=== PATIENT | male | born 1980 ===

== ENCOUNTER 2018-01-16 19:56 | Inpatient (IN) | payer MEDICARE, MEDICAID ==
[2018-01-16 19:56] VITALS: BMI 47.4
--- NOTE | 2018-01-16 20:25 | C.PDOC ---
History Of Present Illness 37yo male with history of appendectomy, GERD, colitis, diabetes, presents to ED for evaluation of epigastric abdominal pain since 1 pm today. Patient states he "felt the pain coming on" all day so he has not eaten anything. He states the pain has been worsening, is worse with deep inspiration, and is associated with nausea. He reports the pain also worsens with deep inspiration. Patient denies any fever, chills, vomiting, diarrhea, chest pain, shortness of breath. He denies any drug or alcohol use as well. He offers no other medical complaints. Time Seen by Provider: 01/16/18 20:25 Chief Complaint (Nursing): Abdominal Pain History Per: Patient History/Exam Limitations: no limitations Onset/Duration Of Symptoms: Hrs Current Symptoms Are (Timing): Still Present Location Of Pain/Discomfort: Epigastric Quality Of Discomfort: "Pain" Associated Symptoms: Nausea. denies: Fever, Chills, Vomiting, Diarrhea, Chest Pain Additional History Per: Patient Past Medical History Reviewed: Historical Data, Nursing Documentation, Vital Signs Vital Signs: Last Vital Signs Temp 97.4 F L 01/17/18 01:47 Pulse 84 01/17/18 01:47 Resp 20 01/17/18 01:47 BP 100/63 01/17/18 01:47 Pulse Ox 97 01/17/18 01:47 - Medical History PMH: Anxiety, Asthma, Bipolar Disorder, Bronchitis, Depression, Hypercholesterolemia, Schizophrenia, Seizures (PT. NOT SURE ONLY ONCE "I THINK BECAUSE I ABBY'T EATEN") Surgical History: Appendectomy - [facility] Procedures CLOSED ENDOSCOPIC BIOPSY OF LARGE INTESTINE (05/30/14) TETANUS TOXOID ADMINIST (05/26/13) Family History: States: Unknown Family Hx - Social History Hx Tobacco Use: Yes Hx Alcohol Use: Yes Hx Substance Use: Yes (marijuana) - Immunization History Hx Tetanus Toxoid Vaccination: No Hx Influenza Vaccination: No Hx Pneumococcal Vaccination: No Review Of Systems Except As Marked, All Systems Reviewed And Found Negative. Constitutional: Negative for: Fever, Chills Cardiovascular: Negative for: Chest Pain Gastrointestinal: Positive for: Nausea, Abdominal Pain. Negative for: Vomiting Physical Exam - Physical Exam Appears: Non-toxic Skin: Normal Color, Warm Head: Atraumatic, Normacephalic Eye(s): bilateral: Normal Inspection, PERRL, EOMI Oral Mucosa: Moist Neck: Normal ROM, Supple Chest: Symmetrical Cardiovascular: Rhythm Regular Respiratory: Normal Breath Sounds Gastrointestinal/Abdominal: Soft, Tenderness (epigastric and left upper quadrant ), No Mass, No Guarding, No Rebound Back: Normal Inspection, No CVA Tenderness Extremity: Normal ROM, No Pedal Edema Pulses: Left Dorsalis Pedis: Normal, Right Dorsalis Pedis: Normal Neurological/Psych: Oriented x3 ED Course And Treatment - Laboratory Results Result Diagrams: 01/16/18 20:49 01/16/18 20:49 ECG: Interpreted By Me, Viewed By Me ECG Rhythm: Sinus Rhythm ECG Interpretation: Normal Interpretation Of ECG: No ectopy, normal intervals Rate From EC O2 Sat by Pulse Oximetry: 99 (RA) Pulse Ox Interpretation: Normal Medical Decision Making Medical Decision Making: Impression: Epigastric abdominal pain Plan: -- Labs -- CXR -- IV Fluids -- Lidocaine 2% 15ml PO -- Zofran 4mg IVP -- Protonix 40mg IVP Time: 2149 Urinalysis reviewed, no signs of infection noted. Patient reports persistent abdominal pain, CT Abdomen/Pelvis with IV Contrast ordered. Time: 2234 CT Abdomen/Pelvis FINDINGS: Lung bases: No acute findings. Mediastinum: Small hiatal hernia. ABDOMEN: Liver: Few low-attenuation lesions with benign imaging features, up to 1.0 cm, stable. Gallbladder and bile ducts: No calcified stones. No ductal dilation. Pancreas: No ductal dilation. No mass. Spleen: No splenomegaly. Adrenals: No mass. Kidneys and ureters: Small calculus within LEFT kidney. Probable 1.1 cm RIGHT renal cyst. No hydronephrosis. Stomach and bowel: Scattered diverticula within colon. Moderate mural thickening short segment of distal descending colon. Moderate stranding within adjacent fat. No obstruction. Appendix: Appendectomy. PELVIS: Bladder: Borderline bladder wall thickening, 4-5 mm. Incomplete distention, limiting evaluation. Reproductive: Unremarkable as visualized. ABDOMEN and PELVIS: Intraperitoneal space: Small free fluid within pelvis. Few scattered tiny foci of extraluminal air within abdomen. Bones/joints: Degenerative changes of spine. No acute fracture. Soft tissues: Tiny RIGHT inguinal hernia containing fat. Small LEFT inguinal hernia containing fat. Tiny umbilical hernia containing fat. Vasculature: Unremarkable. No aneurysm. Lymph nodes: No pathologically enlarged lymph nodes. IMPRESSION: 1. Findings compatible with acute diverticulitis and perforation of descending colon. Recommend endoscopy following resolution. 2. Mild cystitis vs underdistention. Correlate with urinalysis. 3. Incidental/non-acute findings are described above. Time: [address] Ambrosio, who will admit patient. IV Rocephin and Flagyl ordered. Time: 2339 Case discussed with surgical nurse, consult placed for Dr. Welch. Disposition - Disposition Disposition: HOSPITALIZED Disposition Time: 04:01 Condition: GOOD - Clinical Impression Clinical Impression: Diverticulitis - Scribe Statement The provider has reviewed the documentation as recorded by the Scribe (Chiara Finnegan) Provider Attestation: All medical record entries made by the Scribe were at my direction and personally dictated by me. I have reviewed the chart and agree that the record accurately reflects my personal performance of the history, physical exam, medical decision making, and the department course for this patient. I have also personally directed, reviewed, and agree with the discharge instructions and disposition.
[2018-01-16] MEDS ORDERED: Sodium Chloride 0.9% 1,000 ML IV ONE (20:34)
[2018-01-16] MEDS ORDERED: Aluminum Hydroxide/Magnesium Hydroxide Susp (30 mL) PO STA (20:34)
[2018-01-16] MEDS ORDERED: Sodium Chloride 0.9% 1,000 ML ONE (20:43)
[2018-01-16] MEDS ORDERED: Aluminum Hydroxide/Magnesium Hydroxide Susp (30 mL) ONE (20:43)
[2018-01-16 20:52] LABS: BASO # 0.1 K/uL (0.0-0.2); BASO % 0.4 % (0.0-2.0); EOS % 0.1 % (0.0-4.0); HEMOGLOBIN 16.4 g/dL (12.0-18.0); LYMPH # 0.9 K/uL (1.0-4.3); LYMPH % 6.1 % (20.0-40.0); MEAN CELL VOLUME 89.8 fL (80.0-94.0); MEAN CORPUSCULAR HEMOGLOBIN 31.4 pg (27.0-31.0); MEAN PLATELET VOLUME 8.4 fL (7.2-11.7); MONO # 1.3 K/uL (0.0-0.8); MONO % 9.1 % (0.0-10.0); NEUT % 84.3 % (50.0-75.0); PLATELET COUNT 231 K/uL (130-400); RBC 5.23 Mil/uL (4.40-5.90); RED CELL DISTRIBUTION WIDTH 12.9 % (11.5-14.5); WHITE BLOOD COUNT 14.2 K/uL (4.8-10.8)
[2018-01-16 21:09] LABS: ALB/GLOB RATIO 0.9 (1.0-2.1); ALBUMIN 4.2 g/dL (3.5-5.0); ALT/SGPT 30 U/L (21-72); AST/SGOT 33 U/L (17-59); BLOOD UREA NITROGEN 13 mg/dL (9-20); CALCIUM 9.6 mg/dl (8.6-10.4); GFR AFRICAN-AMERICAN > 60; GFR NON-AFRICAN AMERICAN > 60; LIPASE 63 U/L (23-300)
[2018-01-16 21:42] LABS: BANDS 1 % (0-2); LYMPHOCYTE 5 % (20-40); MONOCYTE 10 % (0-10); NEUTROPHIL 84 % (50-75); PLATELET ESTIMATE NORMAL (NORMAL); TOTAL CELLS COUNTED 100
[2018-01-16 21:49] LABS: URINE BILIRUBIN NEGATIVE (NEGATIVE); URINE BLOOD NEGATIVE (NEGATIVE); URINE CLARITY Clear (Clear); URINE COLOR Yellow (YELLOW); URINE GLUCOSE (UA) NORMAL (Normal); URINE LEUKOCYTE ESTERASE NEG Leu/uL (Negative); URINE PROTEIN NEGATIVE (NEGATIVE)
[2018-01-16] MEDS ORDERED: Morphine 4 MG/ML VIAL IV ONE ×2 (21:54→23:50)
[2018-01-16] MEDS ORDERED: Morphine 4 MG/ML VIAL ONE (22:02)
[2018-01-16] MEDS ORDERED: Iodixanol 320 MG/ML 100 ML BOTTLE IV ONE (22:24)
--- NOTE | 2018-01-16 23:32 | CT ---
EXAM: CT Abdomen and Pelvis With Intravenous Contrast CLINICAL HISTORY: 37 years old, male; Pain; Abdominal pain; Epigastric; Prior surgery; Surgery date: 6+ months; Surgery type: Appendectomy as a child; Patient HX: Gerd , dm; Additional info: Abd pain since 1 pm today TECHNIQUE: Axial computed tomography images of the abdomen and pelvis with intravenous contrast. All CT scans at this facility use one or more dose reduction techniques, viz.: automated exposure control; ma/kV adjustment per patient size (including targeted exams where dose is matched to indication; i.e. head); or iterative reconstruction technique. Coronal and sagittal reformatted images were created and reviewed. CONTRAST: 100 mL of visipaque administered intravenously. COMPARISON: CT - ABD PELVIS IV CONTRAST ONLY 2015-01-03 12:44 FINDINGS: Lung bases: No acute findings. Mediastinum: Small hiatal hernia. ABDOMEN: Liver: Few low-attenuation lesions with benign imaging features, up to 1.0 cm, stable. Gallbladder and bile ducts: No calcified stones. No ductal dilation. Pancreas: No ductal dilation. No mass. Spleen: No splenomegaly. Adrenals: No mass. Kidneys and ureters: Small calculus within LEFT kidney. Probable 1.1 cm RIGHT renal cyst. No hydronephrosis. Stomach and bowel: Scattered diverticula within colon. Moderate mural thickening short segment of distal descending colon. Moderate stranding within adjacent fat. No obstruction. Appendix: Appendectomy. PELVIS: Bladder: Borderline bladder wall thickening, 4-5 mm. Incomplete distention, limiting evaluation. Reproductive: Unremarkable as visualized. ABDOMEN and PELVIS: Intraperitoneal space: Small free fluid within pelvis. Few scattered tiny foci of extraluminal air within abdomen. Bones/joints: Degenerative changes of spine. No acute fracture. Soft tissues: Tiny RIGHT inguinal hernia containing fat. Small LEFT inguinal hernia containing fat. Tiny umbilical hernia containing fat. Vasculature: Unremarkable. No aneurysm. Lymph nodes: No pathologically enlarged lymph nodes. IMPRESSION: 1. Findings compatible with acute diverticulitis and perforation of descending colon. Recommend endoscopy following resolution. 2. Mild cystitis vs underdistention. Correlate with urinalysis. 3. Incidental/non-acute findings are described above. THIS REPORT CONTAINS FINDINGS THAT MAY BE CRITICAL TO PATIENT CARE. The findings were verbally communicated via telephone conference with Rosa Enrique at 11:31 PM EDT on 01/16/2018. The findings were acknowledged and understood.
[2018-01-16] MEDS ORDERED: cefTRIAXone 1 gm in Water For Injection 2.1 ML IVPB STA (23:47)
[2018-01-16] MEDS ORDERED: metroNIDAZOLE IV 500 mg/100 ml 500 MG/100 ML BAG IVPB STA (23:49)
[2018-01-17] MEDS ORDERED: cefTRIAXone IV 1 gm in Dextros 50 ML IVPB STA
--- NOTE | 2018-01-17 00:08 | CP.PCM.HP ---
<RonelCrescencio bland - Last Filed: 01/17/18 00:42> History of Present Illness - History of Present Illness History of Present Illness: CC: Abdominal pain, diarrhea,nausea for 1d PMD: Dr. Nam in [facility] This patient is a 37yo M w/ a PMhx of depression/anxiety on Modafanil, HTN, and DM (not taking HTn or DM meds) who is coming into the hospital for a 1d history of intense, band like, abdominal pain associated with nausea and diarrhea. He denies blood in the stool. He has had pain like this in the past before, but never this bad and it normally goes away on its own. He admits to fevers/chills , and feeling very thirsty. He denies any chest pain, SOB, dysuria/freq/urg or lower extremity pain/swelling. PMHx: depression/anxiety, HTN, DM Meds: Modafanil, cannot remember HTN or DM meds Allergies: None Surgery: Appendectomy at age 14 Famhx: DM, HTN, Epilepsy, mother at 62 from diabetes and epilepsy Social: previous smoker, 1ppd for 24 years, stopped 2 weeks ago, monthly marijuana use, denies all other illicit drugs or EtOH Present on Admission - Present on Admission Any Indicators Present on Admission: No History of DVT/PE: No History of Uncontrolled Diabetes: Yes Urinary Catheter: No Decubitus Ulcer Present: No Past Patient History - Infectious Disease Hx of Infectious Diseases: None - Past Medical History & Family History Past Medical History?: Yes - Past Social History Smoking Status: Heavy Smoker > 10 Cigarettes Daily - CARDIAC Hx Hypercholesterolemia: Yes - PULMONARY Hx Asthma: Yes Hx Bronchitis: Yes - NEUROLOGICAL Hx Seizures: Yes (PT. NOT SURE ONLY ONCE "I THINK BECAUSE I ABBY'T EATEN") - HEENT Hx HEENT Problems: Yes Hx Cataracts: Yes (BILAT. - NO SURGERY YET) - ENDOCRINE/METABOLIC Hx Endocrine Disorders: Yes Hx Diabetes Mellitus Type 1: Yes - HEMATOLOGICAL/ONCOLOGICAL Hx Cancer: No - INTEGUMENTARY Hx Dermatological Problems: No - MUSCULOSKELETAL/RHEUMATOLOGICAL Hx Musculoskeletal Disorders: No - GASTROINTESTINAL Hx Gastrointestinal Disorders: No - GENITOURINARY/GYNECOLOGICAL Hx Genitourinary Disorders: No - PSYCHIATRIC Hx Anxiety: Yes Hx Bipolar Disorder: Yes Hx Depression: Yes Hx Schizophrenia: Yes Hx Substance Use: Yes (marijuana) - SURGICAL HISTORY Hx Appendectomy: Yes - ANESTHESIA Hx Anesthesia: Yes Hx Anesthesia Reactions: No Hx Malignant Hyperthermia: No Meds Allergies/Adverse Reactions: Allergies Allergy/AdvReac Type Severity Reaction Status Date / Time No Known Allergies Allergy Verified 01/16/18 20:16 Physical Exam - Constitutional Appears: Non-toxic Additional comments: uncomfortable; tired but response to questions in obvious pain - Head Exam Head Exam: ATRAUMATIC - Eye Exam Eye Exam: EOMI, Normal appearance, PERRL Pupil Exam: PERRL - ENT Exam ENT Exam: Mucous Membranes Dry - Neck Exam Neck exam: Positive for: Full Rom. Negative for: Lymphadenopathy, Thyromegaly - Respiratory Exam Respiratory Exam: Clear to Auscultation Bilateral, NORMAL BREATHING PATTERN. absent: Rales, Rhonchi, Wheezes - Cardiovascular Exam Cardiovascular Exam: Tachycardia, +S1, +S2. absent: Diastolic murmur, Systolic Murmur - GI/Abdominal Exam GI & Abdominal Exam: Guarding, Rebound, Soft, Tenderness. absent: Normal Bowel Sounds (hyperactive bowel sounds), Organomegaly, Pulsatile Mass, Rigid - Extremities Exam Extremities exam: Positive for: full ROM. Negative for: calf tenderness, pedal edema - Back Exam Back exam: NORMAL INSPECTION. absent: CVA tenderness (L), CVA tenderness (R) - Neurological Exam Neurological exam: Alert, Oriented x3 - Psychiatric Exam Psychiatric exam: Normal Affect - Skin Skin Exam: Warm Results - Vital Signs Recent Vital Signs: Last Vital Signs Temp 98.5 F 01/16/18 20:09 Pulse 86 01/16/18 23:05 Resp 18 01/16/18 23:05 BP 112/60 01/16/18 23:05 Pulse Ox 99 01/16/18 23:41 - Labs Result Diagrams: 01/16/18 20:49 01/16/18 20:49 Labs: Laboratory Results - last 24 hr 01/16/18 01/16/18 01/16/18 20:49 20:49 21:43 WBC 14.2 H D RBC 5.23 Hgb 16.4 Hct 46.9 MCV 89.8 MCH 31.4 H MCHC 35.0 RDW 12.9 Plt Count 231 MPV 8.4 Neut % (Auto) 84.3 H Lymph % (Auto) 6.1 L Weber % (Auto) 9.1 Eos % (Auto) 0.1 Baso % (Auto) 0.4 Neut # (Auto) 12.0 H Lymph # (Auto) 0.9 L Weber # (Auto) 1.3 H Eos # (Auto) 0.0 Baso # (Auto) 0.1 Neutrophils % (Manual) 84 H Band Neutrophils % 1 Lymphocytes % (Manual) 5 L Monocytes % (Manual) 10 Platelet Estimate Normal Sodium 136 Potassium 4.1 Chloride 95 L Carbon Dioxide 28 Anion Gap 17 BUN 13 Creatinine 1.0 Est GFR ( Amer) > 60 Est GFR (Non-Af Amer) > 60 Random Glucose 130 H Calcium 9.6 Total Bilirubin 1.2 AST 33 ALT 30 Alkaline Phosphatase 58 Troponin I < 0.0120 Total Protein 8.9 H Albumin 4.2 Globulin 4.7 H Albumin/Globulin Ratio 0.9 L Lipase 63 Urine Color Yellow Urine Clarity Clear Urine pH 6.0 Ur Specific [place] 1.024 Urine Protein Negative Urine Glucose (UA) Normal Urine Ketones Negative Urine Blood Negative Urine Nitrate Negative Urine Bilirubin Negative Urine Urobilinogen 4.0 Ur Leukocyte Esterase Neg Urine WBC (Auto) 1 Urine RBC (Auto) 2 Assessment & Plan - Assessment and Plan (Free Text) Assessment: 37yo M admitted for Severe Diverticulitis with Microperforations Severe Recurrent Diverticulitis with Microperforation; 3rd instance -please refer to CAT scan for full results -received cipro and ceftriaxone in ED; will c/w with Zosyn 3.375mg Q6H and metronidazole 500mg Q8H -surgical consult; Dr. Welch; appreciate recs -NPO -1L bolus followed by 150ml/Hr maintenance -WBC 14.2, with tachycardia and source of infection -f/u VBG Lactate and blood cultures -f/u type and screen, EKG, Chest-X-ray for surgical clearance Uncontrolled DM -f/u HBA1C -insulin Low -hypoglycemia protocol -f/u TSH/Lipid Panel Depression/Anxiety -c/w Modafanil Prophylaxis -SCD -GI prophylaxis not indicated Case discussed and seen with Dr. Daily Mart PGY2 Decision To Admit - Pt Status Changed To: Hospital Disposition Of: Inpatient - Admit Certification Admit to Inpatient:: After my assessment, the patient will require hospitalization for at least two midnights. This is because of the severity of symptoms shown, intensity of services needed, and/or the medical risk in this patient being treated as an outpatient. - InPatient: Physician Admission Certification:: Sepsis, Severe recurrent diverticulitis - . Bed Request Type: Telemetry Admitting Physician: Dilip Ambrosio <Dilip Ambrosio - Last Filed: 01/17/18 07:22> Results - Vital Signs Recent Vital Signs: Last Vital Signs Temp 97.4 F L 01/17/18 01:47 Pulse 84 01/17/18 01:47 Resp 20 01/17/18 01:47 BP 100/63 01/17/18 01:47 Pulse Ox 99 01/17/18 04:02 - Labs Result Diagrams: 01/16/18 20:49 01/16/18 20:49 Labs: Laboratory Results - last 24 hr 01/16/18 01/16/18 01/16/18 20:49 20:49 21:43 WBC 14.2 H D RBC 5.23 Hgb 16.4 Hct 46.9 MCV 89.8 MCH 31.4 H MCHC 35.0 RDW 12.9 Plt Count 231 MPV 8.4 Neut % (Auto) 84.3 H Lymph % (Auto) 6.1 L Weber % (Auto) 9.1 Eos % (Auto) 0.1 Baso % (Auto) 0.4 Neut # (Auto) 12.0 H Lymph # (Auto) 0.9 L Weber # (Auto) 1.3 H Eos # (Auto) 0.0 Baso # (Auto) 0.1 Neutrophils % (Manual) 84 H Band Neutrophils % 1 Lymphocytes % (Manual) 5 L Monocytes % (Manual) 10 Platelet Estimate Normal pO2 VBG pH VBG pCO2 VBG HCO3 VBG Total CO2 VBG O2 Sat (Calc) VBG Base Excess VBG Potassium Glucose Lactate Crit Value Called To Crit Value Called By Crit Value Read Back Blood Gas Notified Time Sodium 136 Potassium 4.1 Chloride 95 L Carbon Dioxide 28 Anion Gap 17 BUN 13 Creatinine 1.0 Est GFR ( Amer) > 60 Est GFR (Non-Af Amer) > 60 POC Glucose (mg/dL) Random Glucose 130 H Calcium 9.6 Total Bilirubin 1.2 AST 33 ALT 30 Alkaline Phosphatase 58 Troponin I < 0.0120 Total Protein 8.9 H Albumin 4.2 Globulin 4.7 H Albumin/Globulin Ratio 0.9 L Lipase 63 Venous Blood Potassium Urine Color Yellow Urine Clarity Clear Urine pH 6.0 Ur Specific [place] 1.024 Urine Protein Negative Urine Glucose (UA) Normal Urine Ketones Negative Urine Blood Negative Urine Nitrate Negative Urine Bilirubin Negative Urine Urobilinogen 4.0 Ur Leukocyte Esterase Neg Urine WBC (Auto) 1 Urine RBC (Auto) 2 Urine Opiates Screen Urine Methadone Screen Ur Barbiturates Screen Ur Phencyclidine Scrn Ur Amphetamines Screen U Benzodiazepines Scrn U Oth Cocaine Metabols Blood Type Antibody Screen 01/17/18 01/17/18 01/17/18 00:03 00:28 00:37 WBC RBC Hgb Hct MCV MCH MCHC RDW Plt Count MPV Neut % (Auto) Lymph % (Auto) Weber % (Auto) Eos % (Auto) Baso % (Auto) Neut # (Auto) Lymph # (Auto) Weber # (Auto) Eos # (Auto) Baso # (Auto) Neutrophils % (Manual) Band Neutrophils % Lymphocytes % (Manual) Monocytes % (Manual) Platelet Estimate pO2 43 VBG pH 7.40 VBG pCO2 40 VBG HCO3 24.4 VBG Total CO2 26.0 VBG O2 Sat (Calc) 84.7 H VBG Base Excess 0.0 VBG Potassium 3.8 Glucose 112 H Lactate 1.5 Crit Value Called To Dr ambrosio Crit Value Called By Elizabeth alejandre rt Crit Value Read Back Y Blood Gas Notified Time 122 Sodium 136.0 Potassium Chloride 103.0 Carbon Dioxide Anion Gap BUN Creatinine Est GFR ( Amer) Est GFR (Non-Af Amer) POC Glucose (mg/dL) 135 H Random Glucose Calcium Total Bilirubin AST ALT Alkaline Phosphatase Troponin I Total Protein Albumin Globulin Albumin/Globulin Ratio Lipase Venous Blood Potassium 3.8 Urine Color Urine Clarity Urine pH Ur Specific [place] Urine Protein Urine Glucose (UA) Urine Ketones Urine Blood Urine Nitrate Urine Bilirubin Urine Urobilinogen Ur Leukocyte Esterase Urine WBC (Auto) Urine RBC (Auto) Urine Opiates Screen Negative Urine Methadone Screen Negative Ur Barbiturates Screen Negative Ur Phencyclidine Scrn Negative Ur Amphetamines Screen Negative U Benzodiazepines Scrn Negative U Oth Cocaine Metabols Negative Blood Type Antibody Screen 01/17/18 00:41 WBC RBC Hgb Hct MCV MCH MCHC RDW Plt Count MPV Neut % (Auto) Lymph % (Auto) Weber % (Auto) Eos % (Auto) Baso % (Auto) Neut # (Auto) Lymph # (Auto) Weber # (Auto) Eos # (Auto) Baso # (Auto) Neutrophils % (Manual) Band Neutrophils % Lymphocytes % (Manual) Monocytes % (Manual) Platelet Estimate pO2 VBG pH VBG pCO2 VBG HCO3 VBG Total CO2 VBG O2 Sat (Calc) VBG Base Excess VBG Potassium Glucose Lactate Crit Value Called To Crit Value Called By Crit Value Read Back Blood Gas Notified Time Sodium Potassium Chloride Carbon Dioxide Anion Gap BUN Creatinine Est GFR ( Amer) Est GFR (Non-Af Amer) POC Glucose (mg/dL) Random Glucose Calcium Total Bilirubin AST ALT Alkaline Phosphatase Troponin I Total Protein Albumin Globulin Albumin/Globulin Ratio Lipase Venous Blood Potassium Urine Color Urine Clarity Urine pH Ur Specific [place] Urine Protein Urine Glucose (UA) Urine Ketones Urine Blood Urine Nitrate Urine Bilirubin Urine Urobilinogen Ur Leukocyte Esterase Urine WBC (Auto) Urine RBC (Auto) Urine Opiates Screen Urine Methadone Screen Ur Barbiturates Screen Ur Phencyclidine Scrn Ur Amphetamines Screen U Benzodiazepines Scrn U Oth Cocaine Metabols Blood Type A NEGATIVE Antibody Screen Negative Attending/Attestation - Attestation I have personally seen and examined this patient.: Yes I have fully participated in the care of the patient.: Yes I have reviewed all pertinent clinical information: Yes Notes (Text): 3 episodes of diverticulitis in the same area, seen on CT 2012, this time with microprforation, fever, sepsis. Plan NPO IV abx IVF When recovers from the episode then need removal of portion of the descending colon, to prevent recurrences, High fiber diet for chronic constipation once recovers form the episode.
[2018-01-17] MEDS ORDERED: Morphine 4 MG/ML VIAL ONE (00:10)
[2018-01-17] MEDS ORDERED: Sodium Chloride 0.9% 1,000 ML IV ONE ×2 (00:34→01:19)
[2018-01-17] MEDS ORDERED: Glucagon Recombinant 1 mg Inj IM PRN (00:46)
[2018-01-17] MEDS ORDERED: Dextrose 50% SYRINGE Inj (50 ml) IV PRN (00:46)
[2018-01-17 00:59] LABS: BARBITURATES, UR NEGATIVE (NEGATIVE); BENZODIAZEPINES, UR NEGATIVE (NEGATIVE); OPIATES, UR NEGATIVE (NEGATIVE); PHENCYCLIDINE, UR NEGATIVE (NEGATIVE)
[2018-01-17 01:23] LABS: VENOUS BLOOD GAS PCO2 40 mmHg (40-60); VENOUS BLOOD GAS PO2 43 mm/Hg (30-55)
[2018-01-17] MEDS: Piperacill/Tazo 3.375gm in Dex 3.375 GM/50 ML BAG IVPB SCH ×4 (01:55→18:05)
[2018-01-17] MEDS: Sodium Chloride 0.9% 1,000 ML IV SCH ×4 (02:00→20:15)
[2018-01-17] MEDS: metroNIDAZOLE IV 500 mg/100 ml 500 MG/100 ML BAG IVPB SCH ×3 (05:41→21:31)
--- NOTE | 2018-01-17 06:30 | CP.PCM.CON ---
History of Present Illness - History of Present Illness History of Present Illness: General Surgery - Dr. Welch 37yo w/ hx of Depression presenting with LLQ abdominal pain since yesterday. Pt states the pain began around 1pm, located in the central and LLQ abdomen, radiating up towards the epigastric region, described as a sharp/scratching pain. He had associated nausea, and subjective fevers/chills. He denies any vomiting, diarrhea, dysuria, hematuria, blood in stool. He also admits to constipation. Pt states he's had diverticulitis 1 or 2 times before in the past which was treated conservatively PMH: depression, HTN, DM PSH: Open appy at age 14 Meds as per Chart NKDA Social: previous smoker, 1ppd for 24 years, stopped 2 weeks ago, monthly marijuana use, denies all other illicit drugs or EtOH Review of Systems - Review of Systems All systems: reviewed and no additional remarkable complaints except (as per HPI ) Past Patient History - Infectious Disease Hx of Infectious Diseases: None - Past Medical History & Family History Past Medical History?: Yes - Past Social History Smoking Status: Heavy Smoker > 10 Cigarettes Daily - CARDIAC Hx Hypercholesterolemia: Yes - PULMONARY Hx Asthma: Yes Hx Bronchitis: Yes - NEUROLOGICAL Hx Seizures: Yes (PT. NOT SURE ONLY ONCE "I THINK BECAUSE I ABBY'T EATEN") - HEENT Hx HEENT Problems: Yes Hx Cataracts: Yes (BILAT. - NO SURGERY YET) - ENDOCRINE/METABOLIC Hx Endocrine Disorders: Yes Hx Diabetes Mellitus Type 1: Yes - HEMATOLOGICAL/ONCOLOGICAL Hx Cancer: No - INTEGUMENTARY Hx Dermatological Problems: No - MUSCULOSKELETAL/RHEUMATOLOGICAL Hx Falls: No - GASTROINTESTINAL Hx Gastrointestinal Disorders: No - GENITOURINARY/GYNECOLOGICAL Hx Genitourinary Disorders: No - PSYCHIATRIC Hx Anxiety: Yes Hx Bipolar Disorder: Yes Hx Depression: Yes Hx Schizophrenia: Yes Hx Substance Use: Yes (marijuana) - SURGICAL HISTORY Hx Appendectomy: Yes - ANESTHESIA Hx Anesthesia: Yes Hx Anesthesia Reactions: No Hx Malignant Hyperthermia: No Meds Allergies/Adverse Reactions: Allergies Allergy/AdvReac Type Severity Reaction Status Date / Time No Known Allergies Allergy Verified 01/16/18 20:16 - Medications Medications: Current Medications Dextrose (Dextrose 50% Inj) 0 ml IV STAT PRN; Protocol PRN Reason: Hypoglycemia Protocol Dextrose (Glutose 15) 0 gm PO ONCE PRN; Protocol PRN Reason: Hypoglycemia Protocol Glucagon (Glucagen Diagnostic Kit) 0 mg IM STAT PRN; Protocol PRN Reason: Hypoglycemia Protocol Sodium Chloride (Sodium Chloride 0.9%) 1,000 mls @ 150 mls/hr IV .Q6H40M [facility] Last Admin: 01/17/18 02:00 Dose: 150 mls/hr Metronidazole (Flagyl) 500 mg in 100 mls @ 100 mls/hr IVPB Q8 [facility] PRN Reason: Protocol Last Admin: 01/17/18 05:41 Dose: 100 mls/hr Piperacillin Sod/Tazobactam Sod (Zosyn 3.375 Gm Iv Premix) 3.375 gm in 50 mls @ 100 mls/hr IVPB Q6H [facility] PRN Reason: Protocol Last Admin: 01/17/18 01:55 Dose: 100 mls/hr Dextrose (Dextrose 5% In Water 1000 Ml) 1,000 mls @ 0 mls/hr IV .Q0M PRN; Protocol; Per Protocol PRN Reason: Hypoglycemia Protocol Insulin Aspart (Novolog) 0 unit SC ACHS [facility] PRN Reason: Protocol Ketorolac Tromethamine (Toradol) 30 mg IV Q6 PRN PRN Reason: Pain, moderate (4-7) Last Admin: 01/17/18 01:53 Dose: 30 mg Modafinil (Provigil) 100 mg PO DAILY [facility] Morphine Sulfate (Morphine) 2 mg IVP Q6H PRN PRN Reason: Pain, severe (8-10) Ondansetron HCl (Zofran Inj) 4 mg IVP Q6 PRN PRN Reason: Nausea/Vomiting Pneumococcal Polyvalent Vaccine (Pneumovax 23 Vaccine) 0.5 ml IM .ONCE ONE Stop: 01/20/18 10:01 Physical Exam - Constitutional Appears: No Acute Distress - Head Exam Head Exam: ATRAUMATIC, NORMAL INSPECTION, NORMOCEPHALIC - Eye Exam Eye Exam: Normal appearance - Respiratory Exam Respiratory Exam: NORMAL BREATHING PATTERN. absent: Respiratory Distress - Cardiovascular Exam Cardiovascular Exam: REGULAR RHYTHM - GI/Abdominal Exam GI & Abdominal Exam: Guarding, Soft, Tenderness (LLQ, Periumbilical). absent: Distended, Firm, Hernia, Rebound, Rigid - Neurological Exam Neurological exam: Alert, Oriented x3 - Psychiatric Exam Psychiatric exam: Normal Affect, Normal Mood - Skin Skin Exam: Dry, Intact Results - Vital Signs Recent Vital Signs: Last Vital Signs Temp 97.4 F L 01/17/18 01:47 Pulse 84 01/17/18 01:47 Resp 20 01/17/18 01:47 BP 100/63 01/17/18 01:47 Pulse Ox 99 01/17/18 04:02 - Labs Result Diagrams: 01/16/18 20:49 01/16/18 20:49 Labs: Laboratory Results - last 24 hr 01/16/18 01/16/18 01/16/18 20:49 20:49 21:43 WBC 14.2 H D RBC 5.23 Hgb 16.4 Hct 46.9 MCV 89.8 MCH 31.4 H MCHC 35.0 RDW 12.9 Plt Count 231 MPV 8.4 Neut % (Auto) 84.3 H Lymph % (Auto) 6.1 L [place] % (Auto) 9.1 Eos % (Auto) 0.1 Baso % (Auto) 0.4 Neut # (Auto) 12.0 H Lymph # (Auto) 0.9 L [place] # (Auto) 1.3 H Eos # (Auto) 0.0 Baso # (Auto) 0.1 Neutrophils % (Manual) 84 H Band Neutrophils % 1 Lymphocytes % (Manual) 5 L Monocytes % (Manual) 10 Platelet Estimate Normal pO2 VBG pH VBG pCO2 VBG HCO3 VBG Total CO2 VBG O2 Sat (Calc) VBG Base Excess VBG Potassium Glucose Lactate Crit Value Called To Crit Value Called By Crit Value Read Back Blood Gas Notified Time Sodium 136 Potassium 4.1 Chloride 95 L Carbon Dioxide 28 Anion Gap 17 BUN 13 Creatinine 1.0 Est GFR ( Amer) > 60 Est GFR (Non-Af Amer) > 60 POC Glucose (mg/dL) Random Glucose 130 H Calcium 9.6 Total Bilirubin 1.2 AST 33 ALT 30 Alkaline Phosphatase 58 Troponin I < 0.0120 Total Protein 8.9 H Albumin 4.2 Globulin 4.7 H Albumin/Globulin Ratio 0.9 L Lipase 63 Venous Blood Potassium Urine Color Yellow Urine Clarity Clear Urine pH 6.0 Ur Specific [place] 1.024 Urine Protein Negative Urine Glucose (UA) Normal Urine Ketones Negative Urine Blood Negative Urine Nitrate Negative Urine Bilirubin Negative Urine Urobilinogen 4.0 Ur Leukocyte Esterase Neg Urine WBC (Auto) 1 Urine RBC (Auto) 2 Urine Opiates Screen Urine Methadone Screen Ur Barbiturates Screen Ur Phencyclidine Scrn Ur Amphetamines Screen U Benzodiazepines Scrn U Oth Cocaine Metabols Blood Type Antibody Screen 01/17/18 01/17/18 01/17/18 00:03 00:28 00:37 WBC RBC Hgb Hct MCV MCH MCHC RDW Plt Count MPV Neut % (Auto) Lymph % (Auto) [place] % (Auto) Eos % (Auto) Baso % (Auto) Neut # (Auto) Lymph # (Auto) [place] # (Auto) Eos # (Auto) Baso # (Auto) Neutrophils % (Manual) Band Neutrophils % Lymphocytes % (Manual) Monocytes % (Manual) Platelet Estimate pO2 43 VBG pH 7.40 VBG pCO2 40 VBG HCO3 24.4 VBG Total CO2 26.0 VBG O2 Sat (Calc) 84.7 H VBG Base Excess 0.0 VBG Potassium 3.8 Glucose 112 H Lactate 1.5 Crit Value Called To Dr cruz Crit Value Called By Elizabeth alejandre rt Crit Value Read Back Y Blood Gas Notified Time 122 Sodium 136.0 Potassium Chloride 103.0 Carbon Dioxide Anion Gap BUN Creatinine Est GFR ( Amer) Est GFR (Non-Af Amer) POC Glucose (mg/dL) 135 H Random Glucose Calcium Total Bilirubin AST ALT Alkaline Phosphatase Troponin I Total Protein Albumin Globulin Albumin/Globulin Ratio Lipase Venous Blood Potassium 3.8 Urine Color Urine Clarity Urine pH Ur Specific [place] Urine Protein Urine Glucose (UA) Urine Ketones Urine Blood Urine Nitrate Urine Bilirubin Urine Urobilinogen Ur Leukocyte Esterase Urine WBC (Auto) Urine RBC (Auto) Urine Opiates Screen Negative Urine Methadone Screen Negative Ur Barbiturates Screen Negative Ur Phencyclidine Scrn Negative Ur Amphetamines Screen Negative U Benzodiazepines Scrn Negative U Oth Cocaine Metabols Negative Blood Type Antibody Screen 01/17/18 00:41 WBC RBC Hgb Hct MCV MCH MCHC RDW Plt Count MPV Neut % (Auto) Lymph % (Auto) [place] % (Auto) Eos % (Auto) Baso % (Auto) Neut # (Auto) Lymph # (Auto) [place] # (Auto) Eos # (Auto) Baso # (Auto) Neutrophils % (Manual) Band Neutrophils % Lymphocytes % (Manual) Monocytes % (Manual) Platelet Estimate pO2 VBG pH VBG pCO2 VBG HCO3 VBG Total CO2 VBG O2 Sat (Calc) VBG Base Excess VBG Potassium Glucose Lactate Crit Value Called To Crit Value Called By Crit Value Read Back Blood Gas Notified Time Sodium Potassium Chloride Carbon Dioxide Anion Gap BUN Creatinine Est GFR ( Amer) Est GFR (Non-Af Amer) POC Glucose (mg/dL) Random Glucose Calcium Total Bilirubin AST ALT Alkaline Phosphatase Troponin I Total Protein Albumin Globulin Albumin/Globulin Ratio Lipase Venous Blood Potassium Urine Color Urine Clarity Urine pH Ur Specific [place] Urine Protein Urine Glucose (UA) Urine Ketones Urine Blood Urine Nitrate Urine Bilirubin Urine Urobilinogen Ur Leukocyte Esterase Urine WBC (Auto) Urine RBC (Auto) Urine Opiates Screen Urine Methadone Screen Ur Barbiturates Screen Ur Phencyclidine Scrn Ur Amphetamines Screen U Benzodiazepines Scrn U Oth Cocaine Metabols Blood Type A NEGATIVE Antibody Screen Negative Assessment & Plan - Assessment and Plan (Free Text) Assessment: 37yo M w/ acute diverticulitis with microperforation -Conservative management -NPO, IVF hydration -IV Abx - Zosyn/Flagyl -Toradol and Morphine for pain -No acute surgical intervention, will monitor closely DW Dr Yuri Ma PGy3
--- NOTE | 2018-01-17 07:55 | RAD ---
Chest x-ray single frontal view History: Abdominal pain. Comparison: None available. Findings: Mild venous congestion. Right hilar prominence. Heart size within normal limits. Degenerative changes in the spine and shoulders. Impression: Mild venous congestion. Right hilar prominence.
--- NOTE | 2018-01-17 08:11 | RAD ---
Chest x-ray single frontal view History: Free air. Comparison: None available. Findings: Mild venous congestion. Right hilar prominence. Heart size within normal limits. Degenerative changes in the spine and shoulders. Impression: Mild venous congestion. Right hilar prominence. Heart size within normal limits.
[2018-01-17] MEDS: (Novolog) Insulin Aspart, Recombinant 100 u/ml 10 ml vial SC SCH ×4 (08:13→21:49)
--- NOTE | 2018-01-17 09:04 | CP.PCM.PN ---
<Jordyn Soto - Last Filed: 01/17/18 14:50> Subjective - Date & Time of Evaluation Date of Evaluation: 01/17/18 Time of Evaluation: 07:00 - Subjective Subjective: PGY1- Medicine Note Patient seen and examined and in no acute distress. Patient says he still has a lot of abdominal pain which he rates 7/10, but says it is significantly better today compared to yesterday. Patient says he is having a lot of gas, but has not had a bowel movement. Patient denies any chest pain, shortness of breath, nausea, or vomiting. Objective - Vital Signs/Intake and Output Vital Signs (last 24 hours): Temp Pulse Resp BP Pulse Ox 98.8 F 64 20 127/70 99 01/17/18 08:24 01/17/18 08:24 01/17/18 08:24 01/17/18 08:24 01/17/18 08:24 Intake and Output: 01/17/18 01/17/18 06:59 18:59 Intake Total 1150 Balance 1150 - Medications Medications: Current Medications Dextrose (Dextrose 50% Inj) 0 ml IV STAT PRN; Protocol PRN Reason: Hypoglycemia Protocol Dextrose (Glutose 15) 0 gm PO ONCE PRN; Protocol PRN Reason: Hypoglycemia Protocol Glucagon (Glucagen Diagnostic Kit) 0 mg IM STAT PRN; Protocol PRN Reason: Hypoglycemia Protocol Sodium Chloride (Sodium Chloride 0.9%) 1,000 mls @ 150 mls/hr IV .Q6H40M [facility] Last Admin: 01/17/18 06:55 Dose: Not Given Metronidazole (Flagyl) 500 mg in 100 mls @ 100 mls/hr IVPB Q8 [facility] PRN Reason: Protocol Last Admin: 01/17/18 05:41 Dose: 100 mls/hr Piperacillin Sod/Tazobactam Sod (Zosyn 3.375 Gm Iv Premix) 3.375 gm in 50 mls @ 100 mls/hr IVPB Q6H [facility] PRN Reason: Protocol Last Admin: 01/17/18 06:31 Dose: 100 mls/hr Dextrose (Dextrose 5% In Water 1000 Ml) 1,000 mls @ 0 mls/hr IV .Q0M PRN; Protocol; Per Protocol PRN Reason: Hypoglycemia Protocol Insulin Aspart (Novolog) 0 unit SC ACHS [facility] PRN Reason: Protocol Last Admin: 01/17/18 08:13 Dose: Not Given Ketorolac Tromethamine (Toradol) 30 mg IV Q6 PRN PRN Reason: Pain, moderate (4-7) Last Admin: 01/17/18 01:53 Dose: 30 mg Modafinil (Provigil) 100 mg PO DAILY [facility] Morphine Sulfate (Morphine) 2 mg IVP Q6H PRN PRN Reason: Pain, severe (8-10) Ondansetron HCl (Zofran Inj) 4 mg IVP Q6 PRN PRN Reason: Nausea/Vomiting Pneumococcal Polyvalent Vaccine (Pneumovax 23 Vaccine) 0.5 ml IM .ONCE ONE Stop: 01/20/18 10:01 - Labs Labs: 01/16/18 20:49 01/16/18 20:49 - Constitutional Appears: Non-toxic, No Acute Distress - Head Exam Head Exam: ATRAUMATIC, NORMAL INSPECTION, NORMOCEPHALIC - Eye Exam Eye Exam: EOMI, Normal appearance Pupil Exam: PERRL - ENT Exam ENT Exam: Mucous Membranes Moist - Respiratory Exam Respiratory Exam: Clear to Ausculation Bilateral, NORMAL BREATHING PATTERN. absent: Rales, Rhonchi, Wheezes, Respiratory Distress - Cardiovascular Exam Cardiovascular Exam: REGULAR RHYTHM, RRR, +S1, +S2. absent: Murmur - GI/Abdominal Exam GI & Abdominal Exam: Guarding, Tenderness, Normal Bowel Sounds. absent: Firm - Extremities Exam Extremities Exam: Full ROM, Normal Inspection. absent: Pedal Edema - Neurological Exam Neurological Exam: Alert, Awake, Oriented x3 - Psychiatric Exam Psychiatric exam: Normal Affect, Normal Mood - Skin Skin Exam: Intact, Normal Color, Warm Assessment and Plan - Assessment and Plan (Free Text) Assessment: Severe Recurrent Diverticulitis with Microperforation; 3rd instance -CT: 1. findings compatible with acute diverticulitis and perforation of descending colon. Recommend endoscopy following resolution. 2. Mild cystitis vs underdistention. correlate with urinalysis -received cipro and ceftriaxone in ED; -will c/w with Zosyn 3.375mg Q6H and metronidazole 500mg Q8H -ID consulted, Dr. Viera, help appreciated -Morphine and Toradol for pain -zofran for nausea -surgical consult; Dr. Welch; appreciate recs -NPO -1L bolus followed by 150ml/Hr maintenance -WBC downtrending -VBG Lactate 1.5 -f/u blood cultures -f/u stool culture, fecal leukocytes, c dif, stool occult -cxray: mild venous congestion, right hilar prominence, heart size within normal limits Impaired Glucose Tolerance -HBA1C 6.2 -insulin sliding scale- low -accuchecks achs -hypoglycemia protocol -TSH: 1.19 -Lipid panel: Triglycerides-61, Cholesterol-136, LDL-81, HDL-31 Depression/Anxiety -c/w Modafanil Prophylaxis -SCDs -GI prophylaxis not indicated <Nagi Hernandez - Last Filed: 01/19/18 16:45> Objective - Vital Signs/Intake and Output Vital Signs (last 24 hours): Temp Pulse Resp BP Pulse Ox 99.3 F 79 20 142/78 96 01/19/18 15:00 01/19/18 15:00 01/19/18 15:00 01/19/18 15:00 01/19/18 15:00 Intake and Output: 01/19/18 01/19/18 06:59 18:59 Intake Total 2520 1440 Output Total 0 0 Balance 2520 1440 - Medications Medications: Current Medications Albuterol/Ipratropium (Duoneb 3 Mg/0.5 Mg (3 Ml) Ud) 3 ml INH RQ6 PRN PRN Reason: Shortness of Breath Dextrose (Dextrose 50% Inj) 0 ml IV STAT PRN; Protocol PRN Reason: Hypoglycemia Protocol Dextrose (Glutose 15) 0 gm PO ONCE PRN; Protocol PRN Reason: Hypoglycemia Protocol Glucagon (Glucagen Diagnostic Kit) 0 mg IM STAT PRN; Protocol PRN Reason: Hypoglycemia Protocol Sodium Chloride (Sodium Chloride 0.9%) 1,000 mls @ 150 mls/hr IV .Q6H40M [facility] Last Admin: 01/19/18 05:23 Dose: 150 mls/hr Metronidazole (Flagyl) 500 mg in 100 mls @ 100 mls/hr IVPB Q8 [facility] PRN Reason: Protocol Last Admin: 01/19/18 14:43 Dose: 100 mls/hr Piperacillin Sod/Tazobactam Sod (Zosyn 3.375 Gm Iv Premix) 3.375 gm in 50 mls @ 100 mls/hr IVPB Q6H [facility] PRN Reason: Protocol Last Admin: 01/19/18 12:43 Dose: 100 mls/hr Dextrose (Dextrose 5% In Water 1000 Ml) 1,000 mls @ 0 mls/hr IV .Q0M PRN; Protocol; Per Protocol PRN Reason: Hypoglycemia Protocol Insulin Aspart (Novolog) 0 unit SC ACHS [facility] PRN Reason: Protocol Last Admin: 01/19/18 11:54 Dose: Not Given Ketorolac Tromethamine (Toradol) 30 mg IVP Q6 PRN PRN Reason: Pain, moderate (4-7) Last Admin: 01/19/18 15:46 Dose: 30 mg Modafinil (Provigil) 100 mg PO DAILY [facility] Last Admin: 01/19/18 10:56 Dose: 100 mg Ondansetron HCl (Zofran Inj) 4 mg IVP Q6 PRN PRN Reason: Nausea/Vomiting Oxycodone HCl (Oxycodone Immediate Release Tab) 5 mg PO Q6 PRN PRN Reason: Pain, severe (8-10) Last Admin: 01/18/18 19:56 Dose: 5 mg Pneumococcal Polyvalent Vaccine (Pneumovax 23 Vaccine) 0.5 ml IM .ONCE ONE Stop: 01/20/18 10:01 - Labs Labs: 01/19/18 07:09 01/19/18 07:09 Attending/Attestation - Attestation I have personally seen and examined this patient.: Yes I have fully participated in the care of the patient.: Yes I have reviewed all pertinent clinical information, including history, physical exam and plan: Yes Notes (Text): Patient was 01/19/18 16:42 seen and examined by me His medical condition discussed with the patient Has diverticulitis with microperforation.Recurrent diverticulitis seen by surgery .Recommended Conservative management continue antibiotics as per ID d/w resident. I agree with the documentation of the resident's assessment and the plan
[2018-01-17 09:53] LABS: BASO # 0.1 K/uL (0.0-0.2); BASO % 0.6 % (0.0-2.0); LYMPH # 1.2 K/uL (1.0-4.3); LYMPH % 8.9 % (20.0-40.0); MEAN CELL VOLUME 89.8 fL (80.0-94.0); MEAN CORPUSCULAR HEMOGLOBIN 31.3 pg (27.0-31.0); MEAN CORPUSCULAR HGB CONC 34.9 g/dL (33.0-37.0); MEAN PLATELET VOLUME 8.3 fL (7.2-11.7); MONO # 1.2 K/uL (0.0-0.8); NEUT # 10.9 K/uL (1.8-7.0); NEUT % 81.5 % (50.0-75.0); PLATELET COUNT 172 K/uL (130-400); RBC 4.32 Mil/uL (4.40-5.90); RED CELL DISTRIBUTION WIDTH 12.9 % (11.5-14.5); WHITE BLOOD COUNT 13.3 K/uL (4.8-10.8)
[2018-01-17 10:05] LABS: HEMOGLOBIN 13.5 g/dL (12.0-18.0)
[2018-01-17 10:12] LABS: ALB/GLOB RATIO 0.9 (1.0-2.1); ALBUMIN 3.4 g/dL (3.5-5.0); ALT/SGPT 28 U/L (21-72); AST/SGOT 24 U/L (17-59); BLOOD UREA NITROGEN 14 mg/dL (9-20); CALCIUM 8.3 mg/dl (8.6-10.4); GFR AFRICAN-AMERICAN > 60; GFR NON-AFRICAN AMERICAN > 60
[2018-01-17 10:31] LABS: LYMPHOCYTE 5 % (20-40); MONOCYTE 15 % (0-10); NEUTROPHIL 80 % (50-75); PLATELET ESTIMATE NORMAL (NORMAL); TOTAL CELLS COUNTED 100
--- NOTE | 2018-01-17 14:36 | CP.PCM.CON ---
History of Present Illness - History of Present Illness History of Present Illness: dictated Past Patient History - Infectious Disease Hx of Infectious Diseases: None - Past Medical History & Family History Past Medical History?: Yes - Past Social History Smoking Status: Heavy Smoker > 10 Cigarettes Daily - CARDIAC Hx Hypercholesterolemia: Yes - PULMONARY Hx Asthma: Yes Hx Bronchitis: Yes - NEUROLOGICAL Hx Seizures: Yes (PT. NOT SURE ONLY ONCE "I THINK BECAUSE I ABBY'T EATEN") - HEENT Hx HEENT Problems: Yes Hx Cataracts: Yes (BILAT. - NO SURGERY YET) - ENDOCRINE/METABOLIC Hx Endocrine Disorders: Yes Hx Diabetes Mellitus Type 1: Yes - HEMATOLOGICAL/ONCOLOGICAL Hx Cancer: No - INTEGUMENTARY Hx Dermatological Problems: No - MUSCULOSKELETAL/RHEUMATOLOGICAL Hx Falls: No - GASTROINTESTINAL Hx Gastrointestinal Disorders: No - GENITOURINARY/GYNECOLOGICAL Hx Genitourinary Disorders: No - PSYCHIATRIC Hx Anxiety: Yes Hx Bipolar Disorder: Yes Hx Depression: Yes Hx Schizophrenia: Yes Hx Substance Use: Yes (marijuana) - SURGICAL HISTORY Hx Appendectomy: Yes - ANESTHESIA Hx Anesthesia: Yes Hx Anesthesia Reactions: No Hx Malignant Hyperthermia: No Meds Allergies/Adverse Reactions: Allergies Allergy/AdvReac Type Severity Reaction Status Date / Time No Known Allergies Allergy Verified 01/16/18 20:16 - Medications Medications: Current Medications Dextrose (Dextrose 50% Inj) 0 ml IV STAT PRN; Protocol PRN Reason: Hypoglycemia Protocol Dextrose (Glutose 15) 0 gm PO ONCE PRN; Protocol PRN Reason: Hypoglycemia Protocol Glucagon (Glucagen Diagnostic Kit) 0 mg IM STAT PRN; Protocol PRN Reason: Hypoglycemia Protocol Sodium Chloride (Sodium Chloride 0.9%) 1,000 mls @ 150 mls/hr IV .Q6H40M [facility] Last Admin: 01/17/18 11:43 Dose: 150 mls/hr Metronidazole (Flagyl) 500 mg in 100 mls @ 100 mls/hr IVPB Q8 ONELIA PRN Reason: Protocol Last Admin: 01/17/18 05:41 Dose: 100 mls/hr Piperacillin Sod/Tazobactam Sod (Zosyn 3.375 Gm Iv Premix) 3.375 gm in 50 mls @ 100 mls/hr IVPB Q6H ONELIA PRN Reason: Protocol Last Admin: 01/17/18 13:00 Dose: 100 mls/hr Dextrose (Dextrose 5% In Water 1000 Ml) 1,000 mls @ 0 mls/hr IV .Q0M PRN; Protocol; Per Protocol PRN Reason: Hypoglycemia Protocol Insulin Aspart (Novolog) 0 unit SC ACHS [facility] PRN Reason: Protocol Last Admin: 01/17/18 12:32 Dose: Not Given Ketorolac Tromethamine (Toradol) 30 mg IV Q6 PRN PRN Reason: Pain, moderate (4-7) Last Admin: 01/17/18 01:53 Dose: 30 mg Modafinil (Provigil) 100 mg PO DAILY [facility] Last Admin: 01/17/18 10:26 Dose: 100 mg Morphine Sulfate (Morphine) 2 mg IVP Q6H PRN PRN Reason: Pain, severe (8-10) Ondansetron HCl (Zofran Inj) 4 mg IVP Q6 PRN PRN Reason: Nausea/Vomiting Pneumococcal Polyvalent Vaccine (Pneumovax 23 Vaccine) 0.5 ml IM .ONCE ONE Stop: 01/20/18 10:01 Results - Vital Signs Recent Vital Signs: Last Vital Signs Temp 98.8 F 01/17/18 08:24 Pulse 64 01/17/18 08:24 Resp 20 01/17/18 08:24 BP 127/70 01/17/18 08:24 Pulse Ox 99 01/17/18 08:24 - Labs Result Diagrams: 01/17/18 09:46 01/17/18 09:46 Labs: Laboratory Results - last 24 hr 01/16/18 01/16/18 01/16/18 20:49 20:49 21:43 WBC 14.2 H D RBC 5.23 Hgb 16.4 Hct 46.9 MCV 89.8 MCH 31.4 H MCHC 35.0 RDW 12.9 Plt Count 231 MPV 8.4 Neut % (Auto) 84.3 H Lymph % (Auto) 6.1 L Bollinger % (Auto) 9.1 Eos % (Auto) 0.1 Baso % (Auto) 0.4 Neut # (Auto) 12.0 H Lymph # (Auto) 0.9 L Bollinger # (Auto) 1.3 H Eos # (Auto) 0.0 Baso # (Auto) 0.1 Neutrophils % (Manual) 84 H Band Neutrophils % 1 Lymphocytes % (Manual) 5 L Monocytes % (Manual) 10 Platelet Estimate Normal RBC Morphology pO2 VBG pH VBG pCO2 VBG HCO3 VBG Total CO2 VBG O2 Sat (Calc) VBG Base Excess VBG Potassium Glucose Lactate Crit Value Called To Crit Value Called By Crit Value Read Back Blood Gas Notified Time Sodium 136 Potassium 4.1 Chloride 95 L Carbon Dioxide 28 Anion Gap 17 BUN 13 Creatinine 1.0 Est GFR ( Amer) > 60 Est GFR (Non-Af Amer) > 60 POC Glucose (mg/dL) Random Glucose 130 H Hemoglobin A1c Calcium 9.6 Total Bilirubin 1.2 AST 33 ALT 30 Alkaline Phosphatase 58 Troponin I < 0.0120 Total Protein 8.9 H Albumin 4.2 Globulin 4.7 H Albumin/Globulin Ratio 0.9 L Triglycerides Cholesterol LDL Cholesterol Direct HDL Cholesterol Lipase 63 TSH 3rd Generation Venous Blood Potassium Urine Color Yellow Urine Clarity Clear Urine pH 6.0 Ur Specific Mcallen 1.024 Urine Protein Negative Urine Glucose (UA) Normal Urine Ketones Negative Urine Blood Negative Urine Nitrate Negative Urine Bilirubin Negative Urine Urobilinogen 4.0 Ur Leukocyte Esterase Neg Urine WBC (Auto) 1 Urine RBC (Auto) 2 Urine Opiates Screen Urine Methadone Screen Ur Barbiturates Screen Ur Phencyclidine Scrn Ur Amphetamines Screen U Benzodiazepines Scrn U Oth Cocaine Metabols U Cannabinoids Screen Blood Type Antibody Screen 01/17/18 01/17/18 01/17/18 00:03 00:28 00:37 WBC RBC Hgb Hct MCV MCH MCHC RDW Plt Count MPV Neut % (Auto) Lymph % (Auto) Bollinger % (Auto) Eos % (Auto) Baso % (Auto) Neut # (Auto) Lymph # (Auto) Bollinger # (Auto) Eos # (Auto) Baso # (Auto) Neutrophils % (Manual) Band Neutrophils % Lymphocytes % (Manual) Monocytes % (Manual) Platelet Estimate RBC Morphology pO2 43 VBG pH 7.40 VBG pCO2 40 VBG HCO3 24.4 VBG Total CO2 26.0 VBG O2 Sat (Calc) 84.7 H VBG Base Excess 0.0 VBG Potassium 3.8 Glucose 112 H Lactate 1.5 Crit Value Called To Dr cruz Crit Value Called By Elizabeth aleajndre rt Crit Value Read Back Y Blood Gas Notified Time 122 Sodium 136.0 Potassium Chloride 103.0 Carbon Dioxide Anion Gap BUN Creatinine Est GFR ( Amer) Est GFR (Non-Af Amer) POC Glucose (mg/dL) 135 H Random Glucose Hemoglobin A1c Calcium Total Bilirubin AST ALT Alkaline Phosphatase Troponin I Total Protein Albumin Globulin Albumin/Globulin Ratio Triglycerides Cholesterol LDL Cholesterol Direct HDL Cholesterol Lipase TSH 3rd Generation Venous Blood Potassium 3.8 Urine Color Urine Clarity Urine pH Ur Specific Mcallen Urine Protein Urine Glucose (UA) Urine Ketones Urine Blood Urine Nitrate Urine Bilirubin Urine Urobilinogen Ur Leukocyte Esterase Urine WBC (Auto) Urine RBC (Auto) Urine Opiates Screen Negative Urine Methadone Screen Negative Ur Barbiturates Screen Negative Ur Phencyclidine Scrn Negative Ur Amphetamines Screen Negative U Benzodiazepines Scrn Negative U Oth Cocaine Metabols Negative U Cannabinoids Screen Positive H Blood Type Antibody Screen 01/17/18 01/17/18 01/17/18 00:41 07:20 07:20 WBC RBC Hgb Hct MCV MCH MCHC RDW Plt Count MPV Neut % (Auto) Lymph % (Auto) Bollinger % (Auto) Eos % (Auto) Baso % (Auto) Neut # (Auto) Lymph # (Auto) Bollinger # (Auto) Eos # (Auto) Baso # (Auto) Neutrophils % (Manual) Band Neutrophils % Lymphocytes % (Manual) Monocytes % (Manual) Platelet Estimate RBC Morphology pO2 VBG pH VBG pCO2 VBG HCO3 VBG Total CO2 VBG O2 Sat (Calc) VBG Base Excess VBG Potassium Glucose Lactate Crit Value Called To Crit Value Called By Crit Value Read Back Blood Gas Notified Time Sodium Potassium Chloride Carbon Dioxide Anion Gap BUN Creatinine Est GFR ( Amer) Est GFR (Non-Af Amer) POC Glucose (mg/dL) Random Glucose Hemoglobin A1c 6.2 Calcium Total Bilirubin AST ALT Alkaline Phosphatase Troponin I Total Protein Albumin Globulin Albumin/Globulin Ratio Triglycerides 61 D Cholesterol 136 LDL Cholesterol Direct 81 HDL Cholesterol 31 Lipase TSH 3rd Generation 1.19 Venous Blood Potassium Urine Color Urine Clarity Urine pH Ur Specific Mcallen Urine Protein Urine Glucose (UA) Urine Ketones Urine Blood Urine Nitrate Urine Bilirubin Urine Urobilinogen Ur Leukocyte Esterase Urine WBC (Auto) Urine RBC (Auto) Urine Opiates Screen Urine Methadone Screen Ur Barbiturates Screen Ur Phencyclidine Scrn Ur Amphetamines Screen U Benzodiazepines Scrn U Oth Cocaine Metabols U Cannabinoids Screen Blood Type A NEGATIVE Antibody Screen Negative 01/17/18 01/17/18 01/17/18 07:22 09:46 09:46 WBC 13.3 H RBC 4.32 L Hgb 13.5 D Hct 38.8 MCV 89.8 MCH 31.3 H MCHC 34.9 RDW 12.9 Plt Count 172 MPV 8.3 Neut % (Auto) 81.5 H Lymph % (Auto) 8.9 L Bollinger % (Auto) 9.0 Eos % (Auto) 0.0 Baso % (Auto) 0.6 Neut # (Auto) 10.9 H Lymph # (Auto) 1.2 Bollinger # (Auto) 1.2 H Eos # (Auto) 0.0 Baso # (Auto) 0.1 Neutrophils % (Manual) 80 H Band Neutrophils % Lymphocytes % (Manual) 5 L Monocytes % (Manual) 15 H Platelet Estimate Normal RBC Morphology Normal pO2 VBG pH VBG pCO2 VBG HCO3 VBG Total CO2 VBG O2 Sat (Calc) VBG Base Excess VBG Potassium Glucose Lactate Crit Value Called To Crit Value Called By Crit Value Read Back Blood Gas Notified Time Sodium 137 Potassium 3.8 Chloride 102 Carbon Dioxide 24 Anion Gap 14 BUN 14 Creatinine 1.3 Est GFR ( Amer) > 60 Est GFR (Non-Af Amer) > 60 POC Glucose (mg/dL) 94 Random Glucose 117 H Hemoglobin A1c Calcium 8.3 L Total Bilirubin 1.6 H AST 24 ALT 28 Alkaline Phosphatase 43 Troponin I Total Protein 7.1 Albumin 3.4 L Globulin 3.6 Albumin/Globulin Ratio 0.9 L Triglycerides Cholesterol LDL Cholesterol Direct HDL Cholesterol Lipase TSH 3rd Generation Venous Blood Potassium Urine Color Urine Clarity Urine pH Ur Specific Mcallen Urine Protein Urine Glucose (UA) Urine Ketones Urine Blood Urine Nitrate Urine Bilirubin Urine Urobilinogen Ur Leukocyte Esterase Urine WBC (Auto) Urine RBC (Auto) Urine Opiates Screen Urine Methadone Screen Ur Barbiturates Screen Ur Phencyclidine Scrn Ur Amphetamines Screen U Benzodiazepines Scrn U Oth Cocaine Metabols U Cannabinoids Screen Blood Type Antibody Screen 01/17/18 11:27 WBC RBC Hgb Hct MCV MCH MCHC RDW Plt Count MPV Neut % (Auto) Lymph % (Auto) Bollinger % (Auto) Eos % (Auto) Baso % (Auto) Neut # (Auto) Lymph # (Auto) Bollinger # (Auto) Eos # (Auto) Baso # (Auto) Neutrophils % (Manual) Band Neutrophils % Lymphocytes % (Manual) Monocytes % (Manual) Platelet Estimate RBC Morphology pO2 VBG pH VBG pCO2 VBG HCO3 VBG Total CO2 VBG O2 Sat (Calc) VBG Base Excess VBG Potassium Glucose Lactate Crit Value Called To Crit Value Called By Crit Value Read Back Blood Gas Notified Time Sodium Potassium Chloride Carbon Dioxide Anion Gap BUN Creatinine Est GFR ( Amer) Est GFR (Non-Af Amer) POC Glucose (mg/dL) 113 H Random Glucose Hemoglobin A1c Calcium Total Bilirubin AST ALT Alkaline Phosphatase Troponin I Total Protein Albumin Globulin Albumin/Globulin Ratio Triglycerides Cholesterol LDL Cholesterol Direct HDL Cholesterol Lipase TSH 3rd Generation Venous Blood Potassium Urine Color Urine Clarity Urine pH Ur Specific Mcallen Urine Protein Urine Glucose (UA) Urine Ketones Urine Blood Urine Nitrate Urine Bilirubin Urine Urobilinogen Ur Leukocyte Esterase Urine WBC (Auto) Urine RBC (Auto) Urine Opiates Screen Urine Methadone Screen Ur Barbiturates Screen Ur Phencyclidine Scrn Ur Amphetamines Screen U Benzodiazepines Scrn U Oth Cocaine Metabols U Cannabinoids Screen Blood Type Antibody Screen
--- NOTE | 2018-01-17 18:17 | CARD ---
APPROVED REPORT EKG Measurement Heart [id number] <Conclusion> Normal sinus rhythm Normal ECG
[2018-01-18] MEDS: Piperacill/Tazo 3.375gm in Dex 3.375 GM/50 ML BAG IVPB SCH ×4 (00:20→19:53)
[2018-01-18] MEDS: Sodium Chloride 0.9% 1,000 ML IV SCH ×3 (02:58→18:00)
[2018-01-18] MEDS: metroNIDAZOLE IV 500 mg/100 ml 500 MG/100 ML BAG IVPB SCH ×3 (06:00→21:35)
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
[2018-01-18 06:35] LABS: BASO # 0.1 K/uL (0.0-0.2); BASO % 0.8 % (0.0-2.0); EOS % 0.3 % (0.0-4.0); HEMOGLOBIN 13.2 g/dL (12.0-18.0); LYMPH # 1.6 K/uL (1.0-4.3); LYMPH % 13.9 % (20.0-40.0); MEAN CORPUSCULAR HEMOGLOBIN 31.3 pg (27.0-31.0); MEAN CORPUSCULAR HGB CONC 34.8 g/dL (33.0-37.0); MEAN PLATELET VOLUME 8.3 fL (7.2-11.7); MONO % 9.2 % (0.0-10.0); NEUT # 8.6 K/uL (1.8-7.0); NEUT % 75.8 % (50.0-75.0); RBC 4.2 Mil/uL (4.40-5.90); WHITE BLOOD COUNT 11.4 K/uL (4.8-10.8)
[2018-01-18 06:55] LABS: ALB/GLOB RATIO 0.9 (1.0-2.1); ALBUMIN 3.5 g/dL (3.5-5.0); ALT/SGPT 17 U/L (21-72); AST/SGOT 20 U/L (17-59); BLOOD UREA NITROGEN 13 mg/dL (9-20); CALCIUM 8.6 mg/dl (8.6-10.4); GFR AFRICAN-AMERICAN > 60; GFR NON-AFRICAN AMERICAN > 60
--- NOTE | 2018-01-18 08:13 | CP.PCM.PN ---
Subjective - Date & Time of Evaluation Date of Evaluation: 01/18/18 Time of Evaluation: 08:10 - Subjective Subjective: General Surgery - Dr. Welch Pt S&E. XANDER. Pt continues to have lower abdominal/pelvic pain but states its improved from yesterday. He was able to get OOB and ambulate yesterday. He remains NPO. No N/V, F/C. Objective - Vital Signs/Intake and Output Vital Signs (last 24 hours): Temp Pulse Resp BP Pulse Ox 99.6 F 77 20 107/63 95 01/18/18 00:00 01/18/18 00:00 01/18/18 00:00 01/18/18 00:00 01/18/18 00:00 Intake and Output: 01/18/18 01/18/18 06:59 18:59 Intake Total 1200 1200 Output Total 0 Balance 1200 1200 - Medications Medications: Current Medications Dextrose (Dextrose 50% Inj) 0 ml IV STAT PRN; Protocol PRN Reason: Hypoglycemia Protocol Dextrose (Glutose 15) 0 gm PO ONCE PRN; Protocol PRN Reason: Hypoglycemia Protocol Glucagon (Glucagen Diagnostic Kit) 0 mg IM STAT PRN; Protocol PRN Reason: Hypoglycemia Protocol Sodium Chloride (Sodium Chloride 0.9%) 1,000 mls @ 150 mls/hr IV .Q6H40M [facility] Last Admin: 01/18/18 07:07 Dose: 150 mls/hr Metronidazole (Flagyl) 500 mg in 100 mls @ 100 mls/hr IVPB Q8 ONELIA PRN Reason: Protocol Last Admin: 01/18/18 06:00 Dose: 100 mls/hr Piperacillin Sod/Tazobactam Sod (Zosyn 3.375 Gm Iv Premix) 3.375 gm in 50 mls @ 100 mls/hr IVPB Q6H ONELIA PRN Reason: Protocol Last Admin: 01/18/18 07:10 Dose: 100 mls/hr Dextrose (Dextrose 5% In Water 1000 Ml) 1,000 mls @ 0 mls/hr IV .Q0M PRN; Protocol; Per Protocol PRN Reason: Hypoglycemia Protocol Insulin Aspart (Novolog) 0 unit SC ACHS [facility] PRN Reason: Protocol Last Admin: 01/17/18 21:49 Dose: Not Given Modafinil (Provigil) 100 mg PO DAILY [facility] Last Admin: 01/17/18 10:26 Dose: 100 mg Morphine Sulfate (Morphine) 2 mg IVP Q6H PRN PRN Reason: Pain, severe (8-10) Ondansetron HCl (Zofran Inj) 4 mg IVP Q6 PRN PRN Reason: Nausea/Vomiting Pneumococcal Polyvalent Vaccine (Pneumovax 23 Vaccine) 0.5 ml IM .ONCE ONE Stop: 01/20/18 10:01 - Labs Labs: 01/18/18 06:27 01/18/18 06:27 - Constitutional Appears: No Acute Distress - Head Exam Head Exam: ATRAUMATIC, NORMAL INSPECTION, NORMOCEPHALIC - Eye Exam Eye Exam: Normal appearance - Respiratory Exam Respiratory Exam: NORMAL BREATHING PATTERN. absent: Respiratory Distress - GI/Abdominal Exam GI & Abdominal Exam: Guarding, Soft, Tenderness. absent: Distended, Firm, Rigid - Neurological Exam Neurological Exam: Alert, Oriented x3 - Psychiatric Exam Psychiatric exam: Normal Affect, Normal Mood - Skin Skin Exam: Dry, Intact Assessment and Plan - Assessment and Plan (Free Text) Assessment: 37yo M w/ acute diverticulitis, recurrent -Continue NPO, IVF, IV Abx -Pain control prn -Encourage OOB/Ambulate -Will monitor and possibly start clear liquids tonight or tomorrow GRAYSON Welch
[2018-01-18] MEDS: (Novolog) Insulin Aspart, Recombinant 100 u/ml 10 ml vial SC SCH ×4 (08:18→21:37)
--- NOTE | 2018-01-18 13:47 | CP.PCM.PN ---
<Jordyn Soto - Last Filed: 01/18/18 13:42> Subjective - Date & Time of Evaluation Date of Evaluation: 01/18/18 Time of Evaluation: 07:00 - Subjective Subjective: PGY1- Medicine Note Patient seen and examined and in no acute distress. Patient says he still has a lot of abdominal pain which he rates 7/10, but says it is significantly better today compared to yesterday. Patient is able to walk around today and sit up in the bed. Patient says he is having a lot of gas, and had a small amount of diarrhea last night and this morning. Patient denies any chest pain, shortness of breath, nausea, or vomiting. Objective - Vital Signs/Intake and Output Vital Signs (last 24 hours): Temp Pulse Resp BP Pulse Ox 99.0 F 73 20 124/65 97 01/18/18 08:00 01/18/18 08:00 01/18/18 08:00 01/18/18 08:00 01/18/18 08:00 Intake and Output: 01/18/18 01/18/18 06:59 18:59 Intake Total 1200 1200 Output Total 0 Balance 1200 1200 - Medications Medications: Current Medications Dextrose (Dextrose 50% Inj) 0 ml IV STAT PRN; Protocol PRN Reason: Hypoglycemia Protocol Dextrose (Glutose 15) 0 gm PO ONCE PRN; Protocol PRN Reason: Hypoglycemia Protocol Glucagon (Glucagen Diagnostic Kit) 0 mg IM STAT PRN; Protocol PRN Reason: Hypoglycemia Protocol Sodium Chloride (Sodium Chloride 0.9%) 1,000 mls @ 150 mls/hr IV .Q6H40M [facility] Last Admin: 01/18/18 07:07 Dose: 150 mls/hr Metronidazole (Flagyl) 500 mg in 100 mls @ 100 mls/hr IVPB Q8 [facility] PRN Reason: Protocol Last Admin: 01/18/18 06:00 Dose: 100 mls/hr Piperacillin Sod/Tazobactam Sod (Zosyn 3.375 Gm Iv Premix) 3.375 gm in 50 mls @ 100 mls/hr IVPB Q6H [facility] PRN Reason: Protocol Last Admin: 01/18/18 07:10 Dose: 100 mls/hr Dextrose (Dextrose 5% In Water 1000 Ml) 1,000 mls @ 0 mls/hr IV .Q0M PRN; Protocol; Per Protocol PRN Reason: Hypoglycemia Protocol Insulin Aspart (Novolog) 0 unit SC ACHS [facility] PRN Reason: Protocol Last Admin: 01/18/18 11:56 Dose: Not Given Modafinil (Provigil) 100 mg PO DAILY [facility] Last Admin: 01/18/18 11:16 Dose: 100 mg Morphine Sulfate (Morphine) 2 mg IVP Q6H PRN PRN Reason: Pain, severe (8-10) Ondansetron HCl (Zofran Inj) 4 mg IVP Q6 PRN PRN Reason: Nausea/Vomiting Pneumococcal Polyvalent Vaccine (Pneumovax 23 Vaccine) 0.5 ml IM .ONCE ONE Stop: 01/20/18 10:01 - Labs Labs: 01/18/18 06:27 01/18/18 06:27 - Additional Findings Additional findings: - Constitutional Appears: Non-toxic, No Acute Distress - Head Exam Head Exam: ATRAUMATIC, NORMAL INSPECTION, NORMOCEPHALIC - Eye Exam Eye Exam: EOMI, Normal appearance Pupil Exam: PERRL - ENT Exam ENT Exam: Mucous Membranes Moist - Respiratory Exam Respiratory Exam: Clear to Ausculation Bilateral, NORMAL BREATHING PATTERN. absent: Rales, Rhonchi, Wheezes, Respiratory Distress - Cardiovascular Exam Cardiovascular Exam: REGULAR RHYTHM, RRR, +S1, +S2. absent: Murmur - GI/Abdominal Exam GI & Abdominal Exam: Guarding, Tenderness, Normal Bowel Sounds. absent: Firm - Extremities Exam Extremities Exam: Full ROM, Normal Inspection. absent: Pedal Edema - Neurological Exam Neurological Exam: Alert, Awake, Oriented x3 - Psychiatric Exam Psychiatric exam: Normal Affect, Normal Mood - Skin Skin Exam: Intact, Normal Color, Warm Assessment and Plan - Assessment and Plan (Free Text) Assessment: Severe Recurrent Diverticulitis with Microperforation; 3rd instance -CT: 1. findings compatible with acute diverticulitis and perforation of descending colon. Recommend endoscopy following resolution. 2. Mild cystitis vs underdistention. correlate with urinalysis -received cipro and ceftriaxone in ED; -will c/w with Zosyn 3.375mg Q6H and metronidazole 500mg Q8H -ID consulted, Dr. Viera, help appreciated -Morphine and Toradol for pain -zofran for nausea -surgical consult; Dr. Arago; appreciate recs -NPO -1L bolus followed by 150ml/Hr maintenance -WBC downtrending -VBG Lactate 1.5 -blood cultures negative for 24 hours -f/u stool culture, fecal leukocytes, c dif -stool occult negative -cxray: mild venous congestion, right hilar prominence, heart size within normal limits Impaired Glucose Tolerance -HBA1C 6.2 -insulin sliding scale- low -accuchecks achs -hypoglycemia protocol -TSH: 1.19 -Lipid panel: Triglycerides-61, Cholesterol-136, LDL-81, HDL-31 Depression/Anxiety -c/w Modafanil Prophylaxis -SCDs -GI prophylaxis not indicated -NPO, surgery may start liquids if pain better tolerated tonight <Nagi Hernandez - Last Filed: 01/19/18 16:47> Objective - Vital Signs/Intake and Output Vital Signs (last 24 hours): Temp Pulse Resp BP Pulse Ox 99.3 F 79 20 142/78 96 01/19/18 15:00 01/19/18 15:00 01/19/18 15:00 01/19/18 15:00 01/19/18 15:00 Intake and Output: 01/19/18 01/19/18 06:59 18:59 Intake Total 2520 1440 Output Total 0 0 Balance 2520 1440 - Medications Medications: Current Medications Albuterol/Ipratropium (Duoneb 3 Mg/0.5 Mg (3 Ml) Ud) 3 ml INH RQ6 PRN PRN Reason: Shortness of Breath Dextrose (Dextrose 50% Inj) 0 ml IV STAT PRN; Protocol PRN Reason: Hypoglycemia Protocol Dextrose (Glutose 15) 0 gm PO ONCE PRN; Protocol PRN Reason: Hypoglycemia Protocol Glucagon (Glucagen Diagnostic Kit) 0 mg IM STAT PRN; Protocol PRN Reason: Hypoglycemia Protocol Sodium Chloride (Sodium Chloride 0.9%) 1,000 mls @ 150 mls/hr IV .Q6H40M [facility] Last Admin: 01/19/18 05:23 Dose: 150 mls/hr Metronidazole (Flagyl) 500 mg in 100 mls @ 100 mls/hr IVPB Q8 [facility] PRN Reason: Protocol Last Admin: 01/19/18 14:43 Dose: 100 mls/hr Piperacillin Sod/Tazobactam Sod (Zosyn 3.375 Gm Iv Premix) 3.375 gm in 50 mls @ 100 mls/hr IVPB Q6H [facility] PRN Reason: Protocol Last Admin: 01/19/18 12:43 Dose: 100 mls/hr Dextrose (Dextrose 5% In Water 1000 Ml) 1,000 mls @ 0 mls/hr IV .Q0M PRN; Protocol; Per Protocol PRN Reason: Hypoglycemia Protocol Insulin Aspart (Novolog) 0 unit SC ACHS [facility] PRN Reason: Protocol Last Admin: 01/19/18 11:54 Dose: Not Given Ketorolac Tromethamine (Toradol) 30 mg IVP Q6 PRN PRN Reason: Pain, moderate (4-7) Last Admin: 01/19/18 15:46 Dose: 30 mg Modafinil (Provigil) 100 mg PO DAILY [facility] Last Admin: 01/19/18 10:56 Dose: 100 mg Ondansetron HCl (Zofran Inj) 4 mg IVP Q6 PRN PRN Reason: Nausea/Vomiting Oxycodone HCl (Oxycodone Immediate Release Tab) 5 mg PO Q6 PRN PRN Reason: Pain, severe (8-10) Last Admin: 01/18/18 19:56 Dose: 5 mg Pneumococcal Polyvalent Vaccine (Pneumovax 23 Vaccine) 0.5 ml IM .ONCE ONE Stop: 01/20/18 10:01 - Labs Labs: 01/19/18 07:09 01/19/18 07:09 Attending/Attestation - Attestation I have personally seen and examined this patient.: Yes I have fully participated in the care of the patient.: Yes I have reviewed all pertinent clinical information, including history, physical exam and plan: Yes Notes (Text): seen and examined by me,feeling better,pain is improving we will follow with surgery.patient wants to drink water Has diverticulitis with microperforation.Recurrent diverticulitis seen by surgery .Recommended Conservative management continue antibiotics as per ID d/w resident. I agree with the documentation of the resident's assessment and the plan
[2018-01-18 14:32] LABS: FECAL LEUKOCYTES NEGATIVE (NEGATIVE)
--- NOTE | 2018-01-18 14:56 | CP.PCM.PN ---
Subjective - Date & Time of Evaluation Date of Evaluation: 01/18/18 Time of Evaluation: 02:00 - Subjective Subjective: dictated Objective - Vital Signs/Intake and Output Vital Signs (last 24 hours): Temp Pulse Resp BP Pulse Ox 99.0 F 73 20 124/65 97 01/18/18 08:00 01/18/18 08:00 01/18/18 08:00 01/18/18 08:00 01/18/18 08:00 Intake and Output: 01/18/18 01/18/18 06:59 18:59 Intake Total 1200 2450 Output Total 0 Balance 1200 2450 - Medications Medications: Current Medications Dextrose (Dextrose 50% Inj) 0 ml IV STAT PRN; Protocol PRN Reason: Hypoglycemia Protocol Dextrose (Glutose 15) 0 gm PO ONCE PRN; Protocol PRN Reason: Hypoglycemia Protocol Glucagon (Glucagen Diagnostic Kit) 0 mg IM STAT PRN; Protocol PRN Reason: Hypoglycemia Protocol Sodium Chloride (Sodium Chloride 0.9%) 1,000 mls @ 150 mls/hr IV .Q6H40M [facility] Last Admin: 01/18/18 07:07 Dose: 150 mls/hr Metronidazole (Flagyl) 500 mg in 100 mls @ 100 mls/hr IVPB Q8 [facility] PRN Reason: Protocol Last Admin: 01/18/18 13:51 Dose: 100 mls/hr Piperacillin Sod/Tazobactam Sod (Zosyn 3.375 Gm Iv Premix) 3.375 gm in 50 mls @ 100 mls/hr IVPB Q6H [facility] PRN Reason: Protocol Last Admin: 01/18/18 13:51 Dose: 100 mls/hr Dextrose (Dextrose 5% In Water 1000 Ml) 1,000 mls @ 0 mls/hr IV .Q0M PRN; Protocol; Per Protocol PRN Reason: Hypoglycemia Protocol Insulin Aspart (Novolog) 0 unit SC ACHS [facility] PRN Reason: Protocol Last Admin: 01/18/18 11:56 Dose: Not Given Modafinil (Provigil) 100 mg PO DAILY [facility] Last Admin: 01/18/18 11:16 Dose: 100 mg Morphine Sulfate (Morphine) 2 mg IVP Q6H PRN PRN Reason: Pain, severe (8-10) Ondansetron HCl (Zofran Inj) 4 mg IVP Q6 PRN PRN Reason: Nausea/Vomiting Pneumococcal Polyvalent Vaccine (Pneumovax 23 Vaccine) 0.5 ml IM .ONCE ONE Stop: 01/20/18 10:01 - Labs Labs: 01/18/18 06:27 01/18/18 06:27
[2018-01-18] MEDS ORDERED: oxyCODONE 5 mg Immediate Release Tab PO PRN (18:36)
[2018-01-18 19:01] LABS: C DIFF TOXIN A B NEGATIVE (NEGATIVE)
[2018-01-19] MEDS: Piperacill/Tazo 3.375gm in Dex 3.375 GM/50 ML BAG IVPB SCH ×4 (00:08→19:00)
[2018-01-19] MEDS: metroNIDAZOLE IV 500 mg/100 ml 500 MG/100 ML BAG IVPB SCH ×3 (05:22→22:00)
[2018-01-19] MEDS: Sodium Chloride 0.9% 1,000 ML IV SCH ×2 (05:23→18:55)
[2018-01-19 07:29] LABS: BASO % 0.3 % (0.0-2.0); EOS # 0.1 K/uL (0.0-0.7); EOS % 0.6 % (0.0-4.0); HEMOGLOBIN 12.4 g/dL (12.0-18.0); LYMPH # 0.9 K/uL (1.0-4.3); LYMPH % 8.7 % (20.0-40.0); MEAN CORPUSCULAR HEMOGLOBIN 31.2 pg (27.0-31.0); MEAN CORPUSCULAR HGB CONC 34.6 g/dL (33.0-37.0); MEAN PLATELET VOLUME 8.4 fL (7.2-11.7); MONO # 1.2 K/uL (0.0-0.8); MONO % 10.8 % (0.0-10.0); NEUT # 8.7 K/uL (1.8-7.0); NEUT % 79.6 % (50.0-75.0); PLATELET COUNT 172 K/uL (130-400); RBC 3.97 Mil/uL (4.40-5.90); RED CELL DISTRIBUTION WIDTH 12.2 % (11.5-14.5); WHITE BLOOD COUNT 10.9 K/uL (4.8-10.8)
--- NOTE | 2018-01-19 07:31 | PN ---
DATE: INFECTIOUS DISEASE FOLLOW UP SUBJECTIVE: The patient is awake and alert. He is still n.p.o. He still has lower abdominal pain. He is complaining of pain in the right side and he is putting his hand to the belly, but he has not taken any pain medication. He denies needing anything as he just quit smoking . Denies any nausea and vomiting. Does have abdominal pain, but is mostly on the right side of his abdomen. PHYSICAL EXAMINATION: VITAL SIGNS: T-max is 99.6, pulse of 73, blood pressure 124/65 and respirations are 20. HEENT: Head is atraumatic and normocephalic. GENERAL: He is alert and awake. Pupils are reacting to light. NECK: Supple. JVP is flat. LUNGS: Clear. No cackles or rales present. HEART: S1 and S2 is regular. ABDOMEN: Has tenderness and he has little bit of guarding, but is not rigid. Bowel sounds are present. EXTREMITIES: Have no edema. LABORATORY DATA: Labs are noted. Labs show white count is 11.4, hemoglobin is 13.2, hematocrit 35.8, platelet count is 166. Sodium is 145, potassium is 4, chloride 105, CO2 is 24, BUN is 13, creatinine is 1.1. Micro, the blood cultures have been negative 2 sets. ASSESSMENT AND PLAN: He did come in with acute diverticulitis with perforation, so he is following conservatively and he remains on Zosyn and Flagyl and he is on pain meds. He is on Provigil and IV fluids and will follow with the Surgery whatever their plans are. He does have previous history of and diabetic. Kia Viera MD
--- NOTE | 2018-01-19 07:50 | CP.PCM.PN ---
<Jordyn Soto - Last Filed: 01/19/18 09:45> Subjective - Date & Time of Evaluation Date of Evaluation: 01/19/18 Time of Evaluation: 07:00 - Subjective Subjective: PGY1- Medicine Note Patient seen and examined at bedside and in no acute distress. Patient says he started clear liquids for dinner and felt okay. Patient woke up at 4am with severe right sided abdominal pain and had 1 episode of diarrhea. Patient says he received pain medication which helped resolve the pain. Currently patient rates his pain 6/10. Patient is breathing heavy but says this is typical for him and that he does not feel short of breath. He says he has been diagnosed with asthma in the past, but hasn't used an inhaler since he was 13. Patient says he knows it is due to his smoking which he is now trying to quit. Patient denies any chest pain, nausea, or vomiting. Objective - Vital Signs/Intake and Output Vital Signs (last 24 hours): Temp Pulse Resp BP Pulse Ox 98.1 F 72 20 119/73 98 01/19/18 00:00 01/19/18 00:00 01/19/18 00:00 01/19/18 00:00 01/19/18 00:00 Intake and Output: 01/19/18 01/19/18 06:59 18:59 Intake Total 2520 Output Total 0 Balance 2520 - Medications Medications: Current Medications Dextrose (Dextrose 50% Inj) 0 ml IV STAT PRN; Protocol PRN Reason: Hypoglycemia Protocol Dextrose (Glutose 15) 0 gm PO ONCE PRN; Protocol PRN Reason: Hypoglycemia Protocol Glucagon (Glucagen Diagnostic Kit) 0 mg IM STAT PRN; Protocol PRN Reason: Hypoglycemia Protocol Sodium Chloride (Sodium Chloride 0.9%) 1,000 mls @ 150 mls/hr IV .Q6H40M [facility] Last Admin: 01/19/18 05:23 Dose: 150 mls/hr Metronidazole (Flagyl) 500 mg in 100 mls @ 100 mls/hr IVPB Q8 [facility] PRN Reason: Protocol Last Admin: 01/19/18 05:22 Dose: 100 mls/hr Piperacillin Sod/Tazobactam Sod (Zosyn 3.375 Gm Iv Premix) 3.375 gm in 50 mls @ 100 mls/hr IVPB Q6H [facility] PRN Reason: Protocol Last Admin: 01/19/18 06:30 Dose: 100 mls/hr Dextrose (Dextrose 5% In Water 1000 Ml) 1,000 mls @ 0 mls/hr IV .Q0M PRN; Protocol; Per Protocol PRN Reason: Hypoglycemia Protocol Insulin Aspart (Novolog) 0 unit SC ACHS [facility] PRN Reason: Protocol Last Admin: 01/18/18 21:37 Dose: Not Given Ketorolac Tromethamine (Toradol) 30 mg IVP Q6 PRN PRN Reason: Pain, moderate (4-7) Last Admin: 01/19/18 04:36 Dose: 30 mg Modafinil (Provigil) 100 mg PO DAILY [facility] Last Admin: 01/18/18 11:16 Dose: 100 mg Ondansetron HCl (Zofran Inj) 4 mg IVP Q6 PRN PRN Reason: Nausea/Vomiting Oxycodone HCl (Oxycodone Immediate Release Tab) 5 mg PO Q6 PRN PRN Reason: Pain, severe (8-10) Last Admin: 01/18/18 19:56 Dose: 5 mg Pneumococcal Polyvalent Vaccine (Pneumovax 23 Vaccine) 0.5 ml IM .ONCE ONE Stop: 01/20/18 10:01 - Labs Labs: 01/19/18 07:09 01/18/18 06:27 - Additional Findings Additional findings: - Constitutional Appears: Non-toxic, No Acute Distress - Head Exam Head Exam: ATRAUMATIC, NORMAL INSPECTION, NORMOCEPHALIC - Eye Exam Eye Exam: EOMI, Normal appearance Pupil Exam: PERRL - ENT Exam ENT Exam: Mucous Membranes Moist - Respiratory Exam Respiratory Exam: Right sided wheezing in upper and lower lung lobes, NORMAL BREATHING PATTERN. absent: Rales, Rhonchi, Respiratory Distress - Cardiovascular Exam Cardiovascular Exam: REGULAR RHYTHM, RRR, +S1, +S2. absent: Murmur - GI/Abdominal Exam GI & Abdominal Exam: Guarding, Tenderness, Normal Bowel Sounds. absent: Firm - Extremities Exam Extremities Exam: Full ROM, Normal Inspection. absent: Pedal Edema - Neurological Exam Neurological Exam: Alert, Awake, Oriented x3 - Psychiatric Exam Psychiatric exam: Normal Affect, Normal Mood - Skin Skin Exam: Intact, Normal Color, Warm Assessment and Plan - Assessment and Plan (Free Text) Assessment: Severe Recurrent Diverticulitis with Microperforation; 3rd instance -CT: 1. findings compatible with acute diverticulitis and perforation of descending colon. Recommend endoscopy following resolution. 2. Mild cystitis vs underdistention. correlate with urinalysis -received cipro and ceftriaxone in ED; -will c/w with Zosyn 3.375mg Q6H and metronidazole 500mg Q8H -ID consulted, Dr. Viera, help appreciated -Morphine and Toradol for pain -zofran for nausea -surgical consult; Dr. Welch; appreciate recs -NPO -1L bolus followed by 150ml/Hr maintenance -WBC downtrending -VBG Lactate 1.5 -blood cultures negative for 24 hours -c dif negative -stool occult negative -fecal leukocytes- negative -cxray: mild venous congestion, right hilar prominence, heart size within normal limits Impaired Glucose Tolerance -HBA1C 6.2 -insulin sliding scale- low -accuchecks achs -hypoglycemia protocol -TSH: 1.19 -Lipid panel: Triglycerides-61, Cholesterol-136, LDL-81, HDL-31 Depression/Anxiety -c/w Modafanil Hx of Asthma -duonebs q6h prn Prophylaxis -SCDs -GI prophylaxis not indicated -CLD <Nagi Hernandez - Last Filed: 01/20/18 19:56> Objective - Vital Signs/Intake and Output Vital Signs (last 24 hours): Temp Pulse Resp BP Pulse Ox 99.7 F H 90 20 99/67 L 97 01/20/18 16:04 01/20/18 16:04 01/20/18 16:04 01/20/18 16:04 01/20/18 16:04 Intake and Output: 01/20/18 01/20/18 06:59 18:59 Intake Total 2750 1250 Output Total 957 620 Balance 1793 630 - Medications Medications: Current Medications Albuterol/Ipratropium (Duoneb 3 Mg/0.5 Mg (3 Ml) Ud) 3 ml INH RQ6 PRN PRN Reason: Shortness of Breath Dextrose (Dextrose 50% Inj) 0 ml IV STAT PRN; Protocol PRN Reason: Hypoglycemia Protocol Dextrose (Glutose 15) 0 gm PO ONCE PRN; Protocol PRN Reason: Hypoglycemia Protocol Glucagon (Glucagen Diagnostic Kit) 0 mg IM STAT PRN; Protocol PRN Reason: Hypoglycemia Protocol Hydromorphone HCl (Dilaudid) 0.5 mg IVP Q3H PRN PRN Reason: Pain, severe (8-10) Stop: 01/21/18 10:11 Metronidazole (Flagyl) 500 mg in 100 mls @ 100 mls/hr IVPB Q8 [facility] PRN Reason: Protocol Last Admin: 01/20/18 13:26 Dose: 100 mls/hr Piperacillin Sod/Tazobactam Sod (Zosyn 3.375 Gm Iv Premix) 3.375 gm in 50 mls @ 100 mls/hr IVPB Q6H [facility] PRN Reason: Protocol Last Admin: 01/20/18 12:43 Dose: 100 mls/hr Dextrose (Dextrose 5% In Water 1000 Ml) 1,000 mls @ 0 mls/hr IV .Q0M PRN; Protocol; Per Protocol PRN Reason: Hypoglycemia Protocol Lactated Ringer's (Lactated Ringer's) 1,000 mls @ 150 mls/hr IV .Q6H40M [facility] Stop: 01/22/18 02:01 Last Admin: 01/20/18 13:20 Dose: 150 mls/hr Insulin Aspart (Novolog) 0 unit SC ACHS [facility] PRN Reason: Protocol Last Admin: 01/20/18 16:30 Dose: Not Given Ketorolac Tromethamine (Toradol) 30 mg IVP Q6 [facility] Last Admin: 01/20/18 17:23 Dose: 30 mg Modafinil (Provigil) 100 mg PO DAILY [facility] Last Admin: 01/20/18 11:26 Dose: 100 mg Ondansetron HCl (Zofran Inj) 4 mg IVP Q6 PRN PRN Reason: Nausea/Vomiting Last Admin: 01/20/18 14:54 Dose: 4 mg Oxycodone/Acetaminophen (Percocet 5/325 Mg Tab) 1 tab PO Q4H PRN PRN Reason: Pain, moderate (4-7) Stop: 01/23/18 10:11 Last Admin: 01/20/18 13:14 Dose: 1 tab - Labs Labs: 01/20/18 13:34 01/20/18 07:55 PT 17.8 SECONDS (9.7-12.2) H 01/19/18 20:07 INR 1.6 01/19/18 20:07 APTT 28 SECONDS (21-34) 01/19/18 20:07 Attending/Attestation - Attestation I have personally seen and examined this patient.: Yes I have fully participated in the care of the patient.: Yes I have reviewed all pertinent clinical information, including history, physical exam and plan: Yes Notes (Text): Seen and examined by me .He was lying comfortable.He had abdominal pain last night, Patient had clear liquids for dinner and felt okay. Patient woke up at 4am with severe right sided abdominal pain and had 1 episode of diarrhea. On examination his pain was better Examination he had abdominal tenderness better than yesterday continue liquids as tolerated continue antibiotics surgery and ID follow up d/w the resident. I agree with the resident's documentation of the assessemnta dn the plan
[2018-01-19] MEDS: (Novolog) Insulin Aspart, Recombinant 100 u/ml 10 ml vial SC SCH ×4 (07:59→22:00)
[2018-01-19 08:18] LABS: ALB/GLOB RATIO 0.9 (1.0-2.1); ALBUMIN 3.2 g/dL (3.5-5.0); ALT/SGPT 16 U/L (21-72); AST/SGOT 24 U/L (17-59); BLOOD UREA NITROGEN 12 mg/dL (9-20); CALCIUM 8.4 mg/dl (8.6-10.4); GFR AFRICAN-AMERICAN > 60; GFR NON-AFRICAN AMERICAN > 60
[2018-01-19] MEDS ORDERED: Albuterol-Ipratrop 3 mg / 0.5 (3 ml) UD INH PRN (09:46)
[2018-01-19 09:56] LABS: BANDS 3 % (0-2); EOSINOPHIL 1 % (0-4); LYMPHOCYTE 8 % (20-40); MONOCYTE 10 % (0-10); NEUTROPHIL 78 % (50-75); PLATELET ESTIMATE NORMAL (NORMAL); TOTAL CELLS COUNTED 100
--- NOTE | 2018-01-19 11:26 | CP.PCM.PN ---
Subjective - Date & Time of Evaluation Date of Evaluation: 01/19/18 Time of Evaluation: 11:23 - Subjective Subjective: Surgery: Dr. Welch Pt seen and examined. No acute overnight events. Pt states he is feeling ok but still has pain in b/l lower quadrants of the abdomen that seems to be spreading upwards. He admits to tolerating CLD but continues to have diarrhea. Denies N/V , F/C. Objective - Vital Signs/Intake and Output Vital Signs (last 24 hours): Temp Pulse Resp BP Pulse Ox 98.2 F 71 20 173/81 H 98 01/19/18 07:55 01/19/18 07:55 01/19/18 07:55 01/19/18 07:55 01/19/18 07:55 Intake and Output: 01/19/18 01/19/18 06:59 18:59 Intake Total 2520 Output Total 0 Balance 2520 - Medications Medications: Current Medications Albuterol/Ipratropium (Duoneb 3 Mg/0.5 Mg (3 Ml) Ud) 3 ml INH RQ6 PRN PRN Reason: Shortness of Breath Dextrose (Dextrose 50% Inj) 0 ml IV STAT PRN; Protocol PRN Reason: Hypoglycemia Protocol Dextrose (Glutose 15) 0 gm PO ONCE PRN; Protocol PRN Reason: Hypoglycemia Protocol Glucagon (Glucagen Diagnostic Kit) 0 mg IM STAT PRN; Protocol PRN Reason: Hypoglycemia Protocol Sodium Chloride (Sodium Chloride 0.9%) 1,000 mls @ 150 mls/hr IV .Q6H40M [facility] Last Admin: 01/19/18 05:23 Dose: 150 mls/hr Metronidazole (Flagyl) 500 mg in 100 mls @ 100 mls/hr IVPB Q8 [facility] PRN Reason: Protocol Last Admin: 01/19/18 05:22 Dose: 100 mls/hr Piperacillin Sod/Tazobactam Sod (Zosyn 3.375 Gm Iv Premix) 3.375 gm in 50 mls @ 100 mls/hr IVPB Q6H [facility] PRN Reason: Protocol Last Admin: 01/19/18 06:30 Dose: 100 mls/hr Dextrose (Dextrose 5% In Water 1000 Ml) 1,000 mls @ 0 mls/hr IV .Q0M PRN; Protocol; Per Protocol PRN Reason: Hypoglycemia Protocol Insulin Aspart (Novolog) 0 unit SC ACHS [facility] PRN Reason: Protocol Last Admin: 01/19/18 07:59 Dose: Not Given Ketorolac Tromethamine (Toradol) 30 mg IVP Q6 PRN PRN Reason: Pain, moderate (4-7) Last Admin: 01/19/18 04:36 Dose: 30 mg Modafinil (Provigil) 100 mg PO DAILY [facility] Last Admin: 01/19/18 10:56 Dose: 100 mg Ondansetron HCl (Zofran Inj) 4 mg IVP Q6 PRN PRN Reason: Nausea/Vomiting Oxycodone HCl (Oxycodone Immediate Release Tab) 5 mg PO Q6 PRN PRN Reason: Pain, severe (8-10) Last Admin: 01/18/18 19:56 Dose: 5 mg Pneumococcal Polyvalent Vaccine (Pneumovax 23 Vaccine) 0.5 ml IM .ONCE ONE Stop: 01/20/18 10:01 - Labs Labs: 01/19/18 07:09 01/19/18 07:09 - Constitutional Appears: Well, No Acute Distress - Head Exam Head Exam: ATRAUMATIC, NORMOCEPHALIC - Eye Exam Eye Exam: Normal appearance - ENT Exam ENT Exam: Mucous Membranes Moist - Respiratory Exam Respiratory Exam: NORMAL BREATHING PATTERN - Cardiovascular Exam Cardiovascular Exam: RRR - GI/Abdominal Exam GI & Abdominal Exam: Soft, Tenderness (b/l lower quadrants ). absent: Distended - Neurological Exam Neurological Exam: Alert, Awake, Oriented x3 - Skin Skin Exam: Dry, Warm Assessment and Plan - Assessment and Plan (Free Text) Assessment: 37M with acute diverticulitis; [place] Plan: - repeat CT abdomen today since there hasn't been much improvement in pain to assess if there's a drainable collection - keep on CLD for now - continue IV ABX - d/w Dr. Yuri Dejesus, PGY-3
[2018-01-19] MEDS ORDERED: Iohexol 240 (50 ml) PO ONE (14:00)
[2018-01-19] MEDS ORDERED: Iodixanol 320 MG/ML 100 ML BOTTLE IV ONE (17:35)
--- NOTE | 2018-01-19 19:09 | CT ---
PROCEDURE: CT Abdomen and Pelvis with contrast HISTORY: diverticulitis w/microperf on admission COMPARISON: Comparison is made to the previous study dated 01/16/2015 TECHNIQUE: Contrast dose: 100 mL Visipaque 320 Radiation dose: Total exam DLP = 1355.96 mGy-cm. This CT exam was performed using one or more of the following dose reduction techniques: Automated exposure control, adjustment of the mA and/or kV according to patient size, and/or use of iterative reconstruction technique. FINDINGS: LOWER THORAX: There are trace bilateral pleural effusions new compared to the previous exam. LIVER: No significant interval change in the liver noted since the previous exam. GALLBLADDER AND BILE DUCTS: Distended gallbladder with mild diffuse wall thickening. No evidence of acute cholecystitis. PANCREAS: No evidence of acute pancreatitis or dilated main pancreatic duct. SPLEEN: The spleen is upper normal limit in size measures up to 12.9 centimeter. ADRENALS: Unremarkable. No mass. KIDNEYS AND URETERS: There is nonobstructing 4 millimeter calculus at the lower pole of the left kidney again noted. VASCULATURE: Unremarkable. No aortic aneurysm. BOWEL: There are moderate wall thickening in the distal descending and sigmoid colon. Moderate wall thickening also noted in the adjacent small bowel loops at the mid and lower left abdomen APPENDIX: There is no evidence of acute appendicitis. PERITONEUM: There is interval appearance of small to moderate amount of free air in the abdomen since the previous exam. There is a extraluminal air and fluid seen at the left mid to lower abdomen with possible an early abscess formation noted image 121 series 3. There is diffuse mesenteric fat stranding in the mid and lower left abdomen suggestive of diffuse inflammatory changes and edema. There is also small amount of free fluid in the pelvis. LYMPH NODES: Unremarkable. No enlarged lymph nodes. BLADDER: Mild urinary bladder wall thickening is noted. REPRODUCTIVE: Unremarkable. BONES: No acute fracture. OTHER FINDINGS: None. IMPRESSION: Interval worsening of inflammatory changes at the distal descending colon and proximal sigmoid colon since the previous exam. Interval worsening of free air and free fluid in the abdomen and upper pelvis since the previous study. There is extraluminal fluid and air adjacent to the sigmoid colon suspicious for an early abscess formation. Unremarkable contrast enhanced CT of the abdomen and pelvis. Diffuse inflammatory changes in the left mid and lower abdomen worse compared to the previous exam. Free air and free fluid in the abdomen and pelvis.
--- NOTE | 2018-01-19 19:34 | CP.PCM.PN ---
Subjective - Date & Time of Evaluation Date of Evaluation: 01/19/18 Time of Evaluation: 19:33 - Subjective Subjective: Crescencio Jackson PGY2 Note Paged for abdominal pain, low grade fever 100.[address] this afternoon Increased abdominal pain, looks worse clinically CT scan showed free air in the abdomen, worsening of region with possible abscess formation in descending colon Graphic Specialist made aware and examined at bedside with me Dr. Welch made aware as well patient will be going to OR tonight at 8:30 for emergent surgery placed NPO was on CLD for lunch; had clear broth had grape juice at 4:30PM no other food since then Crescencio Jackson PGY2 Objective - Vital Signs/Intake and Output Vital Signs (last 24 hours): Temp Pulse Resp BP Pulse Ox 99.3 F 79 20 142/78 96 01/19/18 15:00 01/19/18 15:00 01/19/18 15:00 01/19/18 15:00 01/19/18 15:00 Intake and Output: 01/19/18 01/20/18 18:59 06:59 Intake Total 1440 Output Total 0 Balance 1440 - Medications Medications: Current Medications Albuterol/Ipratropium (Duoneb 3 Mg/0.5 Mg (3 Ml) Ud) 3 ml INH RQ6 PRN PRN Reason: Shortness of Breath Dextrose (Dextrose 50% Inj) 0 ml IV STAT PRN; Protocol PRN Reason: Hypoglycemia Protocol Dextrose (Glutose 15) 0 gm PO ONCE PRN; Protocol PRN Reason: Hypoglycemia Protocol Glucagon (Glucagen Diagnostic Kit) 0 mg IM STAT PRN; Protocol PRN Reason: Hypoglycemia Protocol Sodium Chloride (Sodium Chloride 0.9%) 1,000 mls @ 150 mls/hr IV .Q6H40M [facility] Last Admin: 01/19/18 05:23 Dose: 150 mls/hr Metronidazole (Flagyl) 500 mg in 100 mls @ 100 mls/hr IVPB Q8 [facility] PRN Reason: Protocol Last Admin: 01/19/18 14:43 Dose: 100 mls/hr Piperacillin Sod/Tazobactam Sod (Zosyn 3.375 Gm Iv Premix) 3.375 gm in 50 mls @ 100 mls/hr IVPB Q6H [facility] PRN Reason: Protocol Last Admin: 01/19/18 12:43 Dose: 100 mls/hr Dextrose (Dextrose 5% In Water 1000 Ml) 1,000 mls @ 0 mls/hr IV .Q0M PRN; Protocol; Per Protocol PRN Reason: Hypoglycemia Protocol Insulin Aspart (Novolog) 0 unit SC ACHS [facility] PRN Reason: Protocol Last Admin: 01/19/18 16:45 Dose: Not Given Ketorolac Tromethamine (Toradol) 30 mg IVP Q6 PRN PRN Reason: Pain, moderate (4-7) Last Admin: 01/19/18 15:46 Dose: 30 mg Modafinil (Provigil) 100 mg PO DAILY [facility] Last Admin: 01/19/18 10:56 Dose: 100 mg Ondansetron HCl (Zofran Inj) 4 mg IVP Q6 PRN PRN Reason: Nausea/Vomiting Oxycodone HCl (Oxycodone Immediate Release Tab) 5 mg PO Q6 PRN PRN Reason: Pain, severe (8-10) Last Admin: 01/18/18 19:56 Dose: 5 mg Pneumococcal Polyvalent Vaccine (Pneumovax 23 Vaccine) 0.5 ml IM .ONCE ONE Stop: 01/20/18 10:01 - Labs Labs: 01/19/18 07:09 01/19/18 07:09
[2018-01-19 19:59] LABS: VENOUS BLOOD GAS BASE EXCESS -0.9 mmol/L (0.0-2.0); VENOUS BLOOD GAS PCO2 31 mmHg (40-60); VENOUS BLOOD GAS PO2 47 mm/Hg (30-55); VENOUS BLOOD PH 7.46 (7.32-7.43)
[2018-01-19 20:11] LABS: BASO % 0.2 % (0.0-2.0); EOS % 0.5 % (0.0-4.0); HEMOGLOBIN 12.5 g/dL (12.0-18.0); LYMPH # 0.8 K/uL (1.0-4.3); LYMPH % 8.5 % (20.0-40.0); MEAN CELL VOLUME 88.9 fL (80.0-94.0); MEAN CORPUSCULAR HEMOGLOBIN 31.6 pg (27.0-31.0); MEAN CORPUSCULAR HGB CONC 35.5 g/dL (33.0-37.0); MONO # 1.1 K/uL (0.0-0.8); MONO % 12.5 % (0.0-10.0); NEUT % 78.3 % (50.0-75.0); PLATELET COUNT 174 K/uL (130-400); RBC 3.95 Mil/uL (4.40-5.90); RED CELL DISTRIBUTION WIDTH 12.4 % (11.5-14.5)
[2018-01-19 20:24] LABS: INR 1.6; PROTHROMBIN TIME 17.8 SECONDS (9.7-12.2)
[2018-01-19 20:31] LABS: ALB/GLOB RATIO 0.9 (1.0-2.1); ALBUMIN 3.1 g/dL (3.5-5.0); ALT/SGPT 16 U/L (21-72); AST/SGOT 15 U/L (17-59); BLOOD UREA NITROGEN 10 mg/dL (9-20); CALCIUM 8.2 mg/dl (8.6-10.4); GFR AFRICAN-AMERICAN > 60; GFR NON-AFRICAN AMERICAN > 60
[2018-01-19] MEDS ORDERED: Propofol 10 mg/ml Inj (20 ML) ONE ×2 (20:41→22:30)
[2018-01-19] MEDS ORDERED: Midazolam 2 MG/2 ML VIAL ONE (20:41)
[2018-01-19] MEDS ORDERED: Rocuronium 10 mg/ml (5 ml) ONE (20:42)
[2018-01-19 21:20] LABS: LYMPHOCYTE 12 % (20-40); MONOCYTE 4 % (0-10); NEUTROPHIL 84 % (50-75); TOTAL CELLS COUNTED 100
[2018-01-19 21:21] LABS: PLATELET ESTIMATE NORMAL (NORMAL)
[2018-01-19] MEDS ORDERED: Morphine 4 MG/ML VIAL ONE ×2 (22:15→23:04)
[2018-01-19] MEDS ORDERED: HYDROmorphone 0.5 mg/0.5 ml ISec IVP PRN (23:21)
[2018-01-19] MEDS ORDERED: Morphine Monoject Barrel PCA 1mg/ml IV PRN (23:25)
--- NOTE | 2018-01-19 23:36 | PCM.SURG1 ---
Surgeon's Initial Post Op Note - Surgeon's Notes Surgeon: Dr. Welch Gang Drill Press Operator: Ronit Fair PGY2 Type of Anesthesia: General Endo Pre-Operative Diagnosis: Severe Diverticulitis with perforation Operative Findings: Thick edematous descending distal colon to proximal sigmoid colon with thick exudate surrounding it. see full operative report Post-Operative Diagnosis: same Operation Performed: exploratory laparotomy with descending colon partial colectomy with primary anastamosis and diverting transverse loop colostomy Specimen/Specimens Removed: distal descending colon Estimated Blood Loss: EBL {In ML}: 300 Blood Products Given: N/A Drains Used: Ramses Date of Surgery/Procedure: 01/19/18 Time of Surgery/Procedure: 21:00
[2018-01-20] MEDS ORDERED: Sodium Chloride 0.9% 1,000 ML IV ONE (00:15)
[2018-01-20] MEDS: Piperacill/Tazo 3.375gm in Dex 3.375 GM/50 ML BAG IVPB SCH ×4 (01:15→19:09)
[2018-01-20] MEDS: Sodium Chloride 0.9% 1,000 ML IV SCH (01:35)
[2018-01-20] MEDS: Lactated Ringer's 1,000 ML IV SCH ×5 (02:10→21:59)
[2018-01-20] MEDS: metroNIDAZOLE IV 500 mg/100 ml 500 MG/100 ML BAG IVPB SCH ×3 (05:50→21:54)
[2018-01-20 08:04] LABS: BASO % 0.3 % (0.0-2.0); EOS % 0.4 % (0.0-4.0); HEMOGLOBIN 12.2 g/dL (12.0-18.0); LYMPH # 0.7 K/uL (1.0-4.3); LYMPH % 7.1 % (20.0-40.0); MEAN CELL VOLUME 89.7 fL (80.0-94.0); MEAN CORPUSCULAR HEMOGLOBIN 31.7 pg (27.0-31.0); MEAN CORPUSCULAR HGB CONC 35.3 g/dL (33.0-37.0); MEAN PLATELET VOLUME 8.4 fL (7.2-11.7); MONO # 1.2 K/uL (0.0-0.8); MONO % 12.8 % (0.0-10.0); NEUT # 7.6 K/uL (1.8-7.0); NEUT % 79.4 % (50.0-75.0); PLATELET COUNT 177 K/uL (130-400); RBC 3.84 Mil/uL (4.40-5.90); RED CELL DISTRIBUTION WIDTH 12.6 % (11.5-14.5); WHITE BLOOD COUNT 9.6 K/uL (4.8-10.8)
[2018-01-20] MEDS: (Novolog) Insulin Aspart, Recombinant 100 u/ml 10 ml vial SC SCH ×4 (08:17→21:49)
[2018-01-20 08:18] LABS: ALB/GLOB RATIO 0.8 (1.0-2.1); ALBUMIN 2.7 g/dL (3.5-5.0); ALT/SGPT 15 U/L (21-72); AST/SGOT 17 U/L (17-59); BLOOD UREA NITROGEN 8 mg/dL (9-20); CALCIUM 7.8 mg/dl (8.6-10.4); GFR AFRICAN-AMERICAN > 60; GFR NON-AFRICAN AMERICAN > 60
[2018-01-20] MEDS ORDERED: Pneumococcal 23-Valent Vaccine IM ONE (10:00)
--- NOTE | 2018-01-20 10:02 | OP ---
PROCEDURE DATE: 01/19/2018. PREOPERATIVE DIAGNOSIS: Colon perforation from acute diverticulitis. POSTOPERATIVE DIAGNOSIS: Colon perforation from acute diverticulitis. PROCEDURE PERFORMED: Left partial colectomy and transverse colostomy. SURGEON: Bharathi Welch MD FINDINGS OF SURGERY: There is a tremendous amount of fibrinopurulent exudate surrounding a large inflammatory mass located in the mid descending colon. Tremendous amount of edema noted in the area. Most of the small bowel is distended. No other pathology noted except for the large amount of fluid in the peritoneal cavity. There is a large inflammatory mass in this portion of the colon. DESCRIPTION OF PROCEDURE: Under general anesthesia, the patient was prepared and draped in a sterile fashion. The patient was placed in a partial lithotomy position. A Macdonald catheter was inserted and the abdomen prepped and draped. A midline incision extending from the symphysis pubis going towards the left side of umbilicus and in the midline, this was accomplished by the electrocautery machine. The peritoneal cavity was entered after controlling all the subcutaneous bleeders and the above finding was demonstrated. It was at this point that we noticed that the lesion was way up high just below the splenic flexure. Therefore the incision was extended all the way up to almost the xiphoid process. The left colon was then mobilized by incising through white line of Toldt. The colon was partially mobilized and deflected medially. The proximal colon was then transected with the aid of the AutoSuture model TA 60. The corresponding mesentery was then controlled with the Endoseal, Surgicel and then was transected distal to the inflammatory mass. Bleeders controlled with the ligatures of 0 Vicryl and then anastomosis was performed after mobilizing the colon both distally and proximally. One way anastomosis utilizing 3-0 silk sutures was done. This was accomplished without any problems and without any tension in the anastomosis following which it was irrigated with a large amount of saline solution. A loop colostomy and transverse colostomy was then performed. The colon was sutured to the skin with multiple interrupted sutures of 3-0 silk and then it was opened after closure of the abdominal incision. The estimated blood loss for the procedure approximately about 300 mL. A drain was left in the pelvis and was brought out through a separate stab wound on the left side of the incision. The procedure was tolerated by the patient and left the operating room in fair condition. Bharathi Welch MD
[2018-01-20] MEDS ORDERED: HYDROmorphone 0.5 mg/0.5 ml ISec IVP PRN ×2 (10:10→14:48)
[2018-01-20 11:23] LABS: BANDS 11 % (0-2); LYMPHOCYTE 4 % (20-40); MONOCYTE 13 % (0-10); NEUTROPHIL 72 % (50-75); PLATELET ESTIMATE NORMAL (NORMAL); TOTAL CELLS COUNTED 100
[2018-01-20] MEDS ORDERED: Magnesium Oxide 400 mg Tab UD PO ONE (12:45)
--- NOTE | 2018-01-20 12:49 | CP.PCM.PN ---
Subjective - Date & Time of Evaluation Date of Evaluation: 01/20/18 Time of Evaluation: 08:00 - Subjective Subjective: Surgery; Dr. Welch Pt seen and examined. s/p Ex-lap with descending colon resection/anastomosis & transverse ostomy. States pain is well controlled at this time. Denies N/V, F/ C. Objective - Vital Signs/Intake and Output Vital Signs (last 24 hours): Temp Pulse Resp BP Pulse Ox 99.1 F 79 20 101/69 98 01/20/18 07:00 01/20/18 07:00 01/20/18 07:00 01/20/18 07:00 01/20/18 07:00 Intake and Output: 01/20/18 01/20/18 06:59 18:59 Intake Total 2750 Output Total 957 Balance 1793 - Medications Medications: Current Medications Albuterol/Ipratropium (Duoneb 3 Mg/0.5 Mg (3 Ml) Ud) 3 ml INH RQ6 PRN PRN Reason: Shortness of Breath Dextrose (Dextrose 50% Inj) 0 ml IV STAT PRN; Protocol PRN Reason: Hypoglycemia Protocol Dextrose (Glutose 15) 0 gm PO ONCE PRN; Protocol PRN Reason: Hypoglycemia Protocol Glucagon (Glucagen Diagnostic Kit) 0 mg IM STAT PRN; Protocol PRN Reason: Hypoglycemia Protocol Hydromorphone HCl (Dilaudid) 0.5 mg IVP Q6H PRN PRN Reason: Pain, severe (8-10) Stop: 01/21/18 10:11 Last Admin: 01/20/18 10:51 Dose: 0.5 mg Sodium Chloride (Sodium Chloride 0.9%) 1,000 mls @ 150 mls/hr IV .Q6H40M [facility] Last Admin: 01/20/18 01:35 Dose: Not Given Metronidazole (Flagyl) 500 mg in 100 mls @ 100 mls/hr IVPB Q8 [facility] PRN Reason: Protocol Last Admin: 01/20/18 05:50 Dose: 100 mls/hr Piperacillin Sod/Tazobactam Sod (Zosyn 3.375 Gm Iv Premix) 3.375 gm in 50 mls @ 100 mls/hr IVPB Q6H [facility] PRN Reason: Protocol Last Admin: 01/20/18 12:43 Dose: 100 mls/hr Dextrose (Dextrose 5% In Water 1000 Ml) 1,000 mls @ 0 mls/hr IV .Q0M PRN; Protocol; Per Protocol PRN Reason: Hypoglycemia Protocol Lactated Ringer's (Lactated Ringer's) 1,000 mls @ 150 mls/hr IV .Q6H40M [facility] Stop: 01/22/18 02:01 Last Admin: 01/20/18 02:10 Dose: 150 mls/hr Insulin Aspart (Novolog) 0 unit SC ACHS [facility] PRN Reason: Protocol Last Admin: 01/20/18 12:24 Dose: Not Given Ketorolac Tromethamine (Toradol) 15 mg IVP Q6 PRN PRN Reason: Pain, moderate (4-7) Modafinil (Provigil) 100 mg PO DAILY [facility] Last Admin: 01/20/18 11:26 Dose: 100 mg Ondansetron HCl (Zofran Inj) 4 mg IVP Q6 PRN PRN Reason: Nausea/Vomiting Oxycodone/Acetaminophen (Percocet 5/325 Mg Tab) 1 tab PO Q4H PRN PRN Reason: Pain, moderate (4-7) Stop: 01/23/18 10:11 - Labs Labs: 01/20/18 07:55 01/20/18 07:55 PT 17.8 SECONDS (9.7-12.2) H 01/19/18 20:07 INR 1.6 01/19/18 20:07 APTT 28 SECONDS (21-34) 01/19/18 20:07 - Constitutional Appears: Well, No Acute Distress - Head Exam Head Exam: ATRAUMATIC, NORMOCEPHALIC - Eye Exam Eye Exam: Normal appearance - ENT Exam ENT Exam: Mucous Membranes Moist - Respiratory Exam Respiratory Exam: NORMAL BREATHING PATTERN - Cardiovascular Exam Cardiovascular Exam: RRR - GI/Abdominal Exam GI & Abdominal Exam: Soft, Tenderness (around midline incision; C/D/I. Ramses drain with serosang output ) - Neurological Exam Neurological Exam: Alert, Awake - Skin Skin Exam: Dry, Warm Assessment and Plan - Assessment and Plan (Free Text) Assessment: 37M s/p Ex-lap with colon resection/anastomosis & transverse ostomy for perforated diverticulitis; POD#1 Plan: - DC NGT, DC castaneda - Ok to start sips/chips - Monitor ostomy output - Encourage ambulation/IS - d/w Dr. Yuri Dejesus, PGY-3
[2018-01-20] MEDS: Oxycodone/Acetaminophen 5/325 mg Tab PO PRN (13:14)
[2018-01-20 13:44] LABS: BASO % 0.3 % (0.0-2.0); EOS # 0.1 K/uL (0.0-0.7); EOS % 0.8 % (0.0-4.0); HEMOGLOBIN 12.7 g/dL (12.0-18.0); LYMPH # 1.1 K/uL (1.0-4.3); LYMPH % 9.9 % (20.0-40.0); MEAN CELL VOLUME 89.7 fL (80.0-94.0); MEAN CORPUSCULAR HEMOGLOBIN 32.2 pg (27.0-31.0); MEAN CORPUSCULAR HGB CONC 35.9 g/dL (33.0-37.0); MEAN PLATELET VOLUME 8.1 fL (7.2-11.7); MONO # 1.5 K/uL (0.0-0.8); MONO % 14.1 % (0.0-10.0); NEUT % 74.9 % (50.0-75.0); PLATELET COUNT 192 K/uL (130-400); RBC 3.96 Mil/uL (4.40-5.90); WHITE BLOOD COUNT 10.7 K/uL (4.8-10.8)
--- NOTE | 2018-01-20 14:07 | CP.PCM.PN ---
<Jordyn Soto - Last Filed: 01/20/18 17:08> Subjective - Date & Time of Evaluation Date of Evaluation: 01/20/18 Time of Evaluation: 07:00 - Subjective Subjective: PGY1- Medicine progress note Patient seen and examined at bedside. Patient is s/p Ex-lap with colon resection /anastomosis & transverse ostomy for perforated diverticulitis; POD#1. Patient says his abdominal pain is 6/10. Patient has no other complaints. Patient denies any chest pain, shortness of breath, nausea, vomiting. Early afternoon patient admits to having a "mental breakdown." He was crying and very upset/ depressed about his current health situation and his family situation. Patient seen again after this episode and in better spirits. Patient admits to having bipolar disorder and following up with a therapist once a month. Objective - Vital Signs/Intake and Output Vital Signs (last 24 hours): Temp Pulse Resp BP Pulse Ox 99.1 F 79 20 101/69 98 01/20/18 07:00 01/20/18 07:00 01/20/18 07:00 01/20/18 07:00 01/20/18 07:00 Intake and Output: 01/20/18 01/20/18 06:59 18:59 Intake Total 2750 Output Total 957 Balance 1793 - Medications Medications: Current Medications Albuterol/Ipratropium (Duoneb 3 Mg/0.5 Mg (3 Ml) Ud) 3 ml INH RQ6 PRN PRN Reason: Shortness of Breath Dextrose (Dextrose 50% Inj) 0 ml IV STAT PRN; Protocol PRN Reason: Hypoglycemia Protocol Dextrose (Glutose 15) 0 gm PO ONCE PRN; Protocol PRN Reason: Hypoglycemia Protocol Glucagon (Glucagen Diagnostic Kit) 0 mg IM STAT PRN; Protocol PRN Reason: Hypoglycemia Protocol Hydromorphone HCl (Dilaudid) 0.5 mg IVP Q6H PRN PRN Reason: Pain, severe (8-10) Stop: 01/21/18 10:11 Last Admin: 01/20/18 10:51 Dose: 0.5 mg Metronidazole (Flagyl) 500 mg in 100 mls @ 100 mls/hr IVPB Q8 [facility] PRN Reason: Protocol Last Admin: 01/20/18 13:26 Dose: 100 mls/hr Piperacillin Sod/Tazobactam Sod (Zosyn 3.375 Gm Iv Premix) 3.375 gm in 50 mls @ 100 mls/hr IVPB Q6H [facility] PRN Reason: Protocol Last Admin: 01/20/18 12:43 Dose: 100 mls/hr Dextrose (Dextrose 5% In Water 1000 Ml) 1,000 mls @ 0 mls/hr IV .Q0M PRN; Protocol; Per Protocol PRN Reason: Hypoglycemia Protocol Lactated Ringer's (Lactated Ringer's) 1,000 mls @ 150 mls/hr IV .Q6H40M [facility] Stop: 01/22/18 02:01 Last Admin: 01/20/18 13:20 Dose: 150 mls/hr Insulin Aspart (Novolog) 0 unit SC ACHS [facility] PRN Reason: Protocol Last Admin: 01/20/18 12:24 Dose: Not Given Ketorolac Tromethamine (Toradol) 15 mg IVP Q6 PRN PRN Reason: Pain, moderate (4-7) Modafinil (Provigil) 100 mg PO DAILY [facility] Last Admin: 01/20/18 11:26 Dose: 100 mg Ondansetron HCl (Zofran Inj) 4 mg IVP Q6 PRN PRN Reason: Nausea/Vomiting Oxycodone/Acetaminophen (Percocet 5/325 Mg Tab) 1 tab PO Q4H PRN PRN Reason: Pain, moderate (4-7) Stop: 01/23/18 10:11 Last Admin: 01/20/18 13:14 Dose: 1 tab - Labs Labs: 01/20/18 13:34 01/20/18 07:55 PT 17.8 SECONDS (9.7-12.2) H 01/19/18 20:07 INR 1.6 01/19/18 20:07 APTT 28 SECONDS (21-34) 01/19/18 20:07 Assessment and Plan - Assessment and Plan (Free Text) Assessment: Ex-lap with colon resection/anastomosis & transverse ostomy for perforated diverticulitis POD#1 Surgeon- Dr. Welch CT prior to surgical intervention (01/19): interval worsening of inflammatory changes at the distal descending colon and proximal sigmoid colon since the previous exam. interval worsening of free air and free fluid in the abdomen and upper pelvis since the previous study. Extraluminal fluid and air adjacent to sigmoid colon suspicious for early abscess formation. pain control with percocet and dilaudid IVF NPO ok for small sips and ice chips Flagyl 500mg ivpb q8h Zosyn 3.375gm q6h ID on consult, Dr. Viera, help appreciated stool studied negative blood culture- neg after 3 days Impaired Glucose Tolerance -HBA1C 6.2 -insulin sliding scale- low -accuchecks achs -hypoglycemia protocol -TSH: 1.19 -Lipid panel: Triglycerides-61, Cholesterol-136, LDL-81, HDL-31 Depression/Bipolar Disorder -c/w Modafanil -Psych consulted, Dr. Almeida, help appreciated Hx of Asthma -duonebs q6h prn Prophylaxis -SCDs -GI prophylaxis not indicated -NPO <Nagi Hernandez - Last Filed: 01/20/18 20:02> Objective - Vital Signs/Intake and Output Vital Signs (last 24 hours): Temp Pulse Resp BP Pulse Ox 99.7 F H 90 20 99/67 L 97 01/20/18 16:04 01/20/18 16:04 01/20/18 16:04 01/20/18 16:04 01/20/18 16:04 Intake and Output: 01/20/18 01/21/18 18:59 06:59 Intake Total 1250 Output Total 620 Balance 630 - Medications Medications: Current Medications Albuterol/Ipratropium (Duoneb 3 Mg/0.5 Mg (3 Ml) Ud) 3 ml INH RQ6 PRN PRN Reason: Shortness of Breath Dextrose (Dextrose 50% Inj) 0 ml IV STAT PRN; Protocol PRN Reason: Hypoglycemia Protocol Dextrose (Glutose 15) 0 gm PO ONCE PRN; Protocol PRN Reason: Hypoglycemia Protocol Glucagon (Glucagen Diagnostic Kit) 0 mg IM STAT PRN; Protocol PRN Reason: Hypoglycemia Protocol Hydromorphone HCl (Dilaudid) 0.5 mg IVP Q3H PRN PRN Reason: Pain, severe (8-10) Stop: 01/21/18 10:11 Metronidazole (Flagyl) 500 mg in 100 mls @ 100 mls/hr IVPB Q8 [facility] PRN Reason: Protocol Last Admin: 01/20/18 13:26 Dose: 100 mls/hr Dextrose (Dextrose 5% In Water 1000 Ml) 1,000 mls @ 0 mls/hr IV .Q0M PRN; Protocol; Per Protocol PRN Reason: Hypoglycemia Protocol Lactated Ringer's (Lactated Ringer's) 1,000 mls @ 150 mls/hr IV .Q6H40M [facility] Stop: 01/22/18 02:01 Last Admin: 01/20/18 13:20 Dose: 150 mls/hr Meropenem 1 gm/ Sodium (Chloride) 100 mls @ 100 mls/hr IVPB Q8 [facility] PRN Reason: Protocol Insulin Aspart (Novolog) 0 unit SC ACHS [facility] PRN Reason: Protocol Last Admin: 01/20/18 16:30 Dose: Not Given Ketorolac Tromethamine (Toradol) 30 mg IVP Q6 [facility] Last Admin: 01/20/18 17:23 Dose: 30 mg Modafinil (Provigil) 100 mg PO DAILY [facility] Last Admin: 01/20/18 11:26 Dose: 100 mg Ondansetron HCl (Zofran Inj) 4 mg IVP Q6 PRN PRN Reason: Nausea/Vomiting Last Admin: 01/20/18 14:54 Dose: 4 mg Oxycodone/Acetaminophen (Percocet 5/325 Mg Tab) 1 tab PO Q4H PRN PRN Reason: Pain, moderate (4-7) Stop: 01/23/18 10:11 Last Admin: 01/20/18 13:14 Dose: 1 tab - Labs Labs: 01/20/18 13:34 01/20/18 07:55 PT 17.8 SECONDS (9.7-12.2) H 01/19/18 20:07 INR 1.6 01/19/18 20:07 APTT 28 SECONDS (21-34) 01/19/18 20:07 Attending/Attestation - Attestation I have personally seen and examined this patient.: Yes I have fully participated in the care of the patient.: Yes I have reviewed all pertinent clinical information, including history, physical exam and plan: Yes Notes (Text): Patient was seen and examined by me. Patient is s/p Ex-lap with colon resection/anastomosis & transverse ostomy for perforated diverticulitis, Patient says his abdominal pain is 6/10 Last night he was in abdominal pain and low grade fever 100.[address] scan showed free air in the abdomen. Patient has bands ,s/p Expl Lap and s/p fever discussed with Dr Viera about antibiotics.continue zosyn and vanco. we will repeat cbc NPO and follow surgery. d/w the resident and I agree with the documentation of the assessment and the plan
[2018-01-20 14:24] LABS: BANDS 3 % (0-2); EOSINOPHIL 1 % (0-4); LYMPHOCYTE 11 % (20-40); MONOCYTE 12 % (0-10); NEUTROPHIL 72 % (50-75); PLATELET ESTIMATE NORMAL (NORMAL); REACTIVE LYMPHOCYTES 1 % (0-0); TOTAL CELLS COUNTED 100
--- NOTE | 2018-01-20 19:21 | CP.PCM.PN ---
Subjective - Date & Time of Evaluation Date of Evaluation: 01/20/18 Time of Evaluation: 02:30 - Subjective Subjective: dictated Objective - Vital Signs/Intake and Output Vital Signs (last 24 hours): Temp Pulse Resp BP Pulse Ox 99.7 F H 90 20 99/67 L 97 01/20/18 16:04 01/20/18 16:04 01/20/18 16:04 01/20/18 16:04 01/20/18 16:04 Intake and Output: 01/20/18 01/21/18 18:59 06:59 Intake Total 1250 Output Total 620 Balance 630 - Medications Medications: Current Medications Albuterol/Ipratropium (Duoneb 3 Mg/0.5 Mg (3 Ml) Ud) 3 ml INH RQ6 PRN PRN Reason: Shortness of Breath Dextrose (Dextrose 50% Inj) 0 ml IV STAT PRN; Protocol PRN Reason: Hypoglycemia Protocol Dextrose (Glutose 15) 0 gm PO ONCE PRN; Protocol PRN Reason: Hypoglycemia Protocol Glucagon (Glucagen Diagnostic Kit) 0 mg IM STAT PRN; Protocol PRN Reason: Hypoglycemia Protocol Hydromorphone HCl (Dilaudid) 0.5 mg IVP Q3H PRN PRN Reason: Pain, severe (8-10) Stop: 01/21/18 10:11 Metronidazole (Flagyl) 500 mg in 100 mls @ 100 mls/hr IVPB Q8 [facility] PRN Reason: Protocol Last Admin: 01/20/18 13:26 Dose: 100 mls/hr Piperacillin Sod/Tazobactam Sod (Zosyn 3.375 Gm Iv Premix) 3.375 gm in 50 mls @ 100 mls/hr IVPB Q6H [facility] PRN Reason: Protocol Last Admin: 01/20/18 19:09 Dose: 100 mls/hr Dextrose (Dextrose 5% In Water 1000 Ml) 1,000 mls @ 0 mls/hr IV .Q0M PRN; Protocol; Per Protocol PRN Reason: Hypoglycemia Protocol Lactated Ringer's (Lactated Ringer's) 1,000 mls @ 150 mls/hr IV .Q6H40M [facility] Stop: 01/22/18 02:01 Last Admin: 01/20/18 13:20 Dose: 150 mls/hr Insulin Aspart (Novolog) 0 unit SC ACHS [facility] PRN Reason: Protocol Last Admin: 01/20/18 16:30 Dose: Not Given Ketorolac Tromethamine (Toradol) 30 mg IVP Q6 [facility] Last Admin: 01/20/18 17:23 Dose: 30 mg Modafinil (Provigil) 100 mg PO DAILY [facility] Last Admin: 01/20/18 11:26 Dose: 100 mg Ondansetron HCl (Zofran Inj) 4 mg IVP Q6 PRN PRN Reason: Nausea/Vomiting Last Admin: 01/20/18 14:54 Dose: 4 mg Oxycodone/Acetaminophen (Percocet 5/325 Mg Tab) 1 tab PO Q4H PRN PRN Reason: Pain, moderate (4-7) Stop: 01/23/18 10:11 Last Admin: 01/20/18 13:14 Dose: 1 tab - Labs Labs: 01/20/18 13:34 01/20/18 07:55 PT 17.8 SECONDS (9.7-12.2) H 01/19/18 20:07 INR 1.6 01/19/18 20:07 APTT 28 SECONDS (21-34) 01/19/18 20:07
[2018-01-20] MEDS ORDERED: Meropenem 1 GM in Sodium Chloride 0.9% 100 ML IVPB SCH (19:30)
--- NOTE | 2018-01-20 23:27 | PN ---
DATE: INFECTIOUS DISEASE FOLLOWUP SUBJECTIVE: The patient yesterday came to see but patient was in the bathroom for a very long time and then I saw on the computer note by the surgical nurse that he may be going for an emergency procedure, laparotomy, as he was deteriorating and he got surgery done last night. He has been here with a diverticulitis with perforation and his repeat CAT scan showed worsening and he had an exploratory lap with descending colon, partial colectomy with primary anastomosis and diverting transverse loop colostomy. They removed the distal descending colon and patient today has a binder on, he says the drain has been removed and the catheter has been removed, but he complains of tremendous pain. He was on now only Dilaudid 0.5 mg and Percocet, which is not helping him and he also has history of bipolar but at that time, he was complaining of too much pain and the nurse was called and the resident was paged and I left it on the resident to deal with the pain medication; however, he was also having some nausea. T-max is 99.7 right now, pulse is 90, blood pressure is 99/67, respirations are 20 at the time when I am dictating. He did have bandemia this morning and we repeated the CBC which showed the bands were decreasing, but at this time when I am dictating I see his blood pressure is low and he still febrile, so I am going to change the medication to meropenem. OBJECTIVE: When he was seen, HEENT: Head was atraumatic, normocephalic. NECK: Supple. LUNGS: Clear. HEART: S1 and S2 is regular. ABDOMEN: He had a binder on. EXTREMITIES: Had no edema. ASSESSMENT AND PLAN: So, at this time, I hope he is getting IV. We will call the floor and find out what is happening with him and we will see this patient as he came in with perforated diverticulum and acute abdomen and went for surgery yesterday. He is also going to be having a psych eval and he is on IV fluids and we will change the antibiotic to Merrem at this time and repeat the labs tomorrow. Kia Viera MD
[2018-01-21] MEDS: Meropenem 1 GM in Sodium Chloride 0.9% 100 ML IVPB SCH ×3 (00:01→14:00)
[2018-01-21] MEDS: Lactated Ringer's 1,000 ML IV SCH ×5 (04:55→21:31)
[2018-01-21] MEDS: metroNIDAZOLE IV 500 mg/100 ml 500 MG/100 ML BAG IVPB SCH ×3 (05:22→21:29)
[2018-01-21 06:52] LABS: BASO % 0.3 % (0.0-2.0); EOS # 0.4 K/uL (0.0-0.7); EOS % 3.4 % (0.0-4.0); HEMOGLOBIN 11.4 g/dL (12.0-18.0); LYMPH # 0.9 K/uL (1.0-4.3); MEAN CORPUSCULAR HEMOGLOBIN 32.1 pg (27.0-31.0); MEAN CORPUSCULAR HGB CONC 35.7 g/dL (33.0-37.0); MONO # 1.2 K/uL (0.0-0.8); MONO % 11.8 % (0.0-10.0); NEUT # 7.8 K/uL (1.8-7.0); NEUT % 75.5 % (50.0-75.0); PLATELET COUNT 192 K/uL (130-400); RBC 3.56 Mil/uL (4.40-5.90); RED CELL DISTRIBUTION WIDTH 12.6 % (11.5-14.5); WHITE BLOOD COUNT 10.3 K/uL (4.8-10.8)
[2018-01-21 07:08] LABS: ALB/GLOB RATIO 0.8 (1.0-2.1); ALBUMIN 2.9 g/dL (3.5-5.0); ALT/SGPT 15 U/L (21-72); AST/SGOT 27 U/L (17-59); BLOOD UREA NITROGEN 13 mg/dL (9-20); CALCIUM 8.2 mg/dl (8.6-10.4); GFR AFRICAN-AMERICAN > 60; GFR NON-AFRICAN AMERICAN > 60
[2018-01-21] MEDS: (Novolog) Insulin Aspart, Recombinant 100 u/ml 10 ml vial SC SCH ×4 (08:00→21:36)
[2018-01-21 08:05] VITALS: RESP 20
[2018-01-21] MEDS: Oxycodone/Acetaminophen 5/325 mg Tab PO PRN (08:08)
--- NOTE | 2018-01-21 08:51 | CP.PCM.PN ---
Subjective - Date & Time of Evaluation Date of Evaluation: 01/21/18 Time of Evaluation: 07:10 - Subjective Subjective: Patient seen and examined at bedside this AM. patient had difficulty sleeping, but states pain is under good control, no nausea or vomiting. Objective - Vital Signs/Intake and Output Vital Signs (last 24 hours): Temp Pulse Resp BP Pulse Ox 97.6 F 76 20 111/72 96 01/21/18 08:04 01/21/18 08:04 01/21/18 08:04 01/21/18 08:04 01/21/18 08:04 Intake and Output: 01/21/18 01/21/18 06:59 18:59 Intake Total 1200 1150 Output Total 415 630 Balance 785 520 - Medications Medications: Current Medications Albuterol/Ipratropium (Duoneb 3 Mg/0.5 Mg (3 Ml) Ud) 3 ml INH RQ6 PRN PRN Reason: Shortness of Breath Dextrose (Dextrose 50% Inj) 0 ml IV STAT PRN; Protocol PRN Reason: Hypoglycemia Protocol Dextrose (Glutose 15) 0 gm PO ONCE PRN; Protocol PRN Reason: Hypoglycemia Protocol Glucagon (Glucagen Diagnostic Kit) 0 mg IM STAT PRN; Protocol PRN Reason: Hypoglycemia Protocol Hydromorphone HCl (Dilaudid) 0.5 mg IVP Q3H PRN PRN Reason: Pain, severe (8-10) Stop: 01/21/18 10:11 Metronidazole (Flagyl) 500 mg in 100 mls @ 100 mls/hr IVPB Q8 [facility] PRN Reason: Protocol Last Admin: 01/21/18 05:22 Dose: 100 mls/hr Dextrose (Dextrose 5% In Water 1000 Ml) 1,000 mls @ 0 mls/hr IV .Q0M PRN; Protocol; Per Protocol PRN Reason: Hypoglycemia Protocol Lactated Ringer's (Lactated Ringer's) 1,000 mls @ 150 mls/hr IV .Q6H40M [facility] Stop: 01/22/18 02:01 Last Admin: 01/21/18 04:55 Dose: Not Given Meropenem 1 gm/ Sodium (Chloride) 100 mls @ 100 mls/hr IVPB Q8 [facility] PRN Reason: Protocol Last Admin: 01/21/18 06:52 Dose: 100 mls/hr Insulin Aspart (Novolog) 0 unit SC ACHS [facility] PRN Reason: Protocol Last Admin: 01/21/18 08:00 Dose: Not Given Ketorolac Tromethamine (Toradol) 30 mg IVP Q6 [facility] Last Admin: 01/21/18 05:26 Dose: 30 mg Modafinil (Provigil) 100 mg PO DAILY [facility] Last Admin: 01/20/18 11:26 Dose: 100 mg Ondansetron HCl (Zofran Inj) 4 mg IVP Q6 PRN PRN Reason: Nausea/Vomiting Last Admin: 01/20/18 14:54 Dose: 4 mg Oxycodone/Acetaminophen (Percocet 5/325 Mg Tab) 1 tab PO Q4H PRN PRN Reason: Pain, moderate (4-7) Stop: 01/23/18 10:11 Last Admin: 01/21/18 08:08 Dose: 1 tab - Labs Labs: 01/21/18 06:40 01/21/18 06:40 PT 17.8 SECONDS (9.7-12.2) H 01/19/18 20:07 INR 1.6 01/19/18 20:07 APTT 28 SECONDS (21-34) 01/19/18 20:07 - Constitutional Appears: Well, Non-toxic, No Acute Distress - Head Exam Head Exam: ATRAUMATIC, NORMOCEPHALIC - Eye Exam Eye Exam: Normal appearance. absent: Conjunctival injection, Scleral icterus - ENT Exam ENT Exam: Mucous Membranes Moist, Normal Oropharynx - Respiratory Exam Respiratory Exam: NORMAL BREATHING PATTERN. absent: Accessory Muscle Use, Respiratory Distress - Cardiovascular Exam Cardiovascular Exam: RRR - GI/Abdominal Exam GI & Abdominal Exam: Soft, Tenderness (hermelinda-incisional and RLQ). absent: Distended Additional comments: Well approximated incision with rogers, minimal amount of sero-sangiuinous output in liban drain, colostomy pink, patent, and productive of gas and minimal amoutn of serosanguinous liquid - Extremities Exam Extremities Exam: absent: Calf Tenderness, Pedal Edema, Tenderness - Neurological Exam Neurological Exam: Alert, Awake, Oriented x3. absent: Abnormal Gait - Psychiatric Exam Psychiatric exam: Normal Affect, Normal Mood - Skin Skin Exam: Dry, Normal Color, Warm Assessment and Plan - Assessment and Plan (Free Text) Assessment: 37m POD#2 s/p partial colectomy with primary anastomosis and transverse colostomy Plan: continue daily labs monitor urine, drain, and ostomy output start on clear liquids and advance diet as tolerated PRN pain medication continue antibiotics encourage ambulation and incentive spirometer DVT prophylaxis Discussed with Dr. Yuri Fair, PGY2
[2018-01-21 09:30] LABS: BANDS 2 % (0-2); EOSINOPHIL 4 % (0-4); LYMPHOCYTE 8 % (20-40); MONOCYTE 10 % (0-10); NEUTROPHIL 76 % (50-75); TOTAL CELLS COUNTED 100
[2018-01-21 09:31] LABS: PLATELET ESTIMATE NORMAL (NORMAL)
[2018-01-21] MEDS ORDERED: Potassium Phosphate 15 MMOLE in Sodium Chloride 0.9% 250 ML IVPB ONE (10:20)
--- NOTE | 2018-01-21 12:56 | PCM.PSYCH ---
Initial Psychiatric Evaluation - Initial Psychiatric Evaluation Type of Admission: Voluntary Legal Status: Capacity Chief Complaint (in patient's own words): CC: "I have bipolar disorder" History of Present Illness and Precipitating Events: HPI: 37 year old male with PMHx of bipolar disorder, DM, HTN admitted for diverticulitis with perforation. He had surgery yesterday. Psychiatry was consulted for evaluation of patient's bipolar disorder and mental status. Patient states he has a long history of trying medications for bipolar disorder and that Modafinil has worked the best for him, he has been taking it for the past 2 years. He has been more depressed over the last 7 months since his mother . He has recently lost the house he and his mother lived in, and has been moving around living with friends. Patient appeared to have racing thoughts, poor concentration and flight of ideas. However he denies any auditory or visual hallucinations, or any paranoia. He denies any suicidal ideation or homicidal ideation. PsychHx: last psychiatric hospitalization 2 yrs ago; has a psychiatrist. He has a history of homicidal and suicidal ideation in the past SocialHx: recently homeless as per HPI; former smoker, denies alcohol/drug use ; unemployed PMHx: DM, HTN Current Medications: Active Medications Generic Name Dose Route Start Last Admin Trade Name Freq PRN Reason Stop Dose Admin Albuterol/Ipratropium 3 ml 01/19/18 09:46 Duoneb 3 Mg/0.5 Mg (3 Ml) Ud INH RQ6 PRN Shortness of Breath Dextrose 0 ml 01/17/18 00:46 Dextrose 50% Inj IV STAT PRN Hypoglycemia Protocol Protocol Dextrose 0 gm 01/17/18 00:46 Glutose 15 PO ONCE PRN Hypoglycemia Protocol Protocol Enoxaparin Sodium 40 mg 01/21/18 13:00 Lovenox SC DAILY [facility] Glucagon 0 mg 01/17/18 00:46 Glucagen Diagnostic Kit IM STAT PRN Hypoglycemia Protocol Protocol Metronidazole 500 mg in 100 mls @ 100 mls/hr 01/17/18 06:00 01/21/18 05:22 Flagyl IVPB 100 mls/hr Q8 [facility] Administration Protocol Dextrose 1,000 mls @ 0 mls/hr 01/17/18 00:46 Dextrose 5% In Water 1000 Ml IV .Q0M PRN Hypoglycemia Protocol Protocol Per Protocol Lactated Ringer's 1,000 mls @ 150 mls/hr 01/20/18 02:00 01/21/18 11:47 Lactated Ringer's IV 01/22/18 02:01 Not Given .Q6H40M [facility] Meropenem 1 gm/ Sodium 100 mls @ 100 mls/hr 01/21/18 00:00 01/21/18 06:52 Chloride IVPB 100 mls/hr Q8 [facility] Administration Protocol Potassium Chloride 10 meq in 100 mls @ 100 mls/hr 01/21/18 09:15 01/21/18 11: 44 Potassium Chloride 10 Meq/100 Ml IVPB 01/21/18 13:14 100 mls/hr Q3H [facility] Administration Potassium Phosphate 15 mmole/ 255 mls @ 42.5 mls/hr 01/21/18 10:20 01/21/18 12:42 Sodium Chloride IVPB 01/21/18 16:19 42.5 mls/hr ONCE ONE Administration Insulin Aspart 0 unit 01/17/18 07:30 01/21/18 11:48 Novolog SC Not Given ACHS [facility] Protocol Ketorolac Tromethamine 30 mg 01/20/18 15:00 01/21/18 12:46 Toradol IVP Not Given Q6 [facility] Modafinil 100 mg 01/17/18 10:00 01/21/18 09:39 Provigil PO 100 mg DAILY [facility] Administration Ondansetron HCl 4 mg 01/17/18 00:01 01/20/18 14:54 Zofran Inj IVP 4 mg Q6 PRN Administration Nausea/Vomiting Oxycodone/Acetaminophen 1 tab 01/20/18 10:10 01/21/18 08:08 Percocet 5/325 Mg Tab PO 01/23/18 10:11 1 tab Q4H PRN Administration Pain, moderate (4-7) Past Psychiatric History - Past Psychiatric History Previous Treatment History: Inpatient Pertinent Medical Hx (Current Medical&Sleep Prob, Allergies): Allergies Allergy/AdvReac Type Severity Reaction Status Date / Time No Known Allergies Allergy Verified 01/16/18 20:16 Modafinil [Provigil] 100 mg PO DAILY 01/01/16 Review of Systems - Review of Systems All systems: reviewed and no additional remarkable complaints except - Psychiatric Psychiatric: Anxiety, Depression. absent: Hallucinations, Suicidal Ideation Mental Status Examination - Personal Presentation Personal Presentation: Looks stated age - Affect Affect: Broad - Motor Activity Motor Activity: Calm - Reliability in Providing Information Reliability in Providing Information: Good - Speech Speech: Organized, Tangential - Mood Mood: Anxious - Formal Thought Process Formal Thought Process: Loosening of associations - Cognitive Functions Orientation: Person, Place, Situation, Time Sensorium: Alert Attention/Concentration: Attentive Abstract Thinking: [place] Estimate of Intelligence: Below average Judgement: Imparied, as evidence by: Poor judgement, Imparied, as evidence by: Lack of insight into illness - Risk Risk: Diminished functioning DSM 5 DX - DSM 5 DSM 5 Diagnosis: Bipolar disorder manic moderate - Recommended/Plan of Treatment Treatment Recommendations and Plan of Treatment: Bipolar disorder manic moderate Psychoeducation Modafinil 100 mg PO daily Continue medical management as per medicine and surgery teams - Smoking Cessation Smoking Cessation Initiated: No
--- NOTE | 2018-01-21 13:11 | CP.PCM.PN ---
<Jordyn Soto - Last Filed: 01/21/18 17:02> Subjective - Date & Time of Evaluation Date of Evaluation: 01/21/18 Time of Evaluation: 07:00 - Subjective Subjective: PGY1- Medicine progress note Patient seen and examined at bedside. Patient is s/p Ex-lap with colon resection /anastomosis & transverse ostomy for perforated diverticulitis; POD#2. Patient' s pain is well controlled and he rates it about 5/10. Patient has no nausea or vomiting. Patient says he has passed a lot of gas into the colostomy bag. Patient is very tearful and upset things going on at home with his family. Objective - Vital Signs/Intake and Output Vital Signs (last 24 hours): Temp Pulse Resp BP Pulse Ox 97.6 F 76 20 111/72 96 01/21/18 08:04 01/21/18 08:04 01/21/18 08:04 01/21/18 08:04 01/21/18 08:04 Intake and Output: 01/21/18 01/21/18 06:59 18:59 Intake Total 1200 1150 Output Total 415 630 Balance 785 520 - Medications Medications: Current Medications Albuterol/Ipratropium (Duoneb 3 Mg/0.5 Mg (3 Ml) Ud) 3 ml INH RQ6 PRN PRN Reason: Shortness of Breath Dextrose (Dextrose 50% Inj) 0 ml IV STAT PRN; Protocol PRN Reason: Hypoglycemia Protocol Dextrose (Glutose 15) 0 gm PO ONCE PRN; Protocol PRN Reason: Hypoglycemia Protocol Enoxaparin Sodium (Lovenox) 40 mg SC DAILY [facility] Glucagon (Glucagen Diagnostic Kit) 0 mg IM STAT PRN; Protocol PRN Reason: Hypoglycemia Protocol Metronidazole (Flagyl) 500 mg in 100 mls @ 100 mls/hr IVPB Q8 [facility] PRN Reason: Protocol Last Admin: 01/21/18 05:22 Dose: 100 mls/hr Dextrose (Dextrose 5% In Water 1000 Ml) 1,000 mls @ 0 mls/hr IV .Q0M PRN; Protocol; Per Protocol PRN Reason: Hypoglycemia Protocol Lactated Ringer's (Lactated Ringer's) 1,000 mls @ 150 mls/hr IV .Q6H40M [facility] Stop: 01/22/18 02:01 Last Admin: 01/21/18 11:47 Dose: Not Given Meropenem 1 gm/ Sodium (Chloride) 100 mls @ 100 mls/hr IVPB Q8 [facility] PRN Reason: Protocol Last Admin: 01/21/18 06:52 Dose: 100 mls/hr Potassium Chloride (Potassium Chloride 10 Meq/100 Ml) 10 meq in 100 mls @ 100 mls/hr IVPB Q3H [facility] Stop: 01/21/18 13:14 Last Admin: 01/21/18 11:44 Dose: 100 mls/hr Potassium Phosphate 15 mmole/ (Sodium Chloride) 255 mls @ 42.5 mls/hr IVPB ONCE ONE Stop: 01/21/18 16:19 Last Admin: 01/21/18 12:42 Dose: 42.5 mls/hr Insulin Aspart (Novolog) 0 unit SC ACHS [facility] PRN Reason: Protocol Last Admin: 01/21/18 11:48 Dose: Not Given Ketorolac Tromethamine (Toradol) 30 mg IVP Q6 [facility] Last Admin: 01/21/18 12:46 Dose: Not Given Modafinil (Provigil) 100 mg PO DAILY [facility] Last Admin: 01/21/18 09:39 Dose: 100 mg Ondansetron HCl (Zofran Inj) 4 mg IVP Q6 PRN PRN Reason: Nausea/Vomiting Last Admin: 01/20/18 14:54 Dose: 4 mg Oxycodone/Acetaminophen (Percocet 5/325 Mg Tab) 1 tab PO Q4H PRN PRN Reason: Pain, moderate (4-7) Stop: 01/23/18 10:11 Last Admin: 01/21/18 08:08 Dose: 1 tab - Labs Labs: 01/21/18 06:40 01/21/18 06:40 PT 17.8 SECONDS (9.7-12.2) H 01/19/18 20:07 INR 1.6 01/19/18 20:07 APTT 28 SECONDS (21-34) 01/19/18 20:07 - Constitutional Appears: Non-toxic, No Acute Distress - Head Exam Head Exam: ATRAUMATIC, NORMAL INSPECTION, NORMOCEPHALIC - Eye Exam Eye Exam: EOMI, Normal appearance, PERRL - ENT Exam ENT Exam: Mucous Membranes Moist - Respiratory Exam Respiratory Exam: Clear to Ausculation Bilateral, NORMAL BREATHING PATTERN. absent: Rales, Rhonchi, Wheezes, Respiratory Distress, Stridor - Cardiovascular Exam Cardiovascular Exam: REGULAR RHYTHM, RRR, +S1, +S2 - GI/Abdominal Exam GI & Abdominal Exam: Soft, Tenderness Additional comments: midline incision with rogers c/d/i colostomy bag clean with new stoma drain in place abdominal binder in place - Extremities Exam Extremities Exam: Normal Inspection. absent: Pedal Edema - Back Exam Back Exam: NORMAL INSPECTION - Neurological Exam Neurological Exam: Alert, Awake, Oriented x3 - Psychiatric Exam Psychiatric exam: Anxious, Depressed, Normal Affect - Skin Skin Exam: Intact, Normal Color, Warm Assessment and Plan - Assessment and Plan (Free Text) Assessment: Ex-lap with colon resection/anastomosis & transverse ostomy for perforated diverticulitis POD#2 Surgeon- Dr. Welch CT prior to surgical intervention (01/19): interval worsening of inflammatory changes at the distal descending colon and proximal sigmoid colon since the previous exam. interval worsening of free air and free fluid in the abdomen and upper pelvis since the previous study. Extraluminal fluid and air adjacent to sigmoid colon suspicious for early abscess formation. pain control with percocet and dilaudid IVF CLD Flagyl 500mg ivpb q8h Meropenem 1 gm q8h ID on consult, Dr. Viera, help appreciated stool studied negative blood culture- neg after 3 days Impaired Glucose Tolerance -HBA1C 6.2 -insulin sliding scale- low -accuchecks achs -hypoglycemia protocol -TSH: 1.19 -Lipid panel: Triglycerides-61, Cholesterol-136, LDL-81, HDL-31 Depression/Bipolar Disorder -c/w Modafanil -Psych consulted, Dr. Almeida, help appreciated Hypokalemia K+: 3.5 repleted continue to monitor Hx of Asthma -duonebs q6h prn Prophylaxis -SCDs -GI prophylaxis not indicated -CLD started by surgery <Nagi Hernandez - Last Filed: 01/22/18 16:29> Objective - Vital Signs/Intake and Output Vital Signs (last 24 hours): Temp Pulse Resp BP Pulse Ox 99.1 F 92 H 20 150/91 H 96 01/22/18 07:44 01/22/18 07:44 01/22/18 07:44 01/22/18 07:44 01/22/18 07:44 Intake and Output: 01/22/18 01/22/18 06:59 18:59 Intake Total 651 1340 Output Total 1210 Balance 651 130 - Medications Medications: Current Medications Albuterol/Ipratropium (Duoneb 3 Mg/0.5 Mg (3 Ml) Ud) 3 ml INH RQ6 [facility] Dextrose (Dextrose 50% Inj) 0 ml IV STAT PRN; Protocol PRN Reason: Hypoglycemia Protocol Dextrose (Glutose 15) 0 gm PO ONCE PRN; Protocol PRN Reason: Hypoglycemia Protocol Enoxaparin Sodium (Lovenox) 40 mg SC DAILY [facility] Last Admin: 01/22/18 10:36 Dose: 40 mg Glucagon (Glucagen Diagnostic Kit) 0 mg IM STAT PRN; Protocol PRN Reason: Hypoglycemia Protocol Metronidazole (Flagyl) 500 mg in 100 mls @ 100 mls/hr IVPB Q8 [facility] PRN Reason: Protocol Last Admin: 01/22/18 15:07 Dose: 100 mls/hr Dextrose (Dextrose 5% In Water 1000 Ml) 1,000 mls @ 0 mls/hr IV .Q0M PRN; Protocol; Per Protocol PRN Reason: Hypoglycemia Protocol Meropenem 1 gm/ Sodium (Chloride) 100 mls @ 100 mls/hr IVPB Q8 [facility] PRN Reason: Protocol Last Admin: 01/22/18 15:07 Dose: 100 mls/hr Insulin Aspart (Novolog) 0 unit SC ACHS [facility] PRN Reason: Protocol Last Admin: 01/22/18 12:07 Dose: Not Given Modafinil (Provigil) 100 mg PO DAILY [facility] Last Admin: 01/22/18 10:43 Dose: Not Given Ondansetron HCl (Zofran Inj) 4 mg IVP Q6 PRN PRN Reason: Nausea/Vomiting Last Admin: 01/20/18 14:54 Dose: 4 mg Oxycodone/Acetaminophen (Percocet 5/325 Mg Tab) 1 tab PO Q4H PRN PRN Reason: Pain, moderate (4-7) Stop: 01/23/18 10:11 Last Admin: 01/21/18 08:08 Dose: 1 tab - Labs Labs: 01/22/18 08:36 01/22/18 08:36 PT 17.8 SECONDS (9.7-12.2) H 01/19/18 20:07 INR 1.6 01/19/18 20:07 APTT 28 SECONDS (21-34) 01/19/18 20:07 Attending/Attestation - Attestation I have personally seen and examined this patient.: Yes I have fully participated in the care of the patient.: Yes I have reviewed all pertinent clinical information, including history, physical exam and plan: Yes Notes (Text): Seen and examined this morning.He is ambulating,taking liquid diet,feeling good, d/w RN he was able to change colostomy bag,no fever,no abdominal pain Patient is s/p Ex-lap with colon resection/anastomosis & transverse ostomy for perforated diverticulitis, continue meropenem and flagyl clear liquids,advance diet as per surgery d/w the resident and I agree with the documentation of the assessment and the plan
[2018-01-21] MEDS: Enoxaparin 40 mg Syringe SC SCH (14:00)
--- NOTE | 2018-01-21 20:00 | CP.PCM.PN ---
Subjective - Date & Time of Evaluation Date of Evaluation: 01/21/18 Time of Evaluation: 02:00 - Subjective Subjective: dictated Objective - Vital Signs/Intake and Output Vital Signs (last 24 hours): Temp Pulse Resp BP Pulse Ox 99.2 F 104 H 20 158/62 H 99 01/21/18 16:01 01/21/18 16:01 01/21/18 16:01 01/21/18 16:01 01/21/18 16:01 Intake and Output: 01/21/18 01/22/18 18:59 06:59 Intake Total 2250 Output Total 1450 Balance 800 - Medications Medications: Current Medications Albuterol/Ipratropium (Duoneb 3 Mg/0.5 Mg (3 Ml) Ud) 3 ml INH RQ6 PRN PRN Reason: Shortness of Breath Dextrose (Dextrose 50% Inj) 0 ml IV STAT PRN; Protocol PRN Reason: Hypoglycemia Protocol Dextrose (Glutose 15) 0 gm PO ONCE PRN; Protocol PRN Reason: Hypoglycemia Protocol Enoxaparin Sodium (Lovenox) 40 mg SC DAILY [facility] Last Admin: 01/21/18 14:00 Dose: 40 mg Glucagon (Glucagen Diagnostic Kit) 0 mg IM STAT PRN; Protocol PRN Reason: Hypoglycemia Protocol Metronidazole (Flagyl) 500 mg in 100 mls @ 100 mls/hr IVPB Q8 [facility] PRN Reason: Protocol Last Admin: 01/21/18 14:01 Dose: 100 mls/hr Dextrose (Dextrose 5% In Water 1000 Ml) 1,000 mls @ 0 mls/hr IV .Q0M PRN; Protocol; Per Protocol PRN Reason: Hypoglycemia Protocol Lactated Ringer's (Lactated Ringer's) 1,000 mls @ 150 mls/hr IV .Q6H40M [facility] Stop: 01/22/18 02:01 Last Admin: 01/21/18 11:47 Dose: Not Given Meropenem 1 gm/ Sodium (Chloride) 100 mls @ 100 mls/hr IVPB Q8 [facility] PRN Reason: Protocol Last Admin: 01/21/18 14:00 Dose: 100 mls/hr Insulin Aspart (Novolog) 0 unit SC ACHS [facility] PRN Reason: Protocol Last Admin: 01/21/18 17:03 Dose: Not Given Ketorolac Tromethamine (Toradol) 30 mg IVP Q6 [facility] Last Admin: 01/21/18 17:42 Dose: Not Given Modafinil (Provigil) 100 mg PO DAILY [facility] Last Admin: 01/21/18 09:39 Dose: 100 mg Ondansetron HCl (Zofran Inj) 4 mg IVP Q6 PRN PRN Reason: Nausea/Vomiting Last Admin: 01/20/18 14:54 Dose: 4 mg Oxycodone/Acetaminophen (Percocet 5/325 Mg Tab) 1 tab PO Q4H PRN PRN Reason: Pain, moderate (4-7) Stop: 01/23/18 10:11 Last Admin: 01/21/18 08:08 Dose: 1 tab - Labs Labs: 01/21/18 06:40 01/21/18 06:40 PT 17.8 SECONDS (9.7-12.2) H 01/19/18 20:07 INR 1.6 01/19/18 20:07 APTT 28 SECONDS (21-34) 01/19/18 20:07
--- NOTE | 2018-01-22 00:35 | PN ---
DATE: 01/21/2018 SUBJECTIVE: The patient was feeling lot better today. I had changed his antibiotics to Merrem as his blood pressure dropped to 99/67 yesterday, and he was having too much pain. He went into panic and he was seen by psychiatrist today. He was seen for rehab, as he may need IV antibiotics. We will check with Dr. Nolasco as he did have for the initial abscess and perforation, but we will continue antibiotics for now, and he will need a rehab. PHYSICAL EXAMINATION: VITAL SIGNS: T-max is 99.2, pulse 76, blood pressure 111/72, and respirations are 20. GENERAL: He is awake and alert. HEENT: Head is atraumatic. NECK: Supple. CHEST: He has bilateral rhonchi. I told him that we should add a respiratory treatment, but he is refusing for it, and he coughs up and then it is clears up. It is kind of difficult to convince him to get nebulizer treatment. HEART: S1 and S2 regular. ABDOMEN: Soft. There is a FATIMAH drain present. Surgical scar colostomy is present, which is probably going to start functioning, as I see some stool there. EXTREMITIES: Have no edema. He is a very tall [place] with 6 feet and 262 pounds. LABORATORY DATA: White count is 10.3 today, hemoglobin 11.4, hematocrit 32, platelet count is 192, and neutrophils are 76. Potassium is 3.5. ASSESSMENT AND PLAN: On further asking, he was saying that his GI symptoms have been present for 5 years. He has had a colonoscopy before, and he was told about diverticuli and GERD, and he was more vocal today, so it seems to be improving, still has the FATIMAH drain. There is no OR culture, and he had a perforated diverticuli with an abscess formation and is status post left descending colon partial colectomy and colostomy. He will continue antibiotics, meropenem and Flagyl at this time. Kia Viera MD
[2018-01-22] MEDS: Lactated Ringer's 1,000 ML IV SCH ×2 (01:08→06:16)
[2018-01-22] MEDS: Meropenem 1 GM in Sodium Chloride 0.9% 100 ML IVPB SCH ×4 (05:02→21:43)
[2018-01-22] MEDS: metroNIDAZOLE IV 500 mg/100 ml 500 MG/100 ML BAG IVPB SCH ×3 (06:09→21:44)
--- NOTE | 2018-01-22 06:34 | CP.PCM.PN ---
Subjective - Date & Time of Evaluation Date of Evaluation: 01/22/18 Time of Evaluation: 06:32 - Subjective Subjective: General Surgery - DR. Welch Pt S&E. XANDER. Pt states he has no pain. He has been OOB and ambulating in the halls. He is tolerating clear liquid diet. Colostomy with liquid output. No N/V, F/C, SOb/Cp. Objective - Vital Signs/Intake and Output Vital Signs (last 24 hours): Temp Pulse Resp BP Pulse Ox 99.4 F 99 H 20 147/77 98 01/21/18 23:47 01/21/18 23:47 01/21/18 23:47 01/21/18 23:47 01/21/18 23:47 Intake and Output: 01/21/18 01/22/18 18:59 06:59 Intake Total 2250 651 Output Total 1450 Balance 800 651 - Medications Medications: Current Medications Albuterol/Ipratropium (Duoneb 3 Mg/0.5 Mg (3 Ml) Ud) 3 ml INH RQ6 PRN PRN Reason: Shortness of Breath Dextrose (Dextrose 50% Inj) 0 ml IV STAT PRN; Protocol PRN Reason: Hypoglycemia Protocol Dextrose (Glutose 15) 0 gm PO ONCE PRN; Protocol PRN Reason: Hypoglycemia Protocol Enoxaparin Sodium (Lovenox) 40 mg SC DAILY [facility] Last Admin: 01/21/18 14:00 Dose: 40 mg Glucagon (Glucagen Diagnostic Kit) 0 mg IM STAT PRN; Protocol PRN Reason: Hypoglycemia Protocol Metronidazole (Flagyl) 500 mg in 100 mls @ 100 mls/hr IVPB Q8 [facility] PRN Reason: Protocol Last Admin: 01/22/18 06:09 Dose: 100 mls/hr Dextrose (Dextrose 5% In Water 1000 Ml) 1,000 mls @ 0 mls/hr IV .Q0M PRN; Protocol; Per Protocol PRN Reason: Hypoglycemia Protocol Meropenem 1 gm/ Sodium (Chloride) 100 mls @ 100 mls/hr IVPB Q8 [facility] PRN Reason: Protocol Last Admin: 01/22/18 05:02 Dose: 100 mls/hr Insulin Aspart (Novolog) 0 unit SC ACHS [facility] PRN Reason: Protocol Last Admin: 01/21/18 21:36 Dose: Not Given Ketorolac Tromethamine (Toradol) 30 mg IVP Q6 [facility] Last Admin: 01/22/18 00:30 Dose: Not Given Modafinil (Provigil) 100 mg PO DAILY [facility] Last Admin: 01/21/18 09:39 Dose: 100 mg Ondansetron HCl (Zofran Inj) 4 mg IVP Q6 PRN PRN Reason: Nausea/Vomiting Last Admin: 01/20/18 14:54 Dose: 4 mg Oxycodone/Acetaminophen (Percocet 5/325 Mg Tab) 1 tab PO Q4H PRN PRN Reason: Pain, moderate (4-7) Stop: 01/23/18 10:11 Last Admin: 01/21/18 08:08 Dose: 1 tab - Labs Labs: 01/21/18 06:40 01/21/18 06:40 PT 17.8 SECONDS (9.7-12.2) H 01/19/18 20:07 INR 1.6 01/19/18 20:07 APTT 28 SECONDS (21-34) 01/19/18 20:07 - Constitutional Appears: No Acute Distress - Head Exam Head Exam: ATRAUMATIC, NORMAL INSPECTION, NORMOCEPHALIC - ENT Exam ENT Exam: Mucous Membranes Moist - Respiratory Exam Respiratory Exam: NORMAL BREATHING PATTERN. absent: Respiratory Distress - GI/Abdominal Exam GI & Abdominal Exam: Soft, Tenderness (appropriately, incision c/d/i with rogers). absent: Distended, Firm, Guarding, Rebound Additional comments: liban drain with serosanguinous drainage, abdominal binder in place, Colostomy pink and viable with gas and serous output - Neurological Exam Neurological Exam: Alert, Oriented x3 - Psychiatric Exam Psychiatric exam: Normal Affect, Normal Mood - Skin Skin Exam: Dry, Intact Assessment and Plan - Assessment and Plan (Free Text) Assessment: 37m POD#3 s/p partial colectomy with primary anastomosis and transverse loop colostomy Plan: Continue clear liquid diet, poss. advance later today Encourage OOB/Ambulation Pain control prn Electrolyte repletion prn DVT prophylaxis Encourage OOB, Ambulation and IS DW Dr Welch
[2018-01-22] MEDS: (Novolog) Insulin Aspart, Recombinant 100 u/ml 10 ml vial SC SCH ×4 (07:37→21:50)
[2018-01-22 08:55] LABS: BASO # 0.1 K/uL (0.0-0.2); BASO % 0.7 % (0.0-2.0); EOS # 0.3 K/uL (0.0-0.7); EOS % 2.6 % (0.0-4.0); HEMOGLOBIN 11.2 g/dL (12.0-18.0); LYMPH # 0.9 K/uL (1.0-4.3); LYMPH % 8.3 % (20.0-40.0); MEAN CELL VOLUME 89.7 fL (80.0-94.0); MEAN CORPUSCULAR HGB CONC 35.7 g/dL (33.0-37.0); MONO # 1.3 K/uL (0.0-0.8); MONO % 12.1 % (0.0-10.0); NEUT # 8.3 K/uL (1.8-7.0); NEUT % 76.3 % (50.0-75.0); PLATELET COUNT 238 K/uL (130-400); RBC 3.51 Mil/uL (4.40-5.90); RED CELL DISTRIBUTION WIDTH 12.9 % (11.5-14.5); WHITE BLOOD COUNT 10.9 K/uL (4.8-10.8)
[2018-01-22 09:15] LABS: ALB/GLOB RATIO 0.8 (1.0-2.1); ALT/SGPT 14 U/L (21-72); AST/SGOT 26 U/L (17-59); BLOOD UREA NITROGEN 11 mg/dL (9-20); CALCIUM 8.3 mg/dl (8.6-10.4); GFR AFRICAN-AMERICAN > 60; GFR NON-AFRICAN AMERICAN > 60
[2018-01-22] MEDS ORDERED: Potassium Chloride 20 mEq ER Tab PO ONE (09:52)
[2018-01-22 10:24] LABS: EOSINOPHIL 1 % (0-4); LYMPHOCYTE 9 % (20-40); MONOCYTE 11 % (0-10); NEUTROPHIL 79 % (50-75); PLATELET ESTIMATE NORMAL (NORMAL); TOTAL CELLS COUNTED 100
[2018-01-22] MEDS: Enoxaparin 40 mg Syringe SC SCH (10:36)
--- NOTE | 2018-01-22 15:27 | CP.PCM.PN ---
<SatyaShelliana paula E - Last Filed: 01/22/18 15:29> Subjective - Date & Time of Evaluation Date of Evaluation: 01/22/18 Time of Evaluation: 08:40 - Subjective Subjective: Medicine progress note ( Dr. Hernandez's service) Patient was seen and examined at bedside. Patient was resting comfortably in bed in no acute distress. Patient is s/p partial colectomy with primary anastomosis and transverse loop colostomy POD #3. Patient denies any acute issues and denies any pain. Patient denies fever, chills, nausea, vomiting, abdominal pain, chest pain, sob, palpitations. Patient is ambulating and out of bed. Patient is having a great output in the colostomy bag. Objective - Vital Signs/Intake and Output Vital Signs (last 24 hours): Temp Pulse Resp BP Pulse Ox 99.1 F 92 H 20 150/91 H 96 01/22/18 07:44 01/22/18 07:44 01/22/18 07:44 01/22/18 07:44 01/22/18 07:44 Intake and Output: 01/22/18 01/22/18 06:59 18:59 Intake Total 651 1340 Output Total 1210 Balance 651 130 - Medications Medications: Current Medications Albuterol/Ipratropium (Duoneb 3 Mg/0.5 Mg (3 Ml) Ud) 3 ml INH RQ6 PRN PRN Reason: Shortness of Breath Dextrose (Dextrose 50% Inj) 0 ml IV STAT PRN; Protocol PRN Reason: Hypoglycemia Protocol Dextrose (Glutose 15) 0 gm PO ONCE PRN; Protocol PRN Reason: Hypoglycemia Protocol Enoxaparin Sodium (Lovenox) 40 mg SC DAILY [facility] Last Admin: 01/22/18 10:36 Dose: 40 mg Glucagon (Glucagen Diagnostic Kit) 0 mg IM STAT PRN; Protocol PRN Reason: Hypoglycemia Protocol Metronidazole (Flagyl) 500 mg in 100 mls @ 100 mls/hr IVPB Q8 [facility] PRN Reason: Protocol Last Admin: 01/22/18 15:07 Dose: 100 mls/hr Dextrose (Dextrose 5% In Water 1000 Ml) 1,000 mls @ 0 mls/hr IV .Q0M PRN; Protocol; Per Protocol PRN Reason: Hypoglycemia Protocol Meropenem 1 gm/ Sodium (Chloride) 100 mls @ 100 mls/hr IVPB Q8 [facility] PRN Reason: Protocol Last Admin: 01/22/18 15:07 Dose: 100 mls/hr Insulin Aspart (Novolog) 0 unit SC ACHS [facility] PRN Reason: Protocol Last Admin: 01/22/18 12:07 Dose: Not Given Modafinil (Provigil) 100 mg PO DAILY [facility] Last Admin: 01/22/18 10:43 Dose: Not Given Ondansetron HCl (Zofran Inj) 4 mg IVP Q6 PRN PRN Reason: Nausea/Vomiting Last Admin: 01/20/18 14:54 Dose: 4 mg Oxycodone/Acetaminophen (Percocet 5/325 Mg Tab) 1 tab PO Q4H PRN PRN Reason: Pain, moderate (4-7) Stop: 01/23/18 10:11 Last Admin: 01/21/18 08:08 Dose: 1 tab - Labs Labs: 01/22/18 08:36 01/22/18 08:36 PT 17.8 SECONDS (9.7-12.2) H 01/19/18 20:07 INR 1.6 01/19/18 20:07 APTT 28 SECONDS (21-34) 01/19/18 20:07 - Constitutional Appears: Well, No Acute Distress - Head Exam Head Exam: ATRAUMATIC, NORMAL INSPECTION - Eye Exam Eye Exam: EOMI, Normal appearance - ENT Exam ENT Exam: Mucous Membranes Moist - Respiratory Exam Respiratory Exam: Clear to Ausculation Bilateral, Wheezes, NORMAL BREATHING PATTERN. absent: Prolonged Expiratory Phase, Rhonchi, Respiratory Distress - Cardiovascular Exam Cardiovascular Exam: REGULAR RHYTHM, +S1, +S2 - GI/Abdominal Exam Additional comments: midline incision with rogers c/d/i colostomy bag clean with new stoma drain in place abdominal binder in place - Extremities Exam Extremities Exam: Normal Inspection. absent: Calf Tenderness, Pedal Edema - Neurological Exam Neurological Exam: Alert, Awake, Oriented x3 - Psychiatric Exam Psychiatric exam: Normal Affect - Skin Skin Exam: Normal Color Assessment and Plan (1) Diverticulitis of colon with perforation Assessment & Plan: General surgery, Dr. Welch * s/p partial colectomy with primary anastomosis and transverse loop colostomy POD #3. ID, Dr. Viera * Recommendation for PICC line, patient will need a total of 2 weeks of antibiotics post-surgery Imaging/labs: CT prior to surgical intervention (01/19): interval worsening of inflammatory changes at the distal descending colon and proximal sigmoid colon since the previous exam. interval worsening of free air and free fluid in the abdomen and upper pelvis since the previous study. Extraluminal fluid and air adjacent to sigmoid colon suspicious for early abscess formation. Blood culture and stool culture: negative Medications: * Flagyl 500mg ivpb q8h * Meropenem 1 gm q8h * Percocet 1 tab PO Q4H PRN * Zofran 4mg IV Q6H PRN for nausea Status: Acute (2) Glucose intolerance (impaired glucose tolerance) Assessment & Plan: -HBA1C 6.2 -accuchecks achs -insulin sliding scale- low -hypoglycemia protocol -TSH: 1.19 -Lipid panel: Triglycerides-61, Cholesterol-136, LDL-81, HDL-31 Status: Acute (3) Psychiatric disorder Assessment & Plan: Both Depression and bipolar -Psych consulted, Dr. Almeida, help appreciated - Continue Modafinil 100mg PO daily Status: Acute (4) Hypokalemia Assessment & Plan: Repleted appropriately Continue to monitor with labs Status: Acute (5) History of asthma Assessment & Plan: Duonebs 3ml INH RQ6H PRN Status: Acute (6) Prophylactic measure Assessment & Plan: -SCDs, Lovenox 40mg SC daily -GI prophylaxis not indicated - Advance diet as tolerated as per surgery Disposition: Awaiting general surgery clearance All plans and management discussed with Dr. Hernandez Status: Acute <Nagi Hernandez - Last Filed: 01/22/18 17:03> Objective - Vital Signs/Intake and Output Vital Signs (last 24 hours): Temp Pulse Resp BP Pulse Ox 99.1 F 92 H 20 150/91 H 96 01/22/18 07:44 01/22/18 07:44 01/22/18 07:44 01/22/18 07:44 01/22/18 07:44 Intake and Output: 01/22/18 01/22/18 06:59 18:59 Intake Total 651 1340 Output Total 1210 Balance 651 130 - Medications Medications: Current Medications Albuterol/Ipratropium (Duoneb 3 Mg/0.5 Mg (3 Ml) Ud) 3 ml INH RQ6 [facility] Dextrose (Dextrose 50% Inj) 0 ml IV STAT PRN; Protocol PRN Reason: Hypoglycemia Protocol Dextrose (Glutose 15) 0 gm PO ONCE PRN; Protocol PRN Reason: Hypoglycemia Protocol Enoxaparin Sodium (Lovenox) 40 mg SC DAILY [facility] Last Admin: 01/22/18 10:36 Dose: 40 mg Glucagon (Glucagen Diagnostic Kit) 0 mg IM STAT PRN; Protocol PRN Reason: Hypoglycemia Protocol Metronidazole (Flagyl) 500 mg in 100 mls @ 100 mls/hr IVPB Q8 [facility] PRN Reason: Protocol Last Admin: 01/22/18 15:07 Dose: 100 mls/hr Dextrose (Dextrose 5% In Water 1000 Ml) 1,000 mls @ 0 mls/hr IV .Q0M PRN; Protocol; Per Protocol PRN Reason: Hypoglycemia Protocol Meropenem 1 gm/ Sodium (Chloride) 100 mls @ 100 mls/hr IVPB Q8 [facility] PRN Reason: Protocol Last Admin: 01/22/18 15:07 Dose: 100 mls/hr Insulin Aspart (Novolog) 0 unit SC ACHS [facility] PRN Reason: Protocol Last Admin: 01/22/18 12:07 Dose: Not Given Modafinil (Provigil) 100 mg PO DAILY [facility] Last Admin: 01/22/18 10:43 Dose: Not Given Ondansetron HCl (Zofran Inj) 4 mg IVP Q6 PRN PRN Reason: Nausea/Vomiting Last Admin: 01/20/18 14:54 Dose: 4 mg Oxycodone/Acetaminophen (Percocet 5/325 Mg Tab) 1 tab PO Q4H PRN PRN Reason: Pain, moderate (4-7) Stop: 01/23/18 10:11 Last Admin: 01/21/18 08:08 Dose: 1 tab - Labs Labs: 01/22/18 08:36 01/22/18 08:36 PT 17.8 SECONDS (9.7-12.2) H 01/19/18 20:07 INR 1.6 01/19/18 20:07 APTT 28 SECONDS (21-34) 01/19/18 20:07 Attending/Attestation - Attestation I have personally seen and examined this patient.: Yes I have fully participated in the care of the patient.: Yes I have reviewed all pertinent clinical information, including history, physical exam and plan: Yes Notes (Text): Seen and examined by me,No complain,taking liquids,no fever,no abdominal pain He is ambulating, continue meropenem and flagyl. D/W Dr Viera.She will talk to the surgeon about the finding.Planning for atleast two weeks of IV antibiotics we will ask for a pic line . on liquids,advance diet as per surgery d/w the resident and I agree with the documentation of the assessment and the plan
[2018-01-22] MEDS: Oxycodone/Acetaminophen 5/325 mg Tab PO PRN (18:11)
[2018-01-22] MEDS: Albuterol-Ipratrop 3 mg / 0.5 (3 ml) UD INH SCH (19:55)
--- NOTE | 2018-01-22 20:15 | CP.PCM.PN ---
Subjective - Date & Time of Evaluation Date of Evaluation: 01/22/18 Time of Evaluation: 02:00 - Subjective Subjective: dictated Objective - Vital Signs/Intake and Output Vital Signs (last 24 hours): Temp Pulse Resp BP Pulse Ox 100.2 F H 89 20 145/88 96 01/22/18 16:00 01/22/18 16:00 01/22/18 16:00 01/22/18 16:00 01/22/18 16:00 Intake and Output: 01/22/18 01/23/18 18:59 06:59 Intake Total 2020 Output Total 1840 Balance 180 - Medications Medications: Current Medications Albuterol/Ipratropium (Duoneb 3 Mg/0.5 Mg (3 Ml) Ud) 3 ml INH RQ6 [facility] Last Admin: 01/22/18 19:55 Dose: Not Given Dextrose (Dextrose 50% Inj) 0 ml IV STAT PRN; Protocol PRN Reason: Hypoglycemia Protocol Dextrose (Glutose 15) 0 gm PO ONCE PRN; Protocol PRN Reason: Hypoglycemia Protocol Enoxaparin Sodium (Lovenox) 40 mg SC DAILY [facility] Last Admin: 01/22/18 10:36 Dose: 40 mg Glucagon (Glucagen Diagnostic Kit) 0 mg IM STAT PRN; Protocol PRN Reason: Hypoglycemia Protocol Metronidazole (Flagyl) 500 mg in 100 mls @ 100 mls/hr IVPB Q8 [facility] PRN Reason: Protocol Last Admin: 01/22/18 15:07 Dose: 100 mls/hr Dextrose (Dextrose 5% In Water 1000 Ml) 1,000 mls @ 0 mls/hr IV .Q0M PRN; Protocol; Per Protocol PRN Reason: Hypoglycemia Protocol Meropenem 1 gm/ Sodium (Chloride) 100 mls @ 100 mls/hr IVPB Q8 [facility] PRN Reason: Protocol Last Admin: 01/22/18 15:07 Dose: 100 mls/hr Insulin Aspart (Novolog) 0 unit SC ACHS [facility] PRN Reason: Protocol Last Admin: 01/22/18 17:27 Dose: Not Given Modafinil (Provigil) 100 mg PO DAILY [facility] Last Admin: 01/22/18 10:43 Dose: Not Given Ondansetron HCl (Zofran Inj) 4 mg IVP Q6 PRN PRN Reason: Nausea/Vomiting Last Admin: 01/20/18 14:54 Dose: 4 mg Oxycodone/Acetaminophen (Percocet 5/325 Mg Tab) 1 tab PO Q4H PRN PRN Reason: Pain, moderate (4-7) Stop: 01/23/18 10:11 Last Admin: 01/22/18 18:11 Dose: 1 tab - Labs Labs: 01/22/18 08:36 01/22/18 08:36 PT 17.8 SECONDS (9.7-12.2) H 01/19/18 20:07 INR 1.6 01/19/18 20:07 APTT 28 SECONDS (21-34) 01/19/18 20:07
--- NOTE | 2018-01-22 22:14 | PN ---
DATE: 01/22/2018 SUBJECTIVE: The patient was seen and the patient was offering no new complaints. He was feeling better he said. He denied any fevers. No chills. He did had this colostomy, which was functioning, but it had brownish fluid, probably collected blood, it does not have solid as yet. The FATIMAH drain also had serosanguineous fluid. The patient was asking me when that is coming out and I had to tell him that when it does not have much draining. PHYSICAL EXAMINATION: VITAL SIGNS: T-max is 99.1 today, pulse 92, blood pressure 150/91, respirations are 20. HEENT: Head is atraumatic and normocephalic. NECK: Supple. LUNGS: Clear. No crackles or rales present. Decreased breath sounds on both bases, otherwise. HEART: S1 and S2 is regular. ABDOMEN: Soft. Nontender. No guarding. No rigidity present, but he has postop colectomy and left side he has FATIMAH drain. EXTREMITIES: Have no edema. LABORATORY DATA: White count is 10.9, hemoglobin 11.2, hematocrit 31.5, platelet count 238 and the patient is kind of . ASSESSMENT AND PLAN: At this time, we will continue with the meropenem. His potassium was low, they supplemented and he will probably need IV antibiotics later. We will discuss with Dr. Nolasco on Wednesday as he did have a diverticular abscess and status post surgery. I will continue and reorder Merrem and Flagyl. Kia Viera MD
[2018-01-23] MEDS: Oxycodone/Acetaminophen 5/325 mg Tab PO PRN (01:09)
[2018-01-23] MEDS: Albuterol-Ipratrop 3 mg / 0.5 (3 ml) UD INH SCH ×4 (01:11→20:04)
[2018-01-23] MEDS: Meropenem 1 GM in Sodium Chloride 0.9% 100 ML IVPB SCH ×3 (05:18→22:55)
[2018-01-23] MEDS: metroNIDAZOLE IV 500 mg/100 ml 500 MG/100 ML BAG IVPB SCH ×3 (06:52→21:42)
[2018-01-23] MEDS: (Novolog) Insulin Aspart, Recombinant 100 u/ml 10 ml vial SC SCH ×4 (08:21→21:45)
[2018-01-23 09:23] LABS: BASO # 0.1 K/uL (0.0-0.2); BASO % 0.8 % (0.0-2.0); EOS # 0.3 K/uL (0.0-0.7); EOS % 2.9 % (0.0-4.0); HEMOGLOBIN 11.7 g/dL (12.0-18.0); LYMPH % 11.6 % (20.0-40.0); MEAN CELL VOLUME 89.8 fL (80.0-94.0); MEAN CORPUSCULAR HEMOGLOBIN 31.4 pg (27.0-31.0); MEAN CORPUSCULAR HGB CONC 34.9 g/dL (33.0-37.0); MEAN PLATELET VOLUME 7.6 fL (7.2-11.7); MONO % 11.4 % (0.0-10.0); NEUT # 6.5 K/uL (1.8-7.0); NEUT % 73.3 % (50.0-75.0); RBC 3.74 Mil/uL (4.40-5.90); RED CELL DISTRIBUTION WIDTH 12.7 % (11.5-14.5); WHITE BLOOD COUNT 8.8 K/uL (4.8-10.8)
[2018-01-23 09:49] LABS: ALB/GLOB RATIO 0.8 (1.0-2.1); ALBUMIN 3.2 g/dL (3.5-5.0); ALT/SGPT 20 U/L (21-72); AST/SGOT 43 U/L (17-59); BLOOD UREA NITROGEN 9 mg/dL (9-20); CALCIUM 8.7 mg/dl (8.6-10.4); GFR AFRICAN-AMERICAN > 60; GFR NON-AFRICAN AMERICAN > 60
--- NOTE | 2018-01-23 10:40 | CP.PCM.PN ---
Subjective - Date & Time of Evaluation Date of Evaluation: 01/23/18 Time of Evaluation: 07:40 - Subjective Subjective: Patietn seen and examined at bedside this AM. NO adverse events overnight. Patient denies any nausea and vomiting but didn't have much full liquid PO intake because he didn't like the food. some liquid stool output in his ostomy. Pain well controlled Objective - Vital Signs/Intake and Output Vital Signs (last 24 hours): Temp Pulse Resp BP Pulse Ox 99.8 F H 76 20 135/76 98 01/22/18 23:52 01/22/18 23:52 01/22/18 23:52 01/22/18 23:52 01/22/18 23:52 Intake and Output: 01/23/18 01/23/18 06:59 18:59 Intake Total 680 450 Output Total 600 980 Balance 80 -530 - Medications Medications: Current Medications Acetaminophen (Tylenol 325mg Tab) 650 mg PO Q6 PRN PRN Reason: Fever >100.4 F Albuterol/Ipratropium (Duoneb 3 Mg/0.5 Mg (3 Ml) Ud) 3 ml INH RQ6 [facility] Last Admin: 01/23/18 07:45 Dose: 3 ml Dextrose (Dextrose 50% Inj) 0 ml IV STAT PRN; Protocol PRN Reason: Hypoglycemia Protocol Dextrose (Glutose 15) 0 gm PO ONCE PRN; Protocol PRN Reason: Hypoglycemia Protocol Enoxaparin Sodium (Lovenox) 40 mg SC DAILY [facility] Last Admin: 01/22/18 10:36 Dose: 40 mg Glucagon (Glucagen Diagnostic Kit) 0 mg IM STAT PRN; Protocol PRN Reason: Hypoglycemia Protocol Metronidazole (Flagyl) 500 mg in 100 mls @ 100 mls/hr IVPB Q8 [facility] PRN Reason: Protocol Last Admin: 01/23/18 06:52 Dose: 100 mls/hr Dextrose (Dextrose 5% In Water 1000 Ml) 1,000 mls @ 0 mls/hr IV .Q0M PRN; Protocol; Per Protocol PRN Reason: Hypoglycemia Protocol Meropenem 1 gm/ Sodium (Chloride) 100 mls @ 100 mls/hr IVPB Q8 [facility] PRN Reason: Protocol Last Admin: 01/23/18 05:18 Dose: 100 mls/hr Insulin Aspart (Novolog) 0 unit SC ACHS [facility] PRN Reason: Protocol Last Admin: 01/23/18 08:21 Dose: Not Given Modafinil (Provigil) 100 mg PO DAILY [facility] Last Admin: 01/22/18 10:43 Dose: Not Given Ondansetron HCl (Zofran Inj) 4 mg IVP Q6 PRN PRN Reason: Nausea/Vomiting Last Admin: 01/20/18 14:54 Dose: 4 mg - Labs Labs: 01/23/18 09:16 01/23/18 09:16 PT 17.8 SECONDS (9.7-12.2) H 01/19/18 20:07 INR 1.6 01/19/18 20:07 APTT 28 SECONDS (21-34) 01/19/18 20:07 - Constitutional Appears: Well, Non-toxic, No Acute Distress - Head Exam Head Exam: ATRAUMATIC, NORMOCEPHALIC - Eye Exam Eye Exam: Normal appearance. absent: Conjunctival injection, Scleral icterus - ENT Exam ENT Exam: Mucous Membranes Moist, Normal Oropharynx - Respiratory Exam Respiratory Exam: NORMAL BREATHING PATTERN. absent: Accessory Muscle Use, Respiratory Distress - GI/Abdominal Exam GI & Abdominal Exam: Soft, Tenderness (hermelinda-incisional). absent: Distended Additional comments: colostomy pink, patent, and productive of small amount of liquid stool. Ramses drain in place with sero-sanguinous output - Extremities Exam Extremities Exam: absent: Calf Tenderness, Pedal Edema, Tenderness - Neurological Exam Neurological Exam: Alert, Awake, Oriented x3 Assessment and Plan - Assessment and Plan (Free Text) Assessment: 37M POD#4 s/p partial descending colectomy with primary anastamosis and diverting colostomy Plan: Monitor colostomy and ramses drain output Advance diet to soft diet and regular if tolerating Continue to encourage ambulation and incentive spirometer use PRN pain medication discussed with Dr. Yuri Fair, PGY2
[2018-01-23] MEDS: Enoxaparin 40 mg Syringe SC SCH (10:43)
[2018-01-23] MEDS ORDERED: Tramadol 25 mg PO PRN ×2 (10:47→16:59)
--- NOTE | 2018-01-23 15:53 | CP.PCM.PN ---
<SatyaShelliana paula E - Last Filed: 01/23/18 16:43> Subjective - Date & Time of Evaluation Date of Evaluation: 01/23/18 Time of Evaluation: 07:40 - Subjective Subjective: Medicine progress note ( Dr. Hernandez's service) Patient was seen and examined at bedside. Patient was resting comfortably in bed in no acute distress. Patient is s/p partial colectomy with primary anastomosis and transverse loop colostomy POD #4. Patient denies any acute issues and denies any pain. Patient denies fever, chills, nausea, vomiting, abdominal pain, chest pain, sob, palpitations. Patient is ambulating and out of bed. Objective - Vital Signs/Intake and Output Vital Signs (last 24 hours): Temp Pulse Resp BP Pulse Ox 99.9 F H 85 20 156/90 H 97 01/23/18 08:00 01/23/18 08:00 01/23/18 08:00 01/23/18 08:00 01/23/18 08:00 Intake and Output: 01/23/18 01/23/18 06:59 18:59 Intake Total 680 600 Output Total 600 1290 Balance 80 -690 - Medications Medications: Current Medications Acetaminophen (Tylenol 325mg Tab) 650 mg PO Q6 PRN PRN Reason: Fever >100.4 F Albuterol/Ipratropium (Duoneb 3 Mg/0.5 Mg (3 Ml) Ud) 3 ml INH RQ6 [facility] Last Admin: 01/23/18 13:00 Dose: Not Given Dextrose (Dextrose 50% Inj) 0 ml IV STAT PRN; Protocol PRN Reason: Hypoglycemia Protocol Dextrose (Glutose 15) 0 gm PO ONCE PRN; Protocol PRN Reason: Hypoglycemia Protocol Enoxaparin Sodium (Lovenox) 40 mg SC DAILY [facility] Last Admin: 01/23/18 10:43 Dose: 40 mg Glucagon (Glucagen Diagnostic Kit) 0 mg IM STAT PRN; Protocol PRN Reason: Hypoglycemia Protocol Metronidazole (Flagyl) 500 mg in 100 mls @ 100 mls/hr IVPB Q8 [facility] PRN Reason: Protocol Last Admin: 01/23/18 14:29 Dose: 100 mls/hr Dextrose (Dextrose 5% In Water 1000 Ml) 1,000 mls @ 0 mls/hr IV .Q0M PRN; Protocol; Per Protocol PRN Reason: Hypoglycemia Protocol Meropenem 1 gm/ Sodium (Chloride) 100 mls @ 100 mls/hr IVPB Q8 [facility] PRN Reason: Protocol Last Admin: 01/23/18 13:22 Dose: 100 mls/hr Insulin Aspart (Novolog) 0 unit SC ACHS [facility] PRN Reason: Protocol Last Admin: 01/23/18 11:58 Dose: Not Given Modafinil (Provigil) 100 mg PO DAILY [facility] Last Admin: 01/23/18 10:43 Dose: Not Given Ondansetron HCl (Zofran Inj) 4 mg IVP Q6 PRN PRN Reason: Nausea/Vomiting Last Admin: 01/20/18 14:54 Dose: 4 mg Tramadol HCl (Ultram) 25 mg PO TID PRN PRN Reason: Pain, moderate (4-7) Last Admin: 01/23/18 13:20 Dose: 25 mg - Labs Labs: 01/23/18 09:16 01/23/18 09:16 PT 17.8 SECONDS (9.7-12.2) H 01/19/18 20:07 INR 1.6 01/19/18 20:07 APTT 28 SECONDS (21-34) 01/19/18 20:07 - Constitutional Appears: Well, No Acute Distress - Head Exam Head Exam: ATRAUMATIC - Eye Exam Eye Exam: EOMI - ENT Exam ENT Exam: Mucous Membranes Moist - Respiratory Exam Respiratory Exam: Clear to Ausculation Bilateral, NORMAL BREATHING PATTERN. absent: Accessory Muscle Use, Chest Wall Tenderness, Decreased Breath Sounds, Prolonged Expiratory Phase, Rhonchi, Wheezes, Respiratory Distress, Stridor - Cardiovascular Exam Cardiovascular Exam: REGULAR RHYTHM, +S1, +S2. absent: Murmur - GI/Abdominal Exam GI & Abdominal Exam: Soft, Normal Bowel Sounds. absent: Distended, Firm, Guarding, Rigid, Tenderness Additional comments: Midline incision with rogers c/d/i colostomy bag clean with new stoma drain in place Abdominal binder in place - Extremities Exam Extremities Exam: Normal Inspection. absent: Calf Tenderness, Pedal Edema - Neurological Exam Neurological Exam: Alert, Awake, Oriented x3 - Psychiatric Exam Psychiatric exam: Normal Affect - Skin Skin Exam: Normal Color Assessment and Plan (1) Diverticulitis of colon with perforation Assessment & Plan: General surgery, Dr. Welch * s/p partial colectomy with primary anastomosis and transverse loop colostomy POD #3. ID, Dr. Viera * Recommendation for PICC line, patient will need a total of 2 weeks of antibiotics post-surgery Imaging/labs: CT prior to surgical intervention (01/19): interval worsening of inflammatory changes at the distal descending colon and proximal sigmoid colon since the previous exam. interval worsening of free air and free fluid in the abdomen and upper pelvis since the previous study. Extraluminal fluid and air adjacent to sigmoid colon suspicious for early abscess formation. Blood culture and stool culture: negative Medications: * Flagyl 500mg ivpb q8h * Meropenem 1 gm q8h * Percocet 1 tab PO Q4H PRN * Zofran 4mg IV Q6H PRN for nausea Status: Acute (2) Glucose intolerance (impaired glucose tolerance) Assessment & Plan: -HBA1C 6.2 -accuchecks achs -insulin sliding scale- low -hypoglycemia protocol -TSH: 1.19 -Lipid panel: Triglycerides-61, Cholesterol-136, LDL-81, HDL-31 Status: Acute (3) Psychiatric disorder Assessment & Plan: Both Depression and bipolar -Psych consulted, Dr. Almeida, help appreciated - Continue Modafinil 100mg PO daily Status: Acute (4) Hypokalemia Assessment & Plan: Resolved Repleted appropriately Continue to monitor with labs Status: Acute (5) History of asthma Assessment & Plan: Duonebs 3ml INH RQ6H PRN Status: Acute (6) Postoperative fever Assessment & Plan: Tmax: 100.2 No leukocytosis Procalcitonin: 0.44 Blood culture negative for 5 days and stool culture negative Tylenol 650mg PO q6h prn * Flagyl 500mg ivpb q8h * Meropenem 1 gm q8h * Will continue to monitor Status: Acute (7) Prophylactic measure Assessment & Plan: -SCDs, Lovenox 40mg SC daily -GI prophylaxis not indicated - Advance diet as tolerated as per surgery Disposition: Awaiting general surgery clearance All plans and management discussed with Dr. Hernandez Status: Acute <Nagi Hernandez - Last Filed: 01/23/18 20:26> Objective - Vital Signs/Intake and Output Vital Signs (last 24 hours): Temp Pulse Resp BP Pulse Ox 98.9 F 80 20 150/92 H 99 01/23/18 15:25 01/23/18 15:25 01/23/18 15:25 01/23/18 15:25 01/23/18 15:25 Intake and Output: 01/23/18 01/24/18 18:59 06:59 Intake Total 600 Output Total 1290 Balance -690 - Medications Medications: Current Medications Acetaminophen (Tylenol 325mg Tab) 650 mg PO Q6 PRN PRN Reason: Fever >100.4 F Albuterol/Ipratropium (Duoneb 3 Mg/0.5 Mg (3 Ml) Ud) 3 ml INH RQ6 [facility] Last Admin: 01/23/18 20:04 Dose: 3 ml Dextrose (Dextrose 50% Inj) 0 ml IV STAT PRN; Protocol PRN Reason: Hypoglycemia Protocol Dextrose (Glutose 15) 0 gm PO ONCE PRN; Protocol PRN Reason: Hypoglycemia Protocol Enoxaparin Sodium (Lovenox) 40 mg SC DAILY [facility] Last Admin: 01/23/18 10:43 Dose: 40 mg Glucagon (Glucagen Diagnostic Kit) 0 mg IM STAT PRN; Protocol PRN Reason: Hypoglycemia Protocol Metronidazole (Flagyl) 500 mg in 100 mls @ 100 mls/hr IVPB Q8 [facility] PRN Reason: Protocol Last Admin: 01/23/18 14:29 Dose: 100 mls/hr Dextrose (Dextrose 5% In Water 1000 Ml) 1,000 mls @ 0 mls/hr IV .Q0M PRN; Protocol; Per Protocol PRN Reason: Hypoglycemia Protocol Meropenem 1 gm/ Sodium (Chloride) 100 mls @ 100 mls/hr IVPB Q8 [facility] PRN Reason: Protocol Last Admin: 01/23/18 13:22 Dose: 100 mls/hr Dextrose/Lactated Ringer's (Dextrose 5%/Lactated Ringer's) 1,000 mls @ 100 mls/ hr IV .Q10H [facility] Insulin Aspart (Novolog) 0 unit SC ACHS [facility] PRN Reason: Protocol Last Admin: 01/23/18 16:46 Dose: Not Given Modafinil (Provigil) 100 mg PO DAILY [facility] Last Admin: 01/23/18 10:43 Dose: Not Given Ondansetron HCl (Zofran Inj) 4 mg IVP Q6 PRN PRN Reason: Nausea/Vomiting Last Admin: 01/20/18 14:54 Dose: 4 mg Simethicone (Mylicon Chew Tab) 80 mg PO ACHS PRN PRN Reason: GI distress Tramadol HCl (Ultram) 25 mg PO Q6H PRN PRN Reason: Pain, moderate (4-7) - Labs Labs: 01/23/18 09:16 01/23/18 09:16 PT 17.8 SECONDS (9.7-12.2) H 01/19/18 20:07 INR 1.6 01/19/18 20:07 APTT 28 SECONDS (21-34) 01/19/18 20:07 Attending/Attestation - Attestation I have personally seen and examined this patient.: Yes I have fully participated in the care of the patient.: Yes I have reviewed all pertinent clinical information, including history, physical exam and plan: Yes Notes (Text): Seen and examined by me c/o abdominal pain after lunch.diet advanced to soft today I will keep him NPO,seen by surgery resident continue meropenem and flagyl. D/W Dr Viera.She will talk to the surgeon about the finding.Planning for atleast two weeks of IV antibiotics we will ask for a pic line . d/w the resident .I agree with the documentation of the resident's assessment and the plan
[2018-01-23] MEDS ORDERED: Simethicone 80 mg Chewtab PO STA (16:56)
[2018-01-23] MEDS ORDERED: Simethicone 80 mg Chewtab PO PRN (16:57)
[2018-01-23] MEDS: Dextrose 5%/Lactated Ringer's 1,000 ML IV SCH (17:00)
[2018-01-24] MEDS: Albuterol-Ipratrop 3 mg / 0.5 (3 ml) UD INH SCH ×4 (01:45→22:29)
[2018-01-24] MEDS: Dextrose 5%/Lactated Ringer's 1,000 ML IV SCH ×2 (04:02→23:00)
[2018-01-24] MEDS: Meropenem 1 GM in Sodium Chloride 0.9% 100 ML IVPB SCH ×3 (05:24→22:52)
[2018-01-24] MEDS: metroNIDAZOLE IV 500 mg/100 ml 500 MG/100 ML BAG IVPB SCH ×3 (06:27→21:44)
[2018-01-24] MEDS: (Novolog) Insulin Aspart, Recombinant 100 u/ml 10 ml vial SC SCH ×4 (08:00→21:47)
--- NOTE | 2018-01-24 08:04 | CP.PCM.PN ---
Subjective - Date & Time of Evaluation Date of Evaluation: 01/24/18 Time of Evaluation: 08:01 - Subjective Subjective: PGY-1 surgery progress note for Dr Welch. No acute events noted overnight. Patient stated he was not in any pain and that he has been ambulating without difficulty. Patient concerned about colostomy care as he stated that he lives in his car. He did not offer any other complaints. There was some liquid stool output in his ostomy. Patient denied any nausea and vomiting. Objective - Vital Signs/Intake and Output Vital Signs (last 24 hours): Temp Pulse Resp BP Pulse Ox 98.4 F 72 20 149/85 97 01/24/18 00:15 01/24/18 00:15 01/24/18 00:15 01/24/18 00:15 01/24/18 00:15 Intake and Output: 01/24/18 01/24/18 06:59 18:59 Intake Total 800 900 Output Total 50 360 Balance 750 540 - Medications Medications: Current Medications Acetaminophen (Tylenol 325mg Tab) 650 mg PO Q6 PRN PRN Reason: Fever >100.4 F Albuterol/Ipratropium (Duoneb 3 Mg/0.5 Mg (3 Ml) Ud) 3 ml INH RQ6 [facility] Last Admin: 01/24/18 01:45 Dose: Not Given Dextrose (Dextrose 50% Inj) 0 ml IV STAT PRN; Protocol PRN Reason: Hypoglycemia Protocol Dextrose (Glutose 15) 0 gm PO ONCE PRN; Protocol PRN Reason: Hypoglycemia Protocol Enoxaparin Sodium (Lovenox) 40 mg SC DAILY [facility] Last Admin: 01/23/18 10:43 Dose: 40 mg Glucagon (Glucagen Diagnostic Kit) 0 mg IM STAT PRN; Protocol PRN Reason: Hypoglycemia Protocol Metronidazole (Flagyl) 500 mg in 100 mls @ 100 mls/hr IVPB Q8 [facility] PRN Reason: Protocol Last Admin: 01/24/18 06:27 Dose: 100 mls/hr Dextrose (Dextrose 5% In Water 1000 Ml) 1,000 mls @ 0 mls/hr IV .Q0M PRN; Protocol; Per Protocol PRN Reason: Hypoglycemia Protocol Meropenem 1 gm/ Sodium (Chloride) 100 mls @ 100 mls/hr IVPB Q8 [facility] PRN Reason: Protocol Last Admin: 01/24/18 05:24 Dose: 100 mls/hr Dextrose/Lactated Ringer's (Dextrose 5%/Lactated Ringer's) 1,000 mls @ 100 mls/ hr IV .Q10H [facility] Last Admin: 01/24/18 04:02 Dose: Not Given Insulin Aspart (Novolog) 0 unit SC ACHS [facility] PRN Reason: Protocol Last Admin: 01/23/18 21:45 Dose: Not Given Modafinil (Provigil) 100 mg PO DAILY [facility] Last Admin: 01/23/18 10:43 Dose: Not Given Ondansetron HCl (Zofran Inj) 4 mg IVP Q6 PRN PRN Reason: Nausea/Vomiting Last Admin: 01/20/18 14:54 Dose: 4 mg Simethicone (Mylicon Chew Tab) 80 mg PO ACHS PRN PRN Reason: GI distress Tramadol HCl (Ultram) 25 mg PO Q6H PRN PRN Reason: Pain, moderate (4-7) - Labs Labs: 01/23/18 09:16 01/23/18 09:16 PT 17.8 SECONDS (9.7-12.2) H 01/19/18 20:07 INR 1.6 01/19/18 20:07 APTT 28 SECONDS (21-34) 01/19/18 20:07 - Additional Findings Additional findings: - Constitutional Appears: Well, Non-toxic, No Acute Distress - Head Exam Head Exam: ATRAUMATIC, NORMOCEPHALIC - Eye Exam Eye Exam: Normal appearance. absent: Conjunctival injection, Scleral icterus - ENT Exam ENT Exam: Mucous Membranes Moist, Normal Oropharynx - Respiratory Exam Respiratory Exam: NORMAL BREATHING PATTERN. absent: Accessory Muscle Use, Respiratory Distress - GI/Abdominal Exam GI & Abdominal Exam: Soft, Tenderness (hermelinda-incisional). absent: Distended Additional comments: colostomy pink, patent, and productive of small amount of liquid stool. Liban drain in place with sero-sanguinous output - Extremities Exam Extremities Exam: absent: Calf Tenderness, Pedal Edema, Tenderness - Neurological Exam Neurological Exam: Alert, Awake, Oriented x3 Assessment and Plan - Assessment and Plan (Free Text) Assessment: 37M POD#4 s/p partial descending colectomy with primary anastamosis and diverting colostomy Plan: Monitor colostomy and liban drain output * We will reach out to case management about post-hospital colostomy care as patient lives in his car Advance diet to soft diet and regular if tolerating Continue to encourage ambulation and incentive spirometer use PRN pain medication Psych management discussed with Dr. Welch
[2018-01-24 08:23] LABS: BASO # 0.1 K/uL (0.0-0.2); EOS # 0.2 K/uL (0.0-0.7); EOS % 2.4 % (0.0-4.0); HEMOGLOBIN 10.9 g/dL (12.0-18.0); LYMPH # 1.1 K/uL (1.0-4.3); LYMPH % 12.5 % (20.0-40.0); MEAN CELL VOLUME 89.3 fL (80.0-94.0); MEAN CORPUSCULAR HEMOGLOBIN 31.9 pg (27.0-31.0); MEAN CORPUSCULAR HGB CONC 35.7 g/dL (33.0-37.0); MONO % 11.4 % (0.0-10.0); NEUT # 6.6 K/uL (1.8-7.0); NEUT % 72.7 % (50.0-75.0); RBC 3.42 Mil/uL (4.40-5.90); RED CELL DISTRIBUTION WIDTH 12.9 % (11.5-14.5)
[2018-01-24 08:39] LABS: ALB/GLOB RATIO 0.8 (1.0-2.1); ALT/SGPT 17 U/L (21-72); AST/SGOT 44 U/L (17-59); BLOOD UREA NITROGEN 8 mg/dL (9-20); CALCIUM 8.4 mg/dl (8.6-10.4); GFR AFRICAN-AMERICAN > 60; GFR NON-AFRICAN AMERICAN > 60
[2018-01-24] MEDS: Enoxaparin 40 mg Syringe SC SCH (10:09)
--- NOTE | 2018-01-24 10:31 | CP.PCM.PN ---
Subjective - Date & Time of Evaluation Date of Evaluation: 01/24/18 Time of Evaluation: 10:28 - Subjective Subjective: Colostomy functioning well. wound is healed, no evidence of infection. plan- remove drain now, plan on discharge soon. to remove rogers before d/c. will follow up in office, and plan on reversing colostomy in 3 mos. Objective - Vital Signs/Intake and Output Vital Signs (last 24 hours): Temp Pulse Resp BP Pulse Ox 98.4 F 72 20 149/85 97 01/24/18 00:15 01/24/18 00:15 01/24/18 00:15 01/24/18 00:15 01/24/18 00:15 Intake and Output: 01/24/18 01/24/18 06:59 18:59 Intake Total 800 900 Output Total 50 360 Balance 750 540 - Medications Medications: Current Medications Acetaminophen (Tylenol 325mg Tab) 650 mg PO Q6 PRN PRN Reason: Fever >100.4 F Albuterol/Ipratropium (Duoneb 3 Mg/0.5 Mg (3 Ml) Ud) 3 ml INH RQ6 [facility] Last Admin: 01/24/18 01:45 Dose: Not Given Dextrose (Dextrose 50% Inj) 0 ml IV STAT PRN; Protocol PRN Reason: Hypoglycemia Protocol Dextrose (Glutose 15) 0 gm PO ONCE PRN; Protocol PRN Reason: Hypoglycemia Protocol Enoxaparin Sodium (Lovenox) 40 mg SC DAILY [facility] Last Admin: 01/24/18 10:09 Dose: 40 mg Glucagon (Glucagen Diagnostic Kit) 0 mg IM STAT PRN; Protocol PRN Reason: Hypoglycemia Protocol Metronidazole (Flagyl) 500 mg in 100 mls @ 100 mls/hr IVPB Q8 [facility] PRN Reason: Protocol Last Admin: 01/24/18 06:27 Dose: 100 mls/hr Dextrose (Dextrose 5% In Water 1000 Ml) 1,000 mls @ 0 mls/hr IV .Q0M PRN; Protocol; Per Protocol PRN Reason: Hypoglycemia Protocol Meropenem 1 gm/ Sodium (Chloride) 100 mls @ 100 mls/hr IVPB Q8 [facility] PRN Reason: Protocol Last Admin: 01/24/18 05:24 Dose: 100 mls/hr Dextrose/Lactated Ringer's (Dextrose 5%/Lactated Ringer's) 1,000 mls @ 100 mls/ hr IV .Q10H [facility] Last Admin: 01/24/18 04:02 Dose: Not Given Insulin Aspart (Novolog) 0 unit SC ACHS [facility] PRN Reason: Protocol Last Admin: 01/24/18 08:04 Dose: Not Given Modafinil (Provigil) 100 mg PO DAILY [facility] Last Admin: 01/24/18 10:08 Dose: 100 mg Ondansetron HCl (Zofran Inj) 4 mg IVP Q6 PRN PRN Reason: Nausea/Vomiting Last Admin: 01/20/18 14:54 Dose: 4 mg Simethicone (Mylicon Chew Tab) 80 mg PO ACHS PRN PRN Reason: GI distress Tramadol HCl (Ultram) 25 mg PO Q6H PRN PRN Reason: Pain, moderate (4-7) - Labs Labs: 01/24/18 08:12 01/24/18 08:12 PT 17.8 SECONDS (9.7-12.2) H 01/19/18 20:07 INR 1.6 01/19/18 20:07 APTT 28 SECONDS (21-34) 01/19/18 20:07
--- NOTE | 2018-01-24 14:30 | PCM.PYCHPN ---
Psychiatric Progress Note - Psychiatric Progress Note Patient seen today, length of contact: 15 min Patient Chief Complaint: CC: "I have bipolar disorder" Problems Identified/Issues Discussed: Patient seen and evaluated, chart reviewed and discussed with the nurse. The patient reports that he just had a abdominal surgery. He reports racing thoughts, flight of ideas and poor concentration. However he denies any auditory or visual hallucinations and denies any suicidal ideation or homicidal ideation. He is taking medications and denies any side effects. Supportive therapy and psychoeducation were given. Medication Change: Yes (start Depakote, start Seroquel) Medical Record Reviewed: Yes Mental Status Examination - Cognitive Function Orientation: Person, Place, Situation, Time Memory: Intact Attention: WNL Concentration: Poor Association: Loose Fund of Knowledge: Poor - Mood Mood: Anxious - Affect Affect: Broad - Formal Thought Process Formal Thought Process: Loosening of associations - Suicidal Ideation Suicidal Ideation: No - Homicidal Ideation Homicidal Ideation: No Goal/Treatment Plan - Goal/Treatment Plan Need for Continued Stay: Severe depression anxiety, Severe functional impairment Progress Toward Problem(s) and Goals/Treatment Plan: Bipolar disorder I Psychoeducation Modafinil 100 mg PO daily Start Depakote 250 mg PO BID Start Seroquel 100 mg PO QHS Continue medical management as per medicine and surgery teams - Smoking Cessation Smoking Cessation Initiated: No
--- NOTE | 2018-01-24 14:48 | CP.PCM.PN ---
Subjective - Date & Time of Evaluation Date of Evaluation: 01/24/18 Time of Evaluation: 07:00 - Subjective Subjective: PGY1- Medicine Note Patient seen and examined sitting in chair in hallway today. Patient is s/p partial colectomy with primary anastomosis and transverse loop colostomy POD # 5. Patient is very aggravated about his situation and does not think he can handle having a colostomy. Patient is also worried because at this time he is living out of a car. As per overnight resident patient made a comment that he wanted to jump out the window. He says he will sign whatever paper work is necessary to reverse the colostomy now even if it means he may . Patient explained he will have to keep the colostomy and he is very upset. Patient denies abdominal pain, but complains of a lot of discomfort and gas. Patient denies nausea or vomiting. Objective - Vital Signs/Intake and Output Vital Signs (last 24 hours): Temp Pulse Resp BP Pulse Ox 98.4 F 72 20 149/85 97 01/24/18 00:15 01/24/18 00:15 01/24/18 00:15 01/24/18 00:15 01/24/18 00:15 Intake and Output: 01/24/18 01/24/18 06:59 18:59 Intake Total 800 900 Output Total 50 360 Balance 750 540 - Medications Medications: Current Medications Acetaminophen (Tylenol 325mg Tab) 650 mg PO Q6 PRN PRN Reason: Fever >100.4 F Albuterol/Ipratropium (Duoneb 3 Mg/0.5 Mg (3 Ml) Ud) 3 ml INH RQ6 [facility] Last Admin: 01/24/18 12:59 Dose: 3 ml Dextrose (Dextrose 50% Inj) 0 ml IV STAT PRN; Protocol PRN Reason: Hypoglycemia Protocol Dextrose (Glutose 15) 0 gm PO ONCE PRN; Protocol PRN Reason: Hypoglycemia Protocol Enoxaparin Sodium (Lovenox) 40 mg SC DAILY [facility] Last Admin: 01/24/18 10:09 Dose: 40 mg Glucagon (Glucagen Diagnostic Kit) 0 mg IM STAT PRN; Protocol PRN Reason: Hypoglycemia Protocol Metronidazole (Flagyl) 500 mg in 100 mls @ 100 mls/hr IVPB Q8 [facility] PRN Reason: Protocol Last Admin: 01/24/18 06:27 Dose: 100 mls/hr Dextrose (Dextrose 5% In Water 1000 Ml) 1,000 mls @ 0 mls/hr IV .Q0M PRN; Protocol; Per Protocol PRN Reason: Hypoglycemia Protocol Meropenem 1 gm/ Sodium (Chloride) 100 mls @ 100 mls/hr IVPB Q8 [facility] PRN Reason: Protocol Last Admin: 01/24/18 14:06 Dose: 100 mls/hr Dextrose/Lactated Ringer's (Dextrose 5%/Lactated Ringer's) 1,000 mls @ 100 mls/ hr IV .Q10H [facility] Last Admin: 01/24/18 04:02 Dose: Not Given Insulin Aspart (Novolog) 0 unit SC ACHS [facility] PRN Reason: Protocol Last Admin: 01/24/18 08:04 Dose: Not Given Modafinil (Provigil) 100 mg PO DAILY [facility] Last Admin: 01/24/18 10:08 Dose: 100 mg Ondansetron HCl (Zofran Inj) 4 mg IVP Q6 PRN PRN Reason: Nausea/Vomiting Last Admin: 01/20/18 14:54 Dose: 4 mg Saccharomyces Boulardii (Florastor) 250 mg PO DAILY [facility] Simethicone (Mylicon Chew Tab) 80 mg PO ACHS PRN PRN Reason: GI distress Tramadol HCl (Ultram) 25 mg PO Q6H PRN PRN Reason: Pain, moderate (4-7) - Labs Labs: 01/24/18 08:12 01/24/18 08:12 PT 17.8 SECONDS (9.7-12.2) H 01/19/18 20:07 INR 1.6 01/19/18 20:07 APTT 28 SECONDS (21-34) 01/19/18 20:07 - Constitutional Appears: Non-toxic, No Acute Distress, Agitated - Head Exam Head Exam: ATRAUMATIC, NORMAL INSPECTION - Eye Exam Eye Exam: EOMI, Normal appearance - ENT Exam ENT Exam: Mucous Membranes Moist - Neck Exam Neck Exam: Full ROM - Respiratory Exam Respiratory Exam: Clear to Ausculation Bilateral, NORMAL BREATHING PATTERN. absent: Rales, Rhonchi, Wheezes, Respiratory Distress, Stridor - Cardiovascular Exam Cardiovascular Exam: REGULAR RHYTHM, RRR, +S1, +S2 - GI/Abdominal Exam GI & Abdominal Exam: Tenderness, Normal Bowel Sounds Additional comments: colostomy in place midline incision with rogers, dry/clean/ intact - Extremities Exam Extremities Exam: Full ROM, Normal Inspection. absent: Pedal Edema - Back Exam Back Exam: NORMAL INSPECTION - Neurological Exam Neurological Exam: Alert, Awake, Oriented x3 - Psychiatric Exam Psychiatric exam: Agitated, Anxious, Depressed, Normal Affect - Skin Skin Exam: Normal Color, Warm Additional comments: ecchymosis around incision Assessment and Plan - Assessment and Plan (Free Text) Assessment: (1) Diverticulitis of colon with perforation Assessment & Plan: General surgery, Dr. Welch * s/p partial colectomy with primary anastomosis and transverse loop colostomy POD 5. ID, Dr. Viera Imaging/labs: CT prior to surgical intervention (01/19): interval worsening of inflammatory changes at the distal descending colon and proximal sigmoid colon since the previous exam. interval worsening of free air and free fluid in the abdomen and upper pelvis since the previous study. Extraluminal fluid and air adjacent to sigmoid colon suspicious for early abscess formation. Blood culture and stool culture: negative Medications: * Flagyl 500mg ivpb q8h * Meropenem 1 gm q8h * Percocet 1 tab PO Q4H PRN * Zofran 4mg IV Q6H PRN for nausea (2) Glucose intolerance (impaired glucose tolerance) Assessment & Plan: -HBA1C 6.2 -accuchecks achs -insulin sliding scale- low -hypoglycemia protocol -TSH: 1.19 -Lipid panel: Triglycerides-61, Cholesterol-136, LDL-81, HDL-31 (3) Psychiatric disorder Assessment & Plan: Patient said he wanted to jump out of window overnight 1:1 Precautions [place] [facility] [place] Depression and bipolar -Psych consulted, Dr. Almeida, help appreciated - Continue Modafinil 100mg PO daily (4) Hypokalemia Assessment & Plan: Resolved Repleted appropriately Continue to monitor with labs (5) History of asthma Assessment & Plan: Duonebs 3ml INH RQ6H PRN (6) Postoperative fever Assessment & Plan: Tmax: 100.2 No leukocytosis Procalcitonin: 0.44 Blood culture negative for 5 days and stool culture negative Tylenol 650mg PO q6h prn * Flagyl 500mg ivpb q8h * Meropenem 1 gm q8h * Will continue to monitor * will d/c on Levaquin 500mg po daily for 5 days and Bacid po BID as per Dr. Viera (7) Prophylactic measure Assessment & Plan: -SCDs, Lovenox 40mg SC daily -GI prophylaxis not indicated - Advance diet as tolerated as per surgery Disposition: Awaiting general surgery clearance/ psych clearance
[2018-01-24] MEDS: Saccharomyces Boulardi 250 mg Cap PO SCH (15:00)
[2018-01-24] MEDS: Divalproex 250 mg DR Tab PO SCH ×2 (18:00→19:00)
--- NOTE | 2018-01-24 23:59 | PN ---
DATE: SUBJECTIVE: The patient was asking when he would be having his colostomy changed, closed, and what he should do. He had multiple questions and he was worried how he could get better, but he was calm when I saw him, and he had questions how to deal with this, what food to eat, how not to get into trouble with this. He thinks and he was asking if the diverticulitis has gone and I said it did, but he still has diverticulosis in the other part of his intestine and needs to modify his diet, and he was thankful at that time and I told him he would not need a line. He denies any abdominal pain. No fevers. PHYSICAL EXAMINATION: VITAL SIGNS: T-max is 98.6, pulse 65, blood pressure 153/93, respirations are 20. GENERAL: He gets aggravated easily. He is not taking any medications for his bipolar except that he is on and Provigil, which may be making him too excited, but psychiatrist is following at this time. HEENT: Head is atraumatic. NECK: Supple. LUNGS: Clear. No crackles or rales present. HEART: S1 and S2, regular. ABDOMEN: Has a FATIMAH drain and a colostomy present. EXTREMITIES: No edema. NEUROLOGIC: He is 6 feet tall. He is a big [place] and very inquisitive and gets easily irritated, but when I saw he was not that irritated, but when I am writing my note I can see that he was seen by the psychiatrist for aggravation. IMPRESSION: He had perforated diverticula and with abscess formation, underwent surgery and now he is with the colostomy and a FATIMAH drain. FATIMAH drain is serosanguineous and he is having difficult times accepting the fact that he has to live with this colostomy bag for some time. PLAN: Not to give him anymore antibiotic IV, would leave him on Levaquin for 5 days p.o., and then we will follow if needed. He is being on meropenem, which will be discontinued when he leaves here. Kia Viera MD
[2018-01-25] MEDS: Albuterol-Ipratrop 3 mg / 0.5 (3 ml) UD INH SCH ×3 (01:45→12:27)
[2018-01-25] MEDS: Dextrose 5%/Lactated Ringer's 1,000 ML IV SCH (04:19)
[2018-01-25] MEDS: Meropenem 1 GM in Sodium Chloride 0.9% 100 ML IVPB SCH ×2 (05:30→13:58)
[2018-01-25] MEDS: metroNIDAZOLE IV 500 mg/100 ml 500 MG/100 ML BAG IVPB SCH ×2 (06:30→15:08)
[2018-01-25 07:43] LABS: BASO % 0.3 % (0.0-2.0); EOS # 0.2 K/uL (0.0-0.7); EOS % 1.7 % (0.0-4.0); HEMOGLOBIN 11.2 g/dL (12.0-18.0); LYMPH # 1.2 K/uL (1.0-4.3); LYMPH % 11.1 % (20.0-40.0); MEAN CELL VOLUME 88.5 fL (80.0-94.0); MEAN CORPUSCULAR HEMOGLOBIN 31.7 pg (27.0-31.0); MEAN CORPUSCULAR HGB CONC 35.8 g/dL (33.0-37.0); MEAN PLATELET VOLUME 8.4 fL (7.2-11.7); MONO % 9.3 % (0.0-10.0); NEUT # 8.1 K/uL (1.8-7.0); NEUT % 77.6 % (50.0-75.0); RBC 3.53 Mil/uL (4.40-5.90); RED CELL DISTRIBUTION WIDTH 12.6 % (11.5-14.5); WHITE BLOOD COUNT 10.4 K/uL (4.8-10.8)
[2018-01-25] MEDS: (Novolog) Insulin Aspart, Recombinant 100 u/ml 10 ml vial SC SCH ×3 (08:00→16:42)
[2018-01-25 08:01] VITALS: O2SAT 96
[2018-01-25 08:01] LABS: ALB/GLOB RATIO 0.8 (1.0-2.1); ALT/SGPT 15 U/L (21-72); AST/SGOT 33 U/L (17-59); BLOOD UREA NITROGEN 7 mg/dL (9-20); CALCIUM 8.4 mg/dl (8.6-10.4); GFR AFRICAN-AMERICAN > 60; GFR NON-AFRICAN AMERICAN > 60
[2018-01-25] MEDS: Divalproex 250 mg DR Tab PO SCH (09:57)
[2018-01-25] MEDS: Saccharomyces Boulardi 250 mg Cap PO SCH (09:58)
[2018-01-25] MEDS: Enoxaparin 40 mg Syringe SC SCH (09:58)
--- NOTE | 2018-01-25 10:37 | CP.PCM.PN ---
Subjective - Date & Time of Evaluation Date of Evaluation: 01/25/18 Time of Evaluation: 07:00 - Subjective Subjective: PGY1- Medicine Note Patient seen and examined sitting in chair in hallway today. Patient is s/p partial colectomy with primary anastomosis and transverse loop colostomy POD # 6. Patient says he is feeling a little better today. Patient has abdominal discomfort. Patient denies any nausea or vomiting. Patient is very tearful and worried about his colostomy. Objective - Vital Signs/Intake and Output Vital Signs (last 24 hours): Temp Pulse Resp BP Pulse Ox 98.7 F 74 20 145/87 96 01/25/18 07:59 01/25/18 07:59 01/25/18 07:59 01/25/18 07:59 01/25/18 07:59 Intake and Output: 01/25/18 01/25/18 06:59 18:59 Intake Total 1800 Output Total 2160 Balance -360 - Medications Medications: Current Medications Acetaminophen (Tylenol 325mg Tab) 650 mg PO Q6 PRN PRN Reason: Fever >100.4 F Albuterol/Ipratropium (Duoneb 3 Mg/0.5 Mg (3 Ml) Ud) 3 ml INH RQ6 [facility] Last Admin: 01/25/18 07:10 Dose: 3 ml Dextrose (Dextrose 50% Inj) 0 ml IV STAT PRN; Protocol PRN Reason: Hypoglycemia Protocol Dextrose (Glutose 15) 0 gm PO ONCE PRN; Protocol PRN Reason: Hypoglycemia Protocol Divalproex Sodium (Depakote Dr) 250 mg PO BID [facility] Last Admin: 01/25/18 09:57 Dose: 250 mg Enoxaparin Sodium (Lovenox) 40 mg SC DAILY [facility] Last Admin: 01/25/18 09:58 Dose: 40 mg Glucagon (Glucagen Diagnostic Kit) 0 mg IM STAT PRN; Protocol PRN Reason: Hypoglycemia Protocol Metronidazole (Flagyl) 500 mg in 100 mls @ 100 mls/hr IVPB Q8 [facility] PRN Reason: Protocol Last Admin: 01/25/18 06:30 Dose: 100 mls/hr Dextrose (Dextrose 5% In Water 1000 Ml) 1,000 mls @ 0 mls/hr IV .Q0M PRN; Protocol; Per Protocol PRN Reason: Hypoglycemia Protocol Meropenem 1 gm/ Sodium (Chloride) 100 mls @ 100 mls/hr IVPB Q8 [facility] PRN Reason: Protocol Last Admin: 01/25/18 05:30 Dose: 100 mls/hr Dextrose/Lactated Ringer's (Dextrose 5%/Lactated Ringer's) 1,000 mls @ 100 mls/ hr IV .Q10H [facility] Last Admin: 01/25/18 04:19 Dose: 100 mls/hr Insulin Aspart (Novolog) 0 unit SC ACHS [facility] PRN Reason: Protocol Last Admin: 01/25/18 08:00 Dose: Not Given Modafinil (Provigil) 100 mg PO DAILY [facility] Last Admin: 01/25/18 09:58 Dose: 100 mg Ondansetron HCl (Zofran Inj) 4 mg IVP Q6 PRN PRN Reason: Nausea/Vomiting Last Admin: 01/20/18 14:54 Dose: 4 mg Quetiapine Fumarate (Seroquel) 100 mg PO HS [facility] Last Admin: 01/24/18 21:47 Dose: Not Given Saccharomyces Boulardii (Florastor) 250 mg PO DAILY [facility] Last Admin: 01/25/18 09:58 Dose: 250 mg Simethicone (Mylicon Chew Tab) 80 mg PO ACHS PRN PRN Reason: GI distress Tramadol HCl (Ultram) 25 mg PO Q6H PRN PRN Reason: Pain, moderate (4-7) Last Admin: 01/25/18 01:00 Dose: 25 mg - Labs Labs: 01/25/18 07:32 01/25/18 07:32 PT 17.8 SECONDS (9.7-12.2) H 01/19/18 20:07 INR 1.6 01/19/18 20:07 APTT 28 SECONDS (21-34) 01/19/18 20:07 - Additional Findings Additional findings: - Constitutional Appears: Non-toxic, No Acute Distress, Agitated - Head Exam Head Exam: ATRAUMATIC, NORMAL INSPECTION - Eye Exam Eye Exam: EOMI, Normal appearance - ENT Exam ENT Exam: Mucous Membranes Moist - Neck Exam Neck Exam: Full ROM - Respiratory Exam Respiratory Exam: Clear to Ausculation Bilateral, NORMAL BREATHING PATTERN. absent: Rales, Rhonchi, Wheezes, Respiratory Distress, Stridor - Cardiovascular Exam Cardiovascular Exam: REGULAR RHYTHM, RRR, +S1, +S2 - GI/Abdominal Exam GI & Abdominal Exam: Tenderness, Normal Bowel Sounds Additional comments: colostomy in place midline incision with rogers, dry/clean/ intact - Extremities Exam Extremities Exam: Full ROM, Normal Inspection. absent: Pedal Edema - Back Exam Back Exam: NORMAL INSPECTION - Neurological Exam Neurological Exam: Alert, Awake, Oriented x3 - Psychiatric Exam Psychiatric exam: Agitated, Anxious, Depressed, Normal Affect - Skin Skin Exam: Normal Color, Warm Additional comments: ecchymosis around incision
[2018-01-25 16:24] VITALS: BP 163/96; PULSE 76; TEMP 99.9
--- NOTE | 2018-01-25 16:33 | CP.PCM.DIS ---
Provider - Provider Date of Admission: 01/16/18 23:38 Attending physician: Dilip Ambrosio MD Consults: Surgery (Dr. Welch) ID (Dr. Viera) Psych (Dr. Almeida) Time Spent in preparation of Discharge (in minutes): 45 Diagnosis - Discharge Diagnosis (1) Diverticulitis of colon with perforation Status: Resolved (2) Psychiatric disorder Status: Chronic (3) History of asthma Status: Chronic (4) Obesity Status: Chronic Hospital Course - Lab Results Lab Results: Micro Results 01/16/18 23:41 Blood-Venous Blood Culture - Final NO GROWTH AFTER 5 DAYS 01/16/18 23:41 Blood-Venous Blood Culture - Final NO GROWTH AFTER 5 DAYS 01/16/18 23:41 Blood-Venous Gram Stain - Final TEST NOT PERFORMED 01/18/18 00:40 Stool Stool Culture - Final NO SALMONELLA, SHIGELLA OR CAMPYLOBACTER ISOLATED. Most Recent Lab Values WBC 10.4 K/uL (4.8-10.8) 01/25/18 07:32 RBC 3.53 Mil/uL (4.40-5.90) L 01/25/18 07:32 Hgb 11.2 g/dL (12.0-18.0) L 01/25/18 07:32 Hct 31.2 % (35.0-51.0) L 01/25/18 07:32 MCV 88.5 fL (80.0-94.0) 01/25/18 07:32 MCH 31.7 pg (27.0-31.0) H 01/25/18 07:32 MCHC 35.8 g/dL (33.0-37.0) 01/25/18 07:32 RDW 12.6 % (11.5-14.5) 01/25/18 07:32 Plt Count 303 K/uL (130-400) 01/25/18 07:32 MPV 8.4 fL (7.2-11.7) 01/25/18 07:32 Neut % (Auto) 77.6 % (50.0-75.0) H 01/25/18 07:32 Lymph % (Auto) 11.1 % (20.0-40.0) L 01/25/18 07:32 Cotton % (Auto) 9.3 % (0.0-10.0) 01/25/18 07:32 Eos % (Auto) 1.7 % (0.0-4.0) 01/25/18 07:32 Baso % (Auto) 0.3 % (0.0-2.0) 01/25/18 07:32 Neut # (Auto) 8.1 K/uL (1.8-7.0) H 01/25/18 07:32 Lymph # (Auto) 1.2 K/uL (1.0-4.3) 01/25/18 07:32 Cotton # (Auto) 1.0 K/uL (0.0-0.8) H 01/25/18 07:32 Eos # (Auto) 0.2 K/uL (0.0-0.7) 01/25/18 07:32 Baso # (Auto) 0.0 K/uL (0.0-0.2) 01/25/18 07:32 Neutrophils % (Manual) 79 % (50-75) H 01/22/18 08:36 Band Neutrophils % 2 % (0-2) 01/21/18 06:40 Lymphocytes % (Manual) 9 % (20-40) L 01/22/18 08:36 Reactive Lymphs % 1 % (0-0) H 01/20/18 13:34 Monocytes % (Manual) 11 % (0-10) H 01/22/18 08:36 Eosinophils % (Manual) 1 % (0-4) 01/22/18 08:36 Platelet Estimate Normal (NORMAL) 01/22/18 08:36 RBC Morphology Normal 01/22/18 08:36 PT 17.8 SECONDS (9.7-12.2) H 01/19/18 20:07 INR 1.6 01/19/18 20:07 APTT 28 SECONDS (21-34) 01/19/18 20:07 pO2 47 mm/Hg (30-55) 01/19/18 19:57 VBG pH 7.46 (7.32-7.43) H 01/19/18 19:57 VBG pCO2 31 mmHg (40-60) L 01/19/18 19:57 VBG HCO3 23.9 mmol/L 01/19/18 19:57 VBG Total CO2 23.0 mmol/L (22-28) 01/19/18 19:57 VBG O2 Sat (Calc) 89.9 % (40-65) H 01/19/18 19:57 VBG Base Excess -0.9 mmol/L (0.0-2.0) L 01/19/18 19:57 VBG Potassium 3.4 mmol/L (3.6-5.2) L 01/19/18 19:57 Sodium 136.0 mmol/l (132-148) 01/19/18 19:57 Chloride 106.0 mmol/L (98-107) 01/19/18 19:57 Glucose 137 mg/dl (75-110) H 01/19/18 19:57 Lactate 1.0 mmol/L (0.7-2.1) 01/19/18 19:57 Crit Value Called To Dr ambrosio 01/17/18 00:03 Crit Value Called By Elizabeth alejandre rt 01/17/18 00:03 Crit Value Read Back Y 01/17/18 00:03 Blood Gas Notified Time 122 01/17/18 00:03 Sodium 135 mmol/L (132-148) 01/25/18 07:32 Potassium 3.9 mmol/L (3.6-5.2) 01/25/18 07:32 Chloride 99 mmol/L (98-107) 01/25/18 07:32 Carbon Dioxide 27 mmol/L (22-30) 01/25/18 07:32 Anion Gap 12 (10-20) 01/25/18 07:32 BUN 7 mg/dL (9-20) L 01/25/18 07:32 Creatinine 0.8 mg/dL (0.8-1.5) 01/25/18 07:32 Est GFR ( Amer) > 60 01/25/18 07:32 Est GFR (Non-Af Amer) > 60 01/25/18 07:32 POC Glucose (mg/dL) 96 mg/dL (65-110) 01/25/18 10:57 Random Glucose 100 mg/dL (75-110) 01/25/18 07:32 Hemoglobin A1c 6.2 % (4.2-6.5) 01/17/18 07:20 Calcium 8.4 mg/dl (8.6-10.4) L 01/25/18 07:32 Phosphorus 3.0 mg/dL (2.5-4.5) 01/25/18 07:32 Magnesium 1.8 mg/dL (1.6-2.3) 01/25/18 07:32 Total Bilirubin 0.5 mg/dL (0.2-1.3) 01/25/18 07:32 AST 33 U/L (17-59) 01/25/18 07:32 ALT 15 U/L (21-72) L 01/25/18 07:32 Alkaline Phosphatase 57 U/L (38-126) 01/25/18 07:32 Troponin I < 0.0120 ng/mL (0.00-0.120) 01/16/18 20:49 Total Protein 6.7 g/dL (6.3-8.3) 01/25/18 07:32 Albumin 3.0 g/dL (3.5-5.0) L 01/25/18 07:32 Globulin 3.8 gm/dL (2.2-3.9) 01/25/18 07:32 Albumin/Globulin Ratio 0.8 (1.0-2.1) L 01/25/18 07:32 Triglycerides 61 mg/dL (0-149) D 01/17/18 07:20 Cholesterol 136 mg/dL (0-199) 01/17/18 07:20 LDL Cholesterol Direct 81 mg/dL (0-129) 01/17/18 07:20 HDL Cholesterol 31 mg/dL (30-70) 01/17/18 07:20 Lipase 63 U/L (23-300) 01/16/18 20:49 Procalcitonin 0.44 NG/ML (0.19-0.49) 01/23/18 14:04 TSH 3rd Generation 1.19 mIU/L (0.46-4.68) 01/17/18 07:20 Venous Blood Potassium 3.4 mmol/L (3.6-5.2) L 01/19/18 19:57 Urine Color Yellow (YELLOW) 01/16/18 21:43 Urine Clarity Clear (Clear) 01/16/18 21:43 Urine pH 6.0 (5.0-8.0) 01/16/18 21:43 Ur Specific [place] 1.024 (1.003-1.030) 01/16/18 21:43 Urine Protein Negative mg/dL (NEGATIVE) 01/16/18 21:43 Urine Glucose (UA) Normal mg/dL (Normal) 01/16/18 21:43 Urine Ketones Negative mg/dL (NEGATIVE) 01/16/18 21:43 Urine Blood Negative (NEGATIVE) 01/16/18 21:43 Urine Nitrate Negative (NEGATIVE) 01/16/18 21:43 Urine Bilirubin Negative (NEGATIVE) 01/16/18 21:43 Urine Urobilinogen 4.0 mg/dL (0.2-1.0) 01/16/18 21:43 Ur Leukocyte Esterase Neg Jenae/uL (Negative) 01/16/18 21:43 Urine WBC (Auto) 1 /hpf (0-5) 01/16/18 21:43 Urine RBC (Auto) 2 /hpf (0-3) 01/16/18 21:43 Stool Occult Blood Negative (NEGATIVE) 01/18/18 07:06 Stool Leukocytes, Qual Negative (NEGATIVE) 01/16/18 23:43 Urine Opiates Screen Negative (NEGATIVE) 01/17/18 00:37 Urine Methadone Screen Negative (NEGATIVE) 01/17/18 00:37 Ur Barbiturates Screen Negative (NEGATIVE) 01/17/18 00:37 Ur Phencyclidine Scrn Negative (NEGATIVE) 01/17/18 00:37 Ur Amphetamines Screen Negative (NEGATIVE) 01/17/18 00:37 U Benzodiazepines Scrn Negative (NEGATIVE) 01/17/18 00:37 U Oth Cocaine Metabols Negative (NEGATIVE) 01/17/18 00:37 U Cannabinoids Screen Positive (NEGATIVE) H 01/17/18 00:37 C. difficile Ag & Toxin Negative (NEGATIVE) 01/16/18 23:43 Blood Type A NEGATIVE 01/19/18 20:07 Antibody Screen Negative 01/19/18 20:07 - Hospital Course Hospital Course: HPI: "This patient is a 37yo M w/ a PMhx of depression/anxiety on Modafanil, HTN , and DM (not taking HTn or DM meds) who is coming into the hospital for a 1d history of intense, band like, abdominal pain associated with nausea and diarrhea. He denies blood in the stool. He has had pain like this in the past before, but never this bad and it normally goes away on its own. He admits to fevers/chills, and feeling very thirsty. He denies any chest pain, SOB, dysuria/ freq/urg or lower extremity pain/swelling." First CT showed Severe Recurrent Diverticulitis with Microperforation; 3rd instance. Patient received cipro and ceftriaxone in ED; and was continued on with Zosyn 3.375mg Q6H and metronidazole 500mg Q8H. White count was elevated. Patient was made NPO and given fluids. Dr. Welch (surgery) was consulted. Dr. Viera (ID) was consulted. Patient's abdominal pain was resolving and on 01/18 clear liquids were introduced. On 01/19 patient's abdominal pain became worse again and surgery wanted to repeat a CT. CT prior to surgical intervention (01/19 ) showed interval worsening of inflammatory changes at the distal descending colon and proximal sigmoid colon since the previous exam. interval worsening of free air and free fluid in the abdomen and upper pelvis since the previous study. Extraluminal fluid and air adjacent to sigmoid colon suspicious for early abscess formation. Patient was taken for emergency surgery and ex-lap with colon resection/anastomosis & transverse ostomy for perforated diverticulitis was performed by Dr. Welch. Patient started on Flagyl 500mg ivpb q8h and Meropenem 1 gm q8h along with medications for pain. Upon discharge patient had no abdominal pain only discomfort. Patient was tolerating oral intake with no nausea or vomiting. While in the hospital patient was also checked for comorbidities. Patient's HgA1C was 6.2. Lipid panel was Triglycerides-61, Cholesterol-136, LDL-81, HDL- 31 and TSH: 1.19. Patient has a history of depression and anxiety. Dr. Almeida was consulted. After patient's surgery, patient became more depressed and aggravated. Patient's psychiatric meds were changed as per Dr. Almeida. Patient told nurse one night that if he would have to keep the colostomy he might as well jump out the window. Patient was placed on 1:1. Patient was seen again by psychiatry who adjusted his medications. Patient was stable as per psych. Upon discharge patient's mood was improved and patient had no suicidal or homicidal ideations. This is a summary of the patient's hospital course. Please see chart for full details. Discharge Exam - Additional Findings Additional findings: - Constitutional Appears: Non-toxic, No Acute Distress, Agitated - Head Exam Head Exam: ATRAUMATIC, NORMAL INSPECTION - Eye Exam Eye Exam: EOMI, Normal appearance - ENT Exam ENT Exam: Mucous Membranes Moist - Neck Exam Neck Exam: Full ROM - Respiratory Exam Respiratory Exam: Clear to Ausculation Bilateral, NORMAL BREATHING PATTERN. absent: Rales, Rhonchi, Wheezes, Respiratory Distress, Stridor - Cardiovascular Exam Cardiovascular Exam: REGULAR RHYTHM, RRR, +S1, +S2 - GI/Abdominal Exam GI & Abdominal Exam: Tenderness, Normal Bowel Sounds Additional comments: colostomy in place midline incision with rogers, dry/clean/ intact - Extremities Exam Extremities Exam: Full ROM, Normal Inspection. absent: Pedal Edema - Back Exam Back Exam: NORMAL INSPECTION - Neurological Exam Neurological Exam: Alert, Awake, Oriented x3 - Psychiatric Exam Psychiatric exam: Agitated, Anxious, Depressed, Normal Affect - Skin Skin Exam: Normal Color, Warm Additional comments: ecchymosis around incision Discharge Plan - Follow Up Plan Condition: GOOD Disposition: REHAB FACILITY/REHAB UNIT Instructions: How to Care for Your Ostomy, Adult, Ostomy Reversal, Colostomy Care Additional Instructions: Patient stable for discharge as per Dr. Porter, surgery and ID. Patient to continue medications as prescribed. Patient to make an appointment follow up with Dr. Welch within one week to get rogers removed. Patient to follow up with [facility] or own psychiatrist as an outpatient. Patient to please return to Emergency Room Immediately if symptoms return. Referrals: [facility] [Outside] [facility] [Outside] Bharathi Welch MD [Staff Provider] -
[2018-01-25] MEDS ORDERED: Divalproex 500 mg DR Tab PO SCH (18:00)
--- NOTE | 2018-01-25 21:07 | CP.PCM.PN ---
Subjective - Date & Time of Evaluation Date of Evaluation: 01/25/18 Time of Evaluation: 02:00 - Subjective Subjective: dictated Objective - Vital Signs/Intake and Output Vital Signs (last 24 hours): Temp Pulse Resp BP Pulse Ox 99.9 F H 76 20 163/96 H 96 01/25/18 16:00 01/25/18 16:00 01/25/18 16:00 01/25/18 16:00 01/25/18 16:00 Intake and Output: 01/25/18 01/26/18 18:59 06:59 Intake Total 1080 Output Total 950 Balance 130 - Medications Medications: Current Medications Acetaminophen (Tylenol 325mg Tab) 650 mg PO Q6 PRN PRN Reason: Fever >100.4 F Albuterol/Ipratropium (Duoneb 3 Mg/0.5 Mg (3 Ml) Ud) 3 ml INH RQ6 [facility] Last Admin: 01/25/18 12:27 Dose: 3 ml Clonazepam (Klonopin) 1 mg PO TID [facility] Last Admin: 01/25/18 17:13 Dose: Not Given Dextrose (Dextrose 50% Inj) 0 ml IV STAT PRN; Protocol PRN Reason: Hypoglycemia Protocol Dextrose (Glutose 15) 0 gm PO ONCE PRN; Protocol PRN Reason: Hypoglycemia Protocol Divalproex Sodium (Depakote Dr) 500 mg PO BID [facility] Last Admin: 01/25/18 17:14 Dose: Not Given Enoxaparin Sodium (Lovenox) 40 mg SC DAILY [facility] Last Admin: 01/25/18 09:58 Dose: 40 mg Glucagon (Glucagen Diagnostic Kit) 0 mg IM STAT PRN; Protocol PRN Reason: Hypoglycemia Protocol Metronidazole (Flagyl) 500 mg in 100 mls @ 100 mls/hr IVPB Q8 [facility] PRN Reason: Protocol Last Admin: 01/25/18 15:08 Dose: 100 mls/hr Dextrose (Dextrose 5% In Water 1000 Ml) 1,000 mls @ 0 mls/hr IV .Q0M PRN; Protocol; Per Protocol PRN Reason: Hypoglycemia Protocol Meropenem 1 gm/ Sodium (Chloride) 100 mls @ 100 mls/hr IVPB Q8 [facility] PRN Reason: Protocol Last Admin: 01/25/18 13:58 Dose: 100 mls/hr Dextrose/Lactated Ringer's (Dextrose 5%/Lactated Ringer's) 1,000 mls @ 100 mls/ hr IV .Q10H [facility] Last Admin: 01/25/18 04:19 Dose: 100 mls/hr Insulin Aspart (Novolog) 0 unit SC ACHS [facility] PRN Reason: Protocol Last Admin: 01/25/18 16:42 Dose: Not Given Modafinil (Provigil) 100 mg PO DAILY [facility] Last Admin: 01/25/18 09:58 Dose: 100 mg Ondansetron HCl (Zofran Inj) 4 mg IVP Q6 PRN PRN Reason: Nausea/Vomiting Last Admin: 01/20/18 14:54 Dose: 4 mg Quetiapine Fumarate (Seroquel) 200 mg PO [facility] Saccharomyces Boulardii (Florastor) 250 mg PO DAILY [facility] Last Admin: 01/25/18 09:58 Dose: 250 mg Simethicone (Mylicon Chew Tab) 80 mg PO ACHS PRN PRN Reason: GI distress Tramadol HCl (Ultram) 25 mg PO Q6H PRN PRN Reason: Pain, moderate (4-7) Last Admin: 01/25/18 01:00 Dose: 25 mg - Labs Labs: 01/25/18 07:32 01/25/18 07:32 PT 17.8 SECONDS (9.7-12.2) H 01/19/18 20:07 INR 1.6 01/19/18 20:07 APTT 28 SECONDS (21-34) 01/19/18 20:07
--- NOTE | 2018-01-26 02:06 | PN ---
DATE: SUBJECTIVE: The patient was doing well. He had multiple questions. He has been doing good, otherwise. The drain has been removed, and we are planning to send him to rehabilitation. He does not know how to take ____ and I was planning to give him oral antibiotics, but it seems that he may be better with IV antibiotics as he did have diverticular abscess. PHYSICAL EXAMINATION: VITAL SIGNS: T-max is 98.7, pulse 74, blood pressure 145/87, respirations are 20. HEENT: Head is atraumatic and normocephalic. HEENT exam is unremarkable. Tongue is moist. NECK: Supple. LUNGS: Clear. HEART: S1, S2 is regular. ABDOMEN: Soft. Nontender. No guarding. No rigidity present. His colostomy is functioning. He has surgical site. EXTREMITIES: Have no edema. LABORATORY DATA: Noted from today. White count was 10.4, hemoglobin 11.2, hematocrit 31.2, platelet count is 303. Sodium 135, potassium 3.9, chloride is 99, CO2 is 27, anion gap is 12, BUN 7, creatinine is 0.8, ALT is 15. Liver enzymes are better. His albumin is 3, and he was seen by the surgeon, and they plan to send him to rehabilitation and I agreed with that plan. The patient will follow if needed, otherwise, he is stable. Kia Viera MD
--- NOTE | 2018-01-26 10:51 | PQF SEPSIS ---
This form is a permanent part of the medical record To Landy Ambrosio MD, Patient was presented to the ER with abdominal pain, diarrhea,nausea. History of Depression, Anxiety,HTN, Diabetis not on medication. Admits to fever and chills. WBC was 14.2 H on admission, presence of Tachycardia Treated woth Zosyn in the ER. Phycisian Admission Certification - Sepsis , severe recurrent diveticulitis. Please clarify if SEPSIS was ruled in or out. Thnak you, Clarification of your documentation is requested to better reflect the severity of illness and intensity of treatment of your patient. Indicators present [x] Temp < 96.8 or > 100.4 temp 101.6F [X] WBC count > 12,000/mm3 or 14.2H <000/mm3 or 10% immature neutrophils [] Heart Rate > 90 [] Respiratory Rate > 20 [X] Fever or hypothermia [X] Chills [] Positive blood cultures [] Hypotension [] Metabolic acidosis (Elevated lactate level, anion gap or reduced blood pH) [] Acute confusion /Altered Mental Status [] Shock [] Other: [] Location in the medical record that reflects the above clinical findings: [ History and Physical] Treatment Provided: [] PHYSICIAN'S RESPONSE Based on your medical judgment of the clinical indicators outlined above, are you treating this patient for a known or suspected: [x] Sepsis / Septicemia from the perforated diverticulitis, Please specify organism if known [] [] SIRS (Systemic Inflammatory Response Syndrome) [] Severe Sepsis (Sepsis with Associated Organ Dysfunction) [] Fever of Unknown Origin [] Other, please indicate: [] [] If Unable to Determine, please check the box, sign and date. Present On Admission (POA) Indicator: [x] Present at the time of admission [] Not present at the time of admission [] Clinically Undetermined In responding to this query, please exercise your independent professional judgment. The fact that a question is asked does not imply that any particular answer is desired or expected. Thank you for your clarification on this documentation. If you have any questions please call:[ ] * Thank you, [ Serene Radford, [facility] ] medical communication specialist [facility]
== END 2018-01-25 20:45 | DRG 854 ==
LOC: C.ER 19:56 → C.9E 23:38 → C.3T 01-17 00:04
PROVIDERS: ADMIT Internal Medicine; ATTEND Internal Medicine
PROC: 0D1L0Z4 Bypass Transverse Colon to Cutaneous, Open Approach (ICD-10-PCS; 2018-01-19)
PROC: 0D9 Gastrointestinal System, Drainage (ICD-10-PCS; 2018-01-19)
PROC: 0DBG0ZZ Excision of Left Large Intestine, Open Approach (ICD-10-PCS; principal; 2018-01-19 20:30)
DX: A41.9 Sepsis, unspecified organism (principal); K57.20 Diverticulitis of large intestine with perforation and abscess without bleeding; F31.12 Bipolar disorder, current episode manic without psychotic features, moderate; E10.65 Type 1 diabetes mellitus with hyperglycemia; E66.9 Obesity, unspecified; Z68.35 Body mass index [BMI] 35.0-35.9, adult; E78.00 Pure hypercholesterolemia, unspecified; E87.6 Hypokalemia; F12.90 Cannabis use, unspecified, uncomplicated; F20.9 Schizophrenia, unspecified; J45.909 Unspecified asthma, uncomplicated; Z59.0 Homelessness; Z79.4 Long term (current) use of insulin; I10 Essential (primary) hypertension; F17.210 Nicotine dependence, cigarettes, uncomplicated; N30.90 Cystitis, unspecified without hematuria; F41.8 Other specified anxiety disorders

== ENCOUNTER 2018-05-19 09:56 | Emergency (ER) | payer MEDICARE, MEDICAID ==
[2018-05-19 09:57] VITALS: BMI 38.0
[2018-05-19 10:01] VITALS: BP 167/96; PULSE 73; TEMP 97.9; O2SAT 97
--- NOTE | 2018-05-19 10:11 | C.PDOC ---
History Of Present Illness REQUESTING REFILL ON COLOSTOMY SUPPLES, RAN OUT 3 DAYS AGO. PS NO LONGER W PREV SURGEON AND RX FROM PRIOR PHARMACY. PENDING SURG REVISION 8.[address] CORONADO. NO NEW SX EXAM NAD ABD RLQ COLOSTOMY SKIN NO ERYTHEMA PER PT, SIZE = 38 MM/1.5" RX FOR COLOSTOMY WAFER AND BAG 38 MM/1.5 GIVEN Time Seen by Provider: 05/19/18 10:06 Chief Complaint (Nursing): Medical Clearance History Per: Patient History/Exam Limitations: no limitations Past Medical History Reviewed: Historical Data, Nursing Documentation, Vital Signs Vital Signs: Last Vital Signs Temp 97.9 F 05/19/18 10:08 Pulse 73 05/19/18 10:08 Resp 20 05/19/18 10:08 BP 167/96 H 05/19/18 10:08 Pulse Ox 97 05/19/18 10:50 - Medical History PMH: Anxiety, Asthma, Bipolar Disorder, Bronchitis, Depression, Hypercholesterolemia, Schizophrenia, Seizures (PT. NOT SURE ONLY ONCE "I THINK BECAUSE I ABBY'T EATEN") Surgical History: Appendectomy - [facility] Procedures BYPASS TRANSVERSE COLON TO CUTANEOUS, OPEN APPROACH (01/16/18) CLOSED ENDOSCOPIC BIOPSY OF LARGE INTESTINE (05/30/14) DRAINAGE OF L LG INTEST WITH DRAIN DEV, PERC APPROACH (01/16/18) EXCISION OF LEFT LARGE INTESTINE, OPEN APPROACH (01/16/18) TETANUS TOXOID ADMINIST (05/26/13) Family History: States: No Known Family Hx - Social History Hx Tobacco Use: Yes Hx Alcohol Use: Yes Hx Substance Use: Yes (marijuana) - Immunization History Hx Tetanus Toxoid Vaccination: No Hx Influenza Vaccination: No Hx Pneumococcal Vaccination: No Review Of Systems Except As Marked, All Systems Reviewed And Found Negative. Physical Exam - Physical Exam Appears: No Acute Distress Skin: Normal Color, Warm, Dry, Other (no erythema) Head: Atraumatic, Normacephalic Eye(s): bilateral: Normal Inspection Respiratory: Other (NARD) Gastrointestinal/Abdominal: Other (RLQ colostomy) Neurological/Psych: Oriented x3, Normal Speech ED Course And Treatment O2 Sat by Pulse Oximetry: 97 (RA) Pulse Ox Interpretation: Normal Medical Decision Making Medical Decision Making: PER PT, SIZE = 38 MM/1.5" RX FOR COLOSTOMY WAFER AND BAG 38 MM/1.5 GIVEN Disposition Counseled Patient/Family Regarding: Diagnosis, Need For Followup - Disposition Referrals: Bharathi Coronado MD [Staff Provider] - Disposition: HOME/ ROUTINE Disposition Time: 10:21 Condition: IMPROVED Instructions: Colostomy Care Forms: [facility] (Scottish) - Clinical Impression Clinical Impression: Prescription refill - Scribe Statement The provider has reviewed the documentation as recorded by the Nithinibe Becky Smallwood Provider Attestation: All medical record entries made by the Nithinibcurt were at my direction and personally dictated by me. I have reviewed the chart and agree that the record accurately reflects my personal performance of the history, physical exam, medical decision making, and the department course for this patient. I have also personally directed, reviewed, and agree with the discharge instructions and disposition.
[2018-05-19 10:57] VITALS: RESP 18
== END 2018-05-19 10:46 | disposition home or self-care (01) ==
LOC: C.ER 09:56
DX: Z76.0 Encounter for issue of repeat prescription (principal)

== ENCOUNTER 2018-05-26 08:07 | Inpatient (IN) | payer MEDICARE, MEDICAID ==
[2018-05-19 09:25] VITALS: BMI 38.0
[2018-05-26] MEDS ORDERED: Succinylcholine Chloride 20 mg/ml Syr (5 ml) IV ONE (09:18)
[2018-05-26] MEDS ORDERED: Midazolam 2 MG/2 ML VIAL ONE (09:18)
[2018-05-26] MEDS ORDERED: Rocuronium 10 mg/ml (5 ml) ONE (09:18)
[2018-05-26] MEDS ORDERED: Propofol 10 mg/ml Inj (20 ML) ONE (09:18)
[2018-05-26] MEDS ORDERED: ceFAZolin IV 1 gm in Dextrose 2 GM/100 ML BAG IVPB ONE (09:23)
[2018-05-26] MEDS ORDERED: metroNIDAZOLE IV 500 mg/100 ml 0 MG/0 ML BAG ONE (09:24)
[2018-05-26] MEDS ORDERED: Lidocaine Hydrochloride 5 ML INJ ONE (10:30)
[2018-05-26] MEDS ORDERED: HYDROmorphone 1 mg/ml ISec IVP PRN (10:46)
[2018-05-26] MEDS: HYDROmorphone 0.5 mg/0.5 ml ISec IVP PRN ×3 (10:57→12:05)
--- NOTE | 2018-05-26 10:57 | PCM.SURG1 ---
Surgeon's Initial Post Op Note - Surgeon's Notes Surgeon: Yuri Polymer Chemist: Rafaela PGY4, Roys PGY4 Type of Anesthesia: General Endo Anesthesia Administered By: Buddy Pre-Operative Diagnosis: Diverticulitis s/p sigmoidectomy w. diverting ileostomy Operative Findings: diverting ileostomy Post-Operative Diagnosis: same Operation Performed: reversal of loop ileostomy Specimen/Specimens Removed: skin/bowel Estimated Blood Loss: EBL {In ML}: 30 Blood Products Given: N/A Drains Used: [place] Post-Op Condition: Good Date of Surgery/Procedure: 05/26/18 Time of Surgery/Procedure: 10:57
[2018-05-26] MEDS ORDERED: Lactated Ringer's 1,000 ML IV ONE (12:00)
[2018-05-26] MEDS: Lactated Ringer's 1,000 ML IV SCH ×4 (13:19→19:48)
[2018-05-26] MEDS: (Novolin R) Insulin Human Regular 100 units/ml vial SC SCH ×3 (13:20→22:09)
[2018-05-26] MEDS: HYDROmorphone 1 mg/ml ISec IVP PRN ×2 (16:15→19:44)
[2018-05-27] MEDS: HYDROmorphone 1 mg/ml ISec IVP PRN ×5 (01:55→21:49)
[2018-05-27] MEDS: Lactated Ringer's 1,000 ML IV SCH ×2 (04:01→13:41)
--- NOTE | 2018-05-27 06:16 | OP ---
Copied To: Bharathi Welch MD Attending MD: Bharathi Welch MD PROCEDURE DATE: 05/26/2018 PREOPERATIVE DIAGNOSIS: Transverse colostomy, status post sigmoid resection for perforated diverticulitis. PROCEDURE PERFORMED: Closure of colostomy. SURGEON: Bharathi Welch MD FINDINGS: On the right upper quadrant, there is a stomal opening, which is functioning. No other pathology noted at the present time. DESCRIPTION OF PROCEDURE: Under general anesthesia, the patient was prepared and draped in usual sterile fashion. A transverse elliptical incision was made around the colostomy. Dissection was carried all the way down the subcutaneous tissue. The skin surrounding the stoma was then excised exposing about 1 inch of the colon. This was clinched. Bleeding was controlled with electrocautery. Then, the colostomy was closed transversally with the AutoSuture model TA-30. Then, dissection was carried out all the way down to the fascia to mobilize the rest of the colon. It was dropped back into the peritoneal cavity. No bleeding was noted. The area was irrigated with less amount of solution. But before dropping it into the peritoneal cavity, was applied. The wound was then closed with multiple interrupted [id number] sutures of #1 fascia, muscle, and peritoneum. subcutaneous sutures of 2-0 chromic was applied. The skin was closed with multiple skin rogers. The estimated blood loss was about 30 mL. No complications. Bharathi Welch MD
[2018-05-27] MEDS: (Novolin R) Insulin Human Regular 100 units/ml vial SC SCH ×3 (07:30→21:48)
[2018-05-27 08:21] LABS: BLOOD UREA NITROGEN 12 mg/dL (9-20); GFR NON-AFRICAN AMERICAN > 60
[2018-05-27 08:22] LABS: BASO % 0.4 % (0.0-2.0); EOS # 0.3 K/uL (0.0-0.7); EOS % 3.5 % (0.0-4.0); HEMOGLOBIN 14.7 g/dL (12.0-18.0); LYMPH # 1.6 K/uL (1.0-4.3); LYMPH % 18.6 % (20.0-40.0); MEAN CELL VOLUME 90.7 fL (80.0-94.0); MEAN CORPUSCULAR HEMOGLOBIN 31.9 pg (27.0-31.0); MEAN CORPUSCULAR HGB CONC 35.2 g/dL (33.0-37.0); MEAN PLATELET VOLUME 7.9 fL (7.2-11.7); MONO # 1.1 K/uL (0.0-0.8); NEUT # 5.6 K/uL (1.8-7.0); NEUT % 64.5 % (50.0-75.0); RBC 4.6 Mil/uL (4.40-5.90); RED CELL DISTRIBUTION WIDTH 12.6 % (11.5-14.5); WHITE BLOOD COUNT 8.6 K/uL (4.8-10.8)
[2018-05-27 09:32] VITALS: RESP 20
[2018-05-27] MEDS: Enoxaparin 40 mg Syringe SC SCH (10:07)
--- NOTE | 2018-05-27 15:01 | CP.PCM.PN ---
Subjective - Date & Time of Evaluation Date of Evaluation: 05/27/18 Time of Evaluation: 07:00 - Subjective Subjective: GENERAL SURGERY PROGRESS NOTE FOR DR. CORONADO Patient seen and examined at bedside. He denies nausea or vomiting. States he is thirsty. No flatus or BM yet since surgery. Has not been OOB yet. Objective - Vital Signs/Intake and Output Vital Signs (last 24 hours): Temp Pulse Resp BP Pulse Ox 99.2 F 80 20 129/78 98 05/27/18 09:29 05/27/18 09:29 05/27/18 09:29 05/27/18 09:29 05/27/18 09:29 Intake and Output: 05/27/18 05/27/18 06:59 18:59 Intake Total 2050 Output Total 600 Balance 1450 - Medications Medications: Current Medications Clonazepam (Klonopin) 1 mg PO TID [facility] Last Admin: 05/27/18 13:40 Dose: 1 mg Docusate Sodium (Colace) 100 mg PO BID [facility] Last Admin: 05/27/18 10:06 Dose: 100 mg Enoxaparin Sodium (Lovenox) 40 mg SC DAILY [facility] Last Admin: 05/27/18 10:07 Dose: 40 mg Hydromorphone HCl (Dilaudid) 1 mg IVP Q3H PRN PRN Reason: Pain, moderate (4-7) Last Admin: 05/27/18 10:06 Dose: 1 mg Lactated Ringer's (Lactated Ringer's) 1,000 mls @ 100 mls/hr IV .Q10H [facility] Last Admin: 05/26/18 19:30 Dose: Not Given Lactated Ringer's (Lactated Ringer's) 1,000 mls @ 125 mls/hr IV .Q8H [facility] Last Admin: 05/27/18 13:41 Dose: 125 mls/hr Insulin Human Regular (Novolin R) 0 unit SC ACHS [facility] PRN Reason: Protocol Last Admin: 05/27/18 07:30 Dose: Not Given Metoclopramide HCl (Reglan) 10 mg IVP DAILY [facility] Last Admin: 05/27/18 13:40 Dose: 10 mg Modafinil (Provigil) 100 mg PO DAILY [facility] Last Admin: 05/27/18 10:07 Dose: 100 mg Ondansetron HCl (Zofran Inj) 4 mg IVP Q6 PRN PRN Reason: Nausea/Vomiting - Labs Labs: 05/27/18 07:35 05/27/18 07:35 - Constitutional Appears: Non-toxic, No Acute Distress - Head Exam Head Exam: ATRAUMATIC, NORMAL INSPECTION - Eye Exam Eye Exam: EOMI, Normal appearance - Respiratory Exam Respiratory Exam: NORMAL BREATHING PATTERN. absent: Respiratory Distress - Cardiovascular Exam Cardiovascular Exam: +S1, +S2 - GI/Abdominal Exam GI & Abdominal Exam: Soft, Tenderness (mild incisional tenderness). absent: Distended, Firm, Guarding, Rigid, Rebound Additional comments: Small amount of drainage on dressing (sun drain in wound) - Neurological Exam Neurological Exam: Alert, Awake, Oriented x3 - Psychiatric Exam Psychiatric exam: Normal Affect, Normal Mood - Skin Skin Exam: Dry, Warm Assessment and Plan - Assessment and Plan (Free Text) Assessment: 38yo M s/p Reversal of loop colostomy, POD#1 - Advanced to [facility]D - PT ordered - Strongly encouraged ambulation and IS use - Monitor for return of bowel function - DVT PPx: Lovenox - Switched IV fluids from LR to D5 1/2NS +20K - Discussed plan with Dr. Yuri Gallegos PGY-4
[2018-05-27] MEDS ORDERED: Potassium Ch 20mEq in D5-1/2NS 1,000 ML IV SCH (15:15)
[2018-05-28] MEDS: HYDROmorphone 1 mg/ml ISec IVP PRN ×3 (01:08→09:37)
[2018-05-28 07:54] VITALS: BP 131/84; PULSE 70; TEMP 98; O2SAT 97
[2018-05-28] MEDS: (Novolin R) Insulin Human Regular 100 units/ml vial SC SCH (08:27)
[2018-05-28] MEDS: Enoxaparin 40 mg Syringe SC SCH (09:35)
--- NOTE | 2018-05-28 10:11 | CP.PCM.PN ---
Subjective - Date & Time of Evaluation Date of Evaluation: 05/28/18 Time of Evaluation: 09:00 - Subjective Subjective: Patient seen and examined. No complaints. Surgical incision site c/d/i. Tolerating clears. Having BM, passing flatus. Objective - Vital Signs/Intake and Output Vital Signs (last 24 hours): Temp Pulse Resp BP Pulse Ox 98 F 70 20 131/84 97 05/28/18 07:00 05/28/18 07:00 05/28/18 07:00 05/28/18 07:00 05/28/18 07:00 Intake and Output: 05/28/18 05/28/18 06:59 18:59 Intake Total 400 Balance 400 - Medications Medications: Current Medications Clonazepam (Klonopin) 1 mg PO TID [facility] Last Admin: 05/28/18 09:36 Dose: 1 mg Docusate Sodium (Colace) 100 mg PO BID [facility] Last Admin: 05/28/18 09:36 Dose: 100 mg Enoxaparin Sodium (Lovenox) 40 mg SC DAILY [facility] Last Admin: 05/28/18 09:35 Dose: 40 mg Hydromorphone HCl (Dilaudid) 1 mg IVP Q3H PRN PRN Reason: Pain, moderate (4-7) Last Admin: 05/28/18 09:37 Dose: 1 mg Lactated Ringer's (Lactated Ringer's) 1,000 mls @ 100 mls/hr IV .Q10H [facility] Last Admin: 05/26/18 19:30 Dose: Not Given Potassium Chloride/Dextrose/Sod Cl (Potassium Chl 20 Meq In D5-1/2ns) 1,000 mls @ 50 mls/hr IV .Q20H [facility] Last Admin: 05/27/18 18:02 Dose: 50 mls/hr Insulin Human Regular (Novolin R) 0 unit SC ACHS [facility] PRN Reason: Protocol Last Admin: 05/28/18 08:27 Dose: Not Given Metoclopramide HCl (Reglan) 10 mg IVP DAILY [facility] Last Admin: 05/28/18 09:36 Dose: 10 mg Modafinil (Provigil) 100 mg PO DAILY [facility] Last Admin: 05/28/18 09:36 Dose: 100 mg Ondansetron HCl (Zofran Inj) 4 mg IVP Q6 PRN PRN Reason: Nausea/Vomiting - Labs Labs: 05/27/18 07:35 05/27/18 07:35 - Constitutional Appears: No Acute Distress - Head Exam Head Exam: NORMOCEPHALIC - Eye Exam Eye Exam: EOMI, Normal appearance - ENT Exam ENT Exam: Mucous Membranes Moist - Respiratory Exam Respiratory Exam: NORMAL BREATHING PATTERN - Cardiovascular Exam Cardiovascular Exam: +S1, +S2 - GI/Abdominal Exam GI & Abdominal Exam: Soft - Neurological Exam Neurological Exam: Alert, Awake, Oriented x3 - Psychiatric Exam Psychiatric exam: Normal Mood - Skin Skin Exam: Dry, Intact, Warm Assessment and Plan - Assessment and Plan (Free Text) Assessment: 38M with colostomy reversal POD 2 Plan: Adv diet as tolerated D/c fluids DVT ppx D/C sun drain Encourage IS use and ambulation If tolerates diet will d/c home tomorrow D/w Dr. Yuri Ochoa PGY3
== END 2018-05-28 13:00 | disposition left against medical advice (07) | DRG 331 ==
LOC: C.9S 08:07 → C.6T 11:23
PROVIDERS: ADMIT Surgery; ATTEND Surgery
PROC: 0DBL0ZZ Excision of Transverse Colon, Open Approach (ICD-10-PCS; principal; 2018-05-26 09:30)
DX: Z43.3 Encounter for attention to colostomy (principal); Z93.3 Colostomy status; Z87.19 Personal history of other diseases of the digestive system; Z87.820 Personal history of traumatic brain injury; F17.210 Nicotine dependence, cigarettes, uncomplicated

== ENCOUNTER 2018-05-28 13:50 | Emergency (ER) | payer MEDICARE, MEDICAID ==
[2018-05-28 13:54] VITALS: BMI 38.0
--- NOTE | 2018-05-28 15:18 | C.PDOC ---
History Of Present Illness 38 year old male returns to ED after he eloped from inpatient. . Pt was admitted for colostomy reversal, and had reportedly eloped earlier. Denies any other complaints at this time. Time Seen by Provider: 05/28/18 14:35 Chief Complaint (Nursing): Abdominal Pain History Per: Patient History/Exam Limitations: no limitations Past Medical History Reviewed: Historical Data, Nursing Documentation, Vital Signs Vital Signs: Last Vital Signs Temp 98.5 F 05/28/18 15:38 Pulse 84 05/28/18 15:38 Resp 18 05/28/18 15:38 BP 118/72 05/28/18 15:38 Pulse Ox 99 05/28/18 16:10 - Medical History PMH: Anxiety, Asthma, Bipolar Disorder, Bronchitis, Depression, Diverticulitis ( HX: PERFORATED SIGMOID SEC. TO DIVETTICULITIS), Hypercholesterolemia, Schizophrenia, Seizures Denies: HIV, Chronic Kidney Disease, Sexually Transmitted Disease Surgical History: Appendectomy - [facility] Procedures BYPASS TRANSVERSE COLON TO CUTANEOUS, OPEN APPROACH (01/16/18) CLOSED ENDOSCOPIC BIOPSY OF LARGE INTESTINE (05/30/14) DRAINAGE OF L LG INTEST WITH DRAIN DEV, PERC APPROACH (01/16/18) EXCISION OF LEFT LARGE INTESTINE, OPEN APPROACH (01/16/18) TETANUS TOXOID ADMINIST (05/26/13) Family History: States: Unknown Family Hx - Social History Hx Tobacco Use: Yes Hx Alcohol Use: No Hx Substance Use: Yes - Immunization History Hx Tetanus Toxoid Vaccination: No Hx Influenza Vaccination: No Hx Pneumococcal Vaccination: No Review Of Systems Except As Marked, All Systems Reviewed And Found Negative. Constitutional: Negative for: Fever, Chills Physical Exam - Physical Exam Appears: Non-toxic, No Acute Distress Skin: Normal Color, Warm, Dry Head: Atraumatic, Normacephalic Eye(s): bilateral: Normal Inspection Oral Mucosa: Moist Cardiovascular: Rhythm Regular Respiratory: Normal Breath Sounds, No Rales, No Rhonchi, No Wheezing Gastrointestinal/Abdominal: Soft, No Tenderness, Other (clean, dry incision ) Extremity: Normal ROM Neurological/Psych: Oriented x3, Normal Speech, Normal Cognition ED Course And Treatment O2 Sat by Pulse Oximetry: 99 Medical Decision Making Medical Decision Making: pt was evaluated by surgical team, prior to my assessment. who state pt can discharged and will follow up as outpatient. drain was removed by surgical team mami lovell discharge. Disposition - Disposition Referrals: Bharathi Welch MD [Staff Provider] - Disposition: HOME/ ROUTINE Disposition Time: 15:12 Condition: STABLE Additional Instructions: remove rogers in 10-14days Dressing change daily Ok to take shower with soap and water. Dry LIquid diet no heavy lifting Instructions: Ostomy Reversal Forms: [employer] (Japanese) - Clinical Impression Clinical Impression: Encounter for ostomy nurse consultation, Post-operative state - Scribe Statement The provider has reviewed the documentation as recorded by the Scribe KP All medical record entries made by the Scribe were at my direction and personally dictated by me. I have reviewed the chart and agree that the record accurately reflects my personal performance of the history, physical exam, medical decision making, and the department course for this patient. I have also personally directed, reviewed, and agree with the discharge instructions and disposition.
--- NOTE | 2018-05-28 15:20 | C.PDOC ---
Time Seen by Provider: 05/28/18 14:35 Chief Complaint (Nursing): Abdominal Pain Past Medical History Vital Signs: Last Vital Signs Temp 98.3 F 05/28/18 14:28 Pulse 88 05/28/18 14:28 Resp 20 05/28/18 14:28 BP 124/81 05/28/18 14:28 Pulse Ox 99 05/28/18 14:28 - Medical History PMH: Anxiety, Asthma, Bipolar Disorder, Bronchitis, Depression, Diverticulitis ( HX: PERFORATED SIGMOID SEC. TO DIVETTICULITIS), Hypercholesterolemia, Schizophrenia, Seizures Denies: HIV, Chronic Kidney Disease, Sexually Transmitted Disease Surgical History: Appendectomy - [facility] Procedures BYPASS TRANSVERSE COLON TO CUTANEOUS, OPEN APPROACH (01/16/18) CLOSED ENDOSCOPIC BIOPSY OF LARGE INTESTINE (05/30/14) DRAINAGE OF L LG INTEST WITH DRAIN DEV, PERC APPROACH (01/16/18) EXCISION OF LEFT LARGE INTESTINE, OPEN APPROACH (01/16/18) TETANUS TOXOID ADMINIST (05/26/13) Family History: States: Unknown Family Hx - Social History Hx Tobacco Use: Yes Hx Alcohol Use: No Hx Substance Use: Yes - Immunization History Hx Tetanus Toxoid Vaccination: No Hx Influenza Vaccination: No Hx Pneumococcal Vaccination: No ED Course And Treatment O2 Sat by Pulse Oximetry: 99 Disposition - Disposition Referrals: Bharathi Welch MD [Staff Provider] - Disposition: HOME/ ROUTINE Disposition Time: 15:12 Condition: STABLE Additional Instructions: remove rogers in 10-14days Dressing change daily Ok to take shower with soap and water. Dry LIquid diet no heavy lifting Instructions: Ostomy Reversal Forms: [employer] (Maori) - Clinical Impression Clinical Impression: Encounter for ostomy nurse consultation, Post-operative state
[2018-05-28 15:39] VITALS: BP 118/72; PULSE 84; RESP 18; TEMP 98.5
[2018-05-28 15:54] VITALS: O2SAT 99
== END 2018-05-28 15:39 | disposition home or self-care (01) ==
LOC: C.ER 13:50
DX: Z04.8 Encounter for examination and observation for other specified reasons (principal)